=== PATIENT | male | born 1945 | race Caucasian/White ===

== ENCOUNTER 2016-10-28 16:36 | Inpatient (IN) ==
[2016-10-28] MEDS ORDERED: cefTRIAXone 1,000 MG in SODIUM CHLORIDE 0.9% 100 ML IV STA (17:48)
--- NOTE | 2016-10-28 17:48 | Emergency Department Note ---
Arrival - Arrival Chief Complaint: Urogenital - Male Stated Complaint: Bad infection-wrong Antibiotic given ED Nursing Triage Note: pt was seen here thursday morning and had a uti. pt was told today that he needs to be admitted to change antibiotics Mode of Arrival: Wheelchair Source: Patient Time Seen by Provider: 10/28/16 17:31 - History of Present Illness HPI Narrative: 71 y/o white male presents to the ER stating he needs to be admitted for his UTI. Patient was seen in the ER Thursday, diagnosed with a UTI, and sent home on Cipro. He was notified by the ER and Dr. Degroot's office that his blood cultures came back positive for E. Coli and he needs to be admitted. Patient states "I self catheterize three times a day due to a week bladder". Denies fever, chills, or nausea/vomiting. States he does have a decreased appetite, hematuria, and weakness. Past medical history significant for dyslipidemia, hypothyroidism, skin cancer, toe amputations. Primary Care Physician: Dr. Degroot. Onset (ago): day(s) (3) Severity: mild Allergies/Adverse Reactions: Allergies Allergy/AdvReac Type Severity Reaction Status Date / Time Sulfa (Sulfonamide Allergy RASH Verified 09/12/16 22:45 Antibiotics) Home Medications: Home Medications Medication Instructions Recorded Confirmed Type Insulin NPH/Regular 70/30 [HumuLIN 85 unit SUBCUT DIRECTED 12/25/15 09/12/16 History 70/30] Multivit-Min/FA/Lycopen/Lutein 1 each PO DAILY 12/25/15 09/12/16 History [Centrum Silver Tablet] Pravastatin [Pravachol] 40 mg PO DAILY 12/25/15 09/12/16 History Insulin NPH/Regular 70/30 [HumuLIN 61 units SUBCUT BEDTIME 02/05/16 09/12/16 History 70/30] Levothyroxine Sodium 1 tablet PO DAILY 02/05/16 09/12/16 History Magnesium Oxide 1 tablet PO DAILY 02/05/16 09/12/16 History Citalopram Hydrobromide [Celexa] 20 mg PO DAILY 09/12/16 09/12/16 History Ciprofloxacin Tab [Cipro Tab] 500 mg PO Q12HR #20 tablet 09/13/16 Rx Ciprofloxacin Tab [Cipro Tab] 500 mg PO BID #20 tablet 10/26/16 Rx Phenazopyridine HCl [Pyridium] 200 mg PO TID #9 tablet 10/26/16 Rx Review of System - Review of System 12 point system: reviewed and no additional remarkable complaints except as stated - Review of System Constitutional: Present: weakness, other (decreased appetite ) Genitourinary male: Present: hematuria Medical,Surgical,& Family Hx - Medical History Neurology: No history of: Seizures HEENT: History of: Ear Problem ([place]), Eye Problem (left eye blindness), Dental Problems (implants) Endocrine: History of: Diabetes Mellitus (IDDM), Dyslipidemia, Thyroid Disorder Genitourinary: History of: Bladder Problem ([place]) No history of: Prostate Problems (pt states no prostate problems) Gastrointestinal: History of: Polyps (removed) Musculoskeletal: History of: 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, 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 digit), Back/Neck Problems Other: History of: Cancer (skin cancer) - Surgical History HEENT Surgeries: Surgical HX of: Eye Surgery (left eye, right cataract surgery) Abdominal Surgeries: Surgical HX of: Colonoscopy Reproductive Surgeries: Surgical HX of;: Cystoscopy Orthopedic Surgeries: Surgical HX of;: Orthopedic Surgery (left shoulder surgery ) - Social History Smoking Status: Never smoker Frequency of Alcohol Use: None Type of Drug Use: None Exam Vital Signs: Vital Signs Temperature 98.4 F 10/28/16 16:41 Pulse Rate 92 H 10/28/16 16:41 Respiratory Rate 18 10/28/16 16:41 Blood Pressure 124/90 10/28/16 16:41 O2 Sat by Pulse Oximetry 97 10/28/16 16:41 - General General appearance: alert, in no apparent distress - ENT ENT exam: Present: normal exam, normal oropharynx, mucous membranes moist - Chest Chest inspection: Present: normal inspection - Respiratory Respiratory exam: Present: normal lung sounds bilaterally - Cardiovascular Cardiovascular exam: Present: regular rate, normal rhythm, normal heart sounds - Abdominal Exam Abdominal exam: Present: soft, normal bowel sounds. Absent: tenderness - Extremities Exam Extremities exam: Present: normal inspection, full ROM - Back Exam Back exam: Absent: CVA tenderness (R), CVA tenderness (L) - Neurological Exam Neurological exam: Present: alert, oriented X3 - Psychiatric Psychiatric exam: Present: normal affect, normal mood - Skin Skin exam: Present: warm, dry Course - Consultations Consultation #1: Dr. Alonso Time: 18:00 (Will admit to Dr. Degroot ) Results - Labs CBC & BMP: 10/28/16 17:45 Disposition Clinical Impression: UTI (urinary tract infection) Case discussed with: patient, patient's family Disposition: Still a Patient Condition: Stable
[2016-10-28] MEDS ORDERED: cefTRIAXone 1,000 MG VIAL ONE (17:59)
[2016-10-28 18:05] LABS: Basophils # 0.1 10*3/uL (0.0-0.2); Basophils % 0.7 % (0.0-0.8); Eosinophils # 0.2 10*3/uL (0.0-0.87); Eosinophils % 2.9 % (0.00-10.9); Hematocrit 43.5 VOL% (42.0-52.0); Hemoglobin 14.7 GM/DL (14.0-18.0); Immature Granulocytes % 0.4 %; Immature Granulocytes Absolute 0.03 #; Lymphocytes # 1.3 10*3/uL (1.4-4.0); Lymphocytes % 16.4 % (21.2-54.2); Mean Corpuscular HGB Conc 33.8 GM/DL (32-36); Mean Corpuscular Hemoglobin 32 PG (27-34); Mean Corpuscular Volume 93.5 FL (87-102); Mean Platelet Volume 10.4 FL (9.6-12.0); Monocytes # 1.3 10*3/uL (0.11-0.8); Monocytes % 17.6 % (1.7-12.7); Neutrophils # 4.7 10*3/uL (1.4-7.4); Platelet Count 106 T/CUMM (130-400); Red Blood Count 4.65 MC/CUMM (3.8-5.5); Red Cell Distribution Width 12.4 % (9.3-17.3); White Blood Count 7.6 T/CUMM (4-12)
[2016-10-28 18:14] LABS: Apearance,Urine CLEAR (Clear); Bilirubin,Urine Negative (Negative); Blood, Urine Small mg/dL (Negative); Glucose,Urine (UA) Negative (Negative); Ketones,Urine Negative (Negative); Mucus,Urine Occasional /LPF (Occasional); Nitrite,Urine Positive (Negative); Protein,Urine Negative; RBC,Urine 9 /HPF (0-4); Squamous Epithelial Cell,Urine Occasional /HPF (0-10); Urine Specific Gravity 1.015 (1.001-1.035); WBC,Urine 14 /HPF (0-6)
[2016-10-28 18:15] LABS: Urine Color ORANGE (Yellow)
[2016-10-28 18:38] LABS: Calcium 8.2 MG/DL (8.5-10.1); Osmolality,Calculated 282.8 MOS/KG (273-304); Potassium 3.9 MMOL/L (3.5-5.1)
[2016-10-28 19:17] LABS: Eosinophils 5 % (0-10); Lymphocytes 17 % (20-55); Myelocytes 1 %; Segmented Neutrophils 70 % (50-85); Total Cells Counted 100
[2016-10-28 19:18] LABS: Platelet Estimate Decreased
[2016-10-28] MEDS ORDERED: GLUCAGON 1 MG VIAL IM PRN (19:41)
[2016-10-28] MEDS ORDERED: DEXTROSE 50% 25 GM/50 ML VIAL IV PRN (19:41)
[2016-10-28] MEDS ORDERED: ONDANSETRON 4 MG/2 ML VIAL IV PRN (19:41)
[2016-10-28] MEDS ORDERED: ACETAMINOPHEN 325 MG TABLET PO PRN (19:41)
[2016-10-28] MEDS: INSULIN REGULAR 100 UNIT/ML SUBCUT SCH (20:48)
[2016-10-29 06:18] LABS: Basophils # 0.1 10*3/uL (0.0-0.2); Basophils % 0.7 % (0.0-0.8); Eosinophils # 0.3 10*3/uL (0.0-0.87); Eosinophils % 3.8 % (0.00-10.9); Hematocrit 40.2 VOL% (42.0-52.0); Hemoglobin 13.5 GM/DL (14.0-18.0); Immature Granulocytes % 0.5 %; Immature Granulocytes Absolute 0.04 #; Lymphocytes # 1.8 10*3/uL (1.4-4.0); Lymphocytes % 20.1 % (21.2-54.2); Mean Corpuscular HGB Conc 33.6 GM/DL (32-36); Mean Corpuscular Hemoglobin 31 PG (27-34); Mean Corpuscular Volume 93.3 FL (87-102); Mean Platelet Volume 10.4 FL (9.6-12.0); Monocytes # 1.6 10*3/uL (0.11-0.8); Monocytes % 18.1 % (1.7-12.7); Neutrophils # 4.9 10*3/uL (1.4-7.4); Neutrophils % 56.8 % (38.7-73.9); Platelet Count 122 T/CUMM (130-400); Red Blood Count 4.31 MC/CUMM (3.8-5.5); Red Cell Distribution Width 12.1 % (9.3-17.3); White Blood Count 8.7 T/CUMM (4-12)
[2016-10-29 06:46] LABS: Eosinophils 5 % (0-10); Hypochromasia Slight; Lymphocytes 20 % (20-55); Platelet Estimate Normal; Segmented Neutrophils 61 % (50-85); Total Cells Counted 100
[2016-10-29] MEDS: DOCUSATE SODIUM 100 MG CAPSULE PO SCH ×3 (07:00→21:47)
[2016-10-29] MEDS: LEVOTHYROXINE 50 MCG TABLET PO SCH (08:28)
[2016-10-29] MEDS: MULTIVITAMIN (CENTRUM) TABLET PO SCH (08:29)
[2016-10-29] MEDS: PANTOPRAZOLE 40 MG TABLET PO SCH (08:29)
[2016-10-29] MEDS: MAGNESIUM OXIDE 400 MG TABLET PO SCH (08:30)
[2016-10-29] MEDS: ASPIRIN EC 325 MG TABLET PO SCH (08:31)
[2016-10-29] MEDS: INSULIN REGULAR 100 UNIT/ML SUBCUT SCH (08:32)
[2016-10-29] MEDS: SODIUM CHLORIDE 0.45% 1,000 ML IV SCH ×2 (08:36→18:36)
[2016-10-29 10:39] LABS: Apearance,Urine CLEAR (Clear); Bilirubin,Urine Negative (Negative); Blood, Urine Small mg/dL (Negative); Glucose,Urine (UA) Negative (Negative); Ketones,Urine Negative (Negative); Nitrite,Urine Positive (Negative); Protein,Urine Negative; RBC,Urine 6 /HPF (0-4); Squamous Epithelial Cell,Urine Occasional /HPF (0-10); Urine Color Amber (Yellow); WBC,Urine 4 /HPF (0-6)
[2016-10-29] MEDS: cefTRIAXone 1,000 MG in SODIUM CHLORIDE 0.9% 100 ML IV SCH ×2 (11:02→21:44)
[2016-10-29] MEDS: INSULIN LISPRO 100 UNIT/ML SUBCUT SCH ×3 (11:49→21:48)
--- NOTE | 2016-10-29 12:20 | Family Practice History&Phys ---
Assessment and Plan (1) urosepsis Status: Acute Assessment and plan: We will admit and obtain appropriate culture started on appropriate antibiotic treatment Current Visit: Yes (2) type 2 diabetes mellitus Status: Chronic Assessment and plan: We'll resume home diabetic treatment and started on sliding scale Current Visit: Yes (3) hyperlipidemia Status: Chronic Assessment and plan: We'll resume home medications Current Visit: Yes (4) blindness left eye Status: Chronic Assessment and plan: Stable at present Current Visit: Yes (5) benign prostatic hypertrophy Status: Chronic Assessment and plan: Stable on present medications Current Visit: Yes (6) previous amputation multiple digits Status: Acute Assessment and plan: Stable at present Current Visit: Yes History of Present Illness Chief complaint: urosepsis History of present illness: Mr. Bardales is a 71 year old male Patient is 8-year-old white male who presented to the emergency room on Thursday with chills fever and malaise. He was found to have a urinary tract infection. He apparently was extremely weak and the emergency room physician had wanted to admit him at that time. Patient refused admission. Cultures were obtained and he was started on oral Cipro twice a day. Emergency room contacted my office stating that his blood and urine cultures were positive. They were resistant to the Cipro. We contacted Mister Bardales and he was still extremely weak with some chills but no fever. In view of the history we've recommended the be seen in the emergency room for probable admission. The patient was seen in emergency room and noted to be acutely ill and is being admitted for aggressive evaluation and treatment Home Medications Medication Instructions Recorded Confirmed Type Insulin NPH/Regular 70/30 [HumuLIN 85 unit SUBCUT AC BREAKFAST 12/25/15 History 70/30] Multivit-Min/FA/Lycopen/Lutein 1 each PO DAILY 12/25/15 10/28/16 History [Centrum Silver Tablet] Pravastatin [Pravachol] 40 mg PO BEDTIME 12/25/15 10/28/16 History Insulin NPH/Regular 70/30 [HumuLIN 61 units SUBCUT BEDTIME 02/05/16 10/28/16 History 70/30] Levothyroxine Sodium 1 tablet PO DAILY 02/05/16 10/28/16 History Magnesium Oxide 1 tablet PO DAILY 02/05/16 10/28/16 History Citalopram Hydrobromide [Celexa] 20 mg PO BEDTIME 09/12/16 10/28/16 History Phenazopyridine HCl [Pyridium] 200 mg PO TID #9 tablet 10/26/16 10/28/16 Rx Aspirin [Ecotrin] 325 mg PO DAILY 10/28/16 10/28/16 History Allergies Allergy/AdvReac Type Severity Reaction Status Date / Time Sulfa (Sulfonamide Allergy RASH Verified 09/12/16 22:45 Antibiotics) Medical,Surgical,& Family Hx - Medical History Neurology: No history of: Seizures HEENT: History of: Ear Problem ([place]), Eye Problem (left eye blindness), Dental Problems (implants) Endocrine: History of: Diabetes Mellitus (IDDM), Dyslipidemia, Thyroid Disorder Renal: Comment Only: Renal Problems (IN and Out cath at time TID) Genitourinary: History of: Bladder Problem ([place]) No history of: Prostate Problems (pt states no prostate problems) Gastrointestinal: History of: Polyps (removed) Musculoskeletal: History of: 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, 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 digit), Back/Neck Problems Other: History of: Cancer (skin cancer) - Surgical History HEENT Surgeries: Surgical HX of: Eye Surgery (left eye, right cataract surgery) Abdominal Surgeries: Surgical HX of: Colonoscopy Reproductive Surgeries: Surgical HX of;: Cystoscopy Orthopedic Surgeries: Surgical HX of;: Orthopedic Surgery (left shoulder surgery ) - Family History Family History: Reports;: Family Diabetes (mother) Denies;: Family Anesthesia Reaction, Family Cancer, Family Heart Disease, Family Hematology, Family Hypertension, Family Psychiatric Problems, Family Stroke, Additional Family History - Social History Smoking Status: Never smoker Frequency of Alcohol Use: None Type of Drug Use: None Marital Status: Lives With:: Spouse Functional capacity: uses cane/walker Exam - Constitutional Vitals: Period Temp Pulse Resp BP Sys/[place] Pulse Ox Last 24 Hr 98 F-98.9 F 78-85 18-20 106-152/61-98 95-97 General appearance: mild distress - Head Head exam: Present: normal inspection - Eye Pupils: Present: HUSSAIN - ENT ENT exam: Present: normal exam - Neck Neck exam: Present: normal inspection - Respiratory Respiratory exam: Present: clear to auscultation bilaterally - Cardiovascular Cardiovascular exam: Present: regular rate and rhythm - GI/Abdominal GI/Abdominal exam: Present: normal bowel sounds, soft - Extremities Exam Extremities exam: Present: other (patient has had amputation of multiple digits on both feet. He has scars with previous chronic infection to his lower extremities. No active infection or ulcerations noted of present and lower extremities) - Back Exam Back exam: Present: muscle spasm - Neurological Exam Neurological exam: Present: alert, oriented X3 - Psychiatric Psychiatric exam: Present: normal affect - Skin Skin exam: Present: normal color Results - Labs CBC & BMP: 10/29/16 05:35 10/28/16 17:45
[2016-10-29] MEDS: INSULIN NPH/REGULAR 70/30 100 UNIT/ML SUBCUT SCH (16:57)
[2016-10-29] MEDS: CITALOPRAM 20 MG TABLET PO SCH (21:47)
[2016-10-29] MEDS: PRAVASTATIN 40 MG TABLET PO SCH (21:48)
[2016-10-30] MEDS: SODIUM CHLORIDE 0.45% 1,000 ML IV SCH ×3 (05:15→22:35)
[2016-10-30 06:17] LABS: Basophils # 0.1 10*3/uL (0.0-0.2); Basophils % 0.6 % (0.0-0.8); Eosinophils # 0.4 10*3/uL (0.0-0.87); Eosinophils % 4.4 % (0.00-10.9); Hematocrit 40.8 VOL% (42.0-52.0); Hemoglobin 13.5 GM/DL (14.0-18.0); Immature Granulocytes % 0.7 %; Immature Granulocytes Absolute 0.06 #; Lymphocytes % 23.3 % (21.2-54.2); Mean Corpuscular HGB Conc 33.1 GM/DL (32-36); Mean Corpuscular Hemoglobin 31 PG (27-34); Mean Corpuscular Volume 94.9 FL (87-102); Mean Platelet Volume 9.9 FL (9.6-12.0); Monocytes # 1.2 10*3/uL (0.11-0.8); Monocytes % 14.5 % (1.7-12.7); Neutrophils # 4.7 10*3/uL (1.4-7.4); Neutrophils % 56.5 % (38.7-73.9); Platelet Count 116 T/CUMM (130-400); Red Cell Distribution Width 12.1 % (9.3-17.3); White Blood Count 8.4 T/CUMM (4-12)
[2016-10-30 06:57] LABS: Albumin 2.7 G/DL (3.4-5.0); Bilirubin,Total 0.7 MG/DL (0.2-1.0); Calcium 7.9 MG/DL (8.5-10.1); Magnesium 1.8 MG/DL (1.8-2.4); Osmolality,Calculated 282.5 MOS/KG (273-304); Potassium 3.8 MMOL/L (3.5-5.1); Risk Ratio 5.36; Total Protein 5.7 G/DL (6.4-8.3); VLDL CHOLESTEROL 39.2 MG/DL
[2016-10-30 07:14] LABS: Free T4 (Free Thyroxine) 1.2 NG/DL (0.76-1.46); Thyroid Stimulating Hormone 5.79 uIU/ml (0.358-3.74)
[2016-10-30] MEDS: LEVOTHYROXINE 50 MCG TABLET PO SCH (07:36)
[2016-10-30] MEDS: INSULIN LISPRO 100 UNIT/ML SUBCUT SCH ×4 (07:58→22:24)
--- NOTE | 2016-10-30 08:03 | Family Practice Progress Note ---
Family Practice - PN: Subj Interval history: Patient states that he feels better. Complaining of excessive urination so reduce fluid intake. His vitals have remained stable. His a.m. labs are stable. Cultures are pending but we had cultures for blood and urine done in emergency room which were positive at time of admission. Reviewed chart in detail. Denies any new complaints Appearance-general alert and oriented HEENT-no acute changes Heart-regular rate and rhythm no murmurs Lungs-clear to auscultation Abdomen-soft and nontender Extremities-slight edema Neurological exam-stable to present P L A N -we will continue present IV antibiotics and treatment plan. Will await the results of repeat cultures. Hopefully will continue to improve Exam (Progress Note) - Constitutional Vitals: Period Temp Pulse Resp BP Sys/[place] Pulse Ox Last 24 Hr 97.8 F-99.1 F 75-84 18-22 106-148/61-82 94-98 Results - Labs CBC & BMP: 10/30/16 05:46 10/30/16 05:46 Assessment and Plan (1) urosepsis Status: Acute Assessment and plan: We will admit and obtain appropriate culture started on appropriate antibiotic treatment Current Visit: Yes (2) type 2 diabetes mellitus Status: Chronic Assessment and plan: We'll resume home diabetic treatment and started on sliding scale Current Visit: Yes (3) hyperlipidemia Status: Chronic Assessment and plan: We'll resume home medications Current Visit: Yes (4) blindness left eye Status: Chronic Assessment and plan: Stable at present Current Visit: Yes (5) benign prostatic hypertrophy Status: Chronic Assessment and plan: Stable on present medications Current Visit: Yes (6) previous amputation multiple digits Status: Acute Assessment and plan: Stable at present Current Visit: Yes
[2016-10-30] MEDS: cefTRIAXone 1,000 MG in SODIUM CHLORIDE 0.9% 100 ML IV SCH ×2 (08:14→22:20)
[2016-10-30] MEDS: DOCUSATE SODIUM 100 MG CAPSULE PO SCH ×2 (08:24→22:19)
[2016-10-30] MEDS: ASPIRIN EC 325 MG TABLET PO SCH (08:24)
[2016-10-30] MEDS: MAGNESIUM OXIDE 400 MG TABLET PO SCH (08:24)
[2016-10-30] MEDS: PANTOPRAZOLE 40 MG TABLET PO SCH (08:24)
[2016-10-30] MEDS: MULTIVITAMIN (CENTRUM) TABLET PO SCH (08:24)
--- NOTE | 2016-10-30 12:52 | Physician Query Form ---
CLICK EDIT DOCUMENT TO SELECT QUERY ANSWER --> OK --> SIGN Franci Issa RN Clinical Global Compensation Manager W) [phone] (f) [phone] [email or web address] PROVIDERS: Make your selection(s) from the choices in EACH section by typing an "x" and enter comments in the comment section. Please use your independent medical judgment in providing your response. This request does not imply that any particular answer is desired or expected. CLINICAL INDICATORS: (Providers should not edit this section) Based on documentation of "Acute urosepsis" "Admitted for UTI" Patient stated " I self catheterize three times a day due to a week bladder". Treated with IV Rocephin. Collected another urine culture. Based on the above, could you clarify the appropriate diagnosis, if significant , that supports the above abnormalities and additional evaluation, monitoring, and/or treatment rendered: ( ) UTI due to self catheterization ( ) UTI not due to self catheterization ( ) Other, please specify: (x ) Clinically unable to determine COMMENTS: Use of terms such as suspected, likely, or probable (associated with a specific diagnosis that is being evaluated, monitored, or treated as if it exists) are acceptable and can be restated in the discharge summary if not ruled out. [facility]
[2016-10-30] MEDS: INSULIN NPH/REGULAR 70/30 100 UNIT/ML SUBCUT SCH (17:13)
[2016-10-30] MEDS: PRAVASTATIN 40 MG TABLET PO SCH (22:19)
[2016-10-30] MEDS: CITALOPRAM 20 MG TABLET PO SCH (22:19)
[2016-10-31 05:47] LABS: Basophils # 0.1 10*3/uL (0.0-0.2); Basophils % 0.6 % (0.0-0.8); Eosinophils # 0.4 10*3/uL (0.0-0.87); Eosinophils % 4.9 % (0.00-10.9); Hematocrit 38.9 VOL% (42.0-52.0); Hemoglobin 13.3 GM/DL (14.0-18.0); Immature Granulocytes % 1.3 %; Immature Granulocytes Absolute 0.11 #; Lymphocytes % 22.8 % (21.2-54.2); Mean Corpuscular HGB Conc 34.2 GM/DL (32-36); Mean Corpuscular Hemoglobin 31 PG (27-34); Mean Corpuscular Volume 91.1 FL (87-102); Monocytes % 11.8 % (1.7-12.7); Neutrophils # 5.1 10*3/uL (1.4-7.4); Neutrophils % 58.6 % (38.7-73.9); Platelet Count 131 T/CUMM (130-400); Red Blood Count 4.27 MC/CUMM (3.8-5.5); Red Cell Distribution Width 12.2 % (9.3-17.3); White Blood Count 8.7 T/CUMM (4-12)
[2016-10-31] MEDS: LEVOTHYROXINE 50 MCG TABLET PO SCH (07:11)
[2016-10-31] MEDS: INSULIN LISPRO 100 UNIT/ML SUBCUT SCH ×4 (08:00→21:53)
[2016-10-31] MEDS: cefTRIAXone 1,000 MG in SODIUM CHLORIDE 0.9% 100 ML IV SCH ×2 (12:09→21:45)
[2016-10-31] MEDS: DOCUSATE SODIUM 100 MG CAPSULE PO SCH ×2 (12:10→21:46)
[2016-10-31] MEDS: MULTIVITAMIN (CENTRUM) TABLET PO SCH (12:10)
[2016-10-31] MEDS: MAGNESIUM OXIDE 400 MG TABLET PO SCH (12:10)
[2016-10-31] MEDS: PANTOPRAZOLE 40 MG TABLET PO SCH (12:10)
[2016-10-31] MEDS: ASPIRIN EC 325 MG TABLET PO SCH (12:11)
--- NOTE | 2016-10-31 14:35 | Family Practice Progress Note ---
Family Practice - PN: Subj Interval history: Patient continues to slowly improve. Tolerating treatment plan. A.m. lab studies are stable. Will obtain copies of culture done in the emergency room and placed on chart. Had positive blood and urine cultures in the emergency room. His physical exam is stable. We will continue present treatment plan hopefully can discharge on Thursday Exam (Progress Note) - Constitutional Vitals: Period Temp Pulse Resp BP Sys/[place] Pulse Ox Last 24 Hr 97 F-98.3 F 67-74 18-20 117-154/73-87 95-98 Results - Labs CBC & BMP: 10/31/16 04:58 10/30/16 05:46 Assessment and Plan (1) urosepsis Status: Acute Assessment and plan: We will admit and obtain appropriate culture started on appropriate antibiotic treatment Current Visit: Yes (2) type 2 diabetes mellitus Status: Chronic Assessment and plan: We'll resume home diabetic treatment and started on sliding scale Current Visit: Yes (3) hyperlipidemia Status: Chronic Assessment and plan: We'll resume home medications Current Visit: Yes (4) blindness left eye Status: Chronic Assessment and plan: Stable at present Current Visit: Yes (5) benign prostatic hypertrophy Status: Chronic Assessment and plan: Stable on present medications Current Visit: Yes (6) previous amputation multiple digits Status: Acute Assessment and plan: Stable at present Current Visit: Yes
[2016-10-31] MEDS: INSULIN NPH/REGULAR 70/30 100 UNIT/ML SUBCUT SCH (18:18)
[2016-10-31] MEDS: PRAVASTATIN 40 MG TABLET PO SCH (21:46)
[2016-10-31] MEDS: CITALOPRAM 20 MG TABLET PO SCH (21:46)
[2016-11-01 05:47] LABS: Basophils # 0.1 10*3/uL (0.0-0.2); Basophils % 0.6 % (0.0-0.8); Eosinophils # 0.4 10*3/uL (0.0-0.87); Eosinophils % 4.3 % (0.00-10.9); Hematocrit 41.1 VOL% (42.0-52.0); Hemoglobin 13.8 GM/DL (14.0-18.0); Immature Granulocytes % 1.3 %; Immature Granulocytes Absolute 0.12 #; Lymphocytes # 2.4 10*3/uL (1.4-4.0); Lymphocytes % 25.6 % (21.2-54.2); Mean Corpuscular HGB Conc 33.6 GM/DL (32-36); Mean Corpuscular Hemoglobin 32 PG (27-34); Mean Corpuscular Volume 93.8 FL (87-102); Mean Platelet Volume 9.9 FL (9.6-12.0); Monocytes % 10.3 % (1.7-12.7); Neutrophils # 5.4 10*3/uL (1.4-7.4); Neutrophils % 57.9 % (38.7-73.9); Platelet Count 145 T/CUMM (130-400); Red Blood Count 4.38 MC/CUMM (3.8-5.5); Red Cell Distribution Width 11.9 % (9.3-17.3); White Blood Count 9.3 T/CUMM (4-12)
[2016-11-01] MEDS: LEVOTHYROXINE 50 MCG TABLET PO SCH (06:13)
--- NOTE | 2016-11-01 09:50 | Family Practice Progress Note ---
Family Practice - PN: Subj Interval history: Patient continues to slowly improve. He sitting in a chair today. States overall he feels much better. Remains afebrile. His a.m. labs are stable. He was admitted with urosepsis and was very ill so I plan to continue antibiotics over the weekend hopefully can discharge on Thursday if improved. His physical examination is otherwise stable. Exam (Progress Note) - Constitutional Vitals: Period Temp Pulse Resp BP Sys/[place] Pulse Ox Last 24 Hr 97.5 F-98 F 68-85 17-20 111-156/68-84 94-97 Results - Labs CBC & BMP: 11/01/16 05:19 10/30/16 05:46 Assessment and Plan (1) urosepsis Status: Acute Assessment and plan: We will admit and obtain appropriate culture started on appropriate antibiotic treatment Current Visit: Yes (2) type 2 diabetes mellitus Status: Chronic Assessment and plan: We'll resume home diabetic treatment and started on sliding scale Current Visit: Yes (3) hyperlipidemia Status: Chronic Assessment and plan: We'll resume home medications Current Visit: Yes (4) blindness left eye Status: Chronic Assessment and plan: Stable at present Current Visit: Yes (5) benign prostatic hypertrophy Status: Chronic Assessment and plan: Stable on present medications Current Visit: Yes (6) previous amputation multiple digits Status: Acute Assessment and plan: Stable at present Current Visit: Yes
[2016-11-01] MEDS: cefTRIAXone 1,000 MG in SODIUM CHLORIDE 0.9% 100 ML IV SCH ×2 (10:21→21:36)
[2016-11-01] MEDS: PANTOPRAZOLE 40 MG TABLET PO SCH (10:22)
[2016-11-01] MEDS: MAGNESIUM OXIDE 400 MG TABLET PO SCH (10:23)
[2016-11-01] MEDS: MULTIVITAMIN (CENTRUM) TABLET PO SCH (10:23)
[2016-11-01] MEDS: INSULIN LISPRO 100 UNIT/ML SUBCUT SCH ×4 (10:23→21:35)
[2016-11-01] MEDS: DOCUSATE SODIUM 100 MG CAPSULE PO SCH ×2 (10:23→21:34)
[2016-11-01] MEDS: ASPIRIN EC 325 MG TABLET PO SCH (10:23)
[2016-11-01] MEDS: INSULIN NPH/REGULAR 70/30 100 UNIT/ML SUBCUT SCH (17:55)
[2016-11-01] MEDS: SODIUM CHLORIDE 0.45% 1,000 ML IV SCH (17:58)
[2016-11-01] MEDS: CITALOPRAM 20 MG TABLET PO SCH (21:34)
[2016-11-01] MEDS: PRAVASTATIN 40 MG TABLET PO SCH (21:34)
[2016-11-02] MEDS: SODIUM CHLORIDE 0.45% 1,000 ML IV SCH ×2 (06:04→17:00)
[2016-11-02] MEDS: LEVOTHYROXINE 50 MCG TABLET PO SCH (06:07)
[2016-11-02] MEDS: INSULIN LISPRO 100 UNIT/ML SUBCUT SCH ×4 (09:31→21:26)
[2016-11-02] MEDS: PANTOPRAZOLE 40 MG TABLET PO SCH (09:33)
[2016-11-02] MEDS: ASPIRIN EC 325 MG TABLET PO SCH (09:33)
[2016-11-02] MEDS: MULTIVITAMIN (CENTRUM) TABLET PO SCH (09:34)
[2016-11-02] MEDS: DOCUSATE SODIUM 100 MG CAPSULE PO SCH ×2 (09:34→21:25)
[2016-11-02] MEDS: MAGNESIUM OXIDE 400 MG TABLET PO SCH (09:34)
[2016-11-02] MEDS: cefTRIAXone 1,000 MG in SODIUM CHLORIDE 0.9% 100 ML IV SCH ×2 (09:34→21:30)
--- NOTE | 2016-11-02 12:31 | Family Practice Progress Note ---
Family Practice - PN: Subj Interval history: Patient states he continues to slowly improve. Requires almost total care. Still has no areas of skin breakdown. Vitals remained stable. Urine and blood cultures are positive for E. coli sensitive to present medication. Physical examination remains stable. The cultures obtained on admission are no growth but the cultures obtained on 10/26/2016 both blood and urine were positive for E. coli. We will continue present therapy possibly discharge a.m. Exam (Progress Note) - Constitutional Vitals: Period Temp Pulse Resp BP Sys/[place] Pulse Ox Last 24 Hr 97.5 F-97.8 F 69-78 18-20 138-171/73-88 97-98 Results - Labs CBC & BMP: 11/01/16 05:19 10/30/16 05:46 Assessment and Plan (1) urosepsis Status: Acute Assessment and plan: We will admit and obtain appropriate culture started on appropriate antibiotic treatment Current Visit: Yes (2) type 2 diabetes mellitus Status: Chronic Assessment and plan: We'll resume home diabetic treatment and started on sliding scale Current Visit: Yes (3) hyperlipidemia Status: Chronic Assessment and plan: We'll resume home medications Current Visit: Yes (4) blindness left eye Status: Chronic Assessment and plan: Stable at present Current Visit: Yes (5) benign prostatic hypertrophy Status: Chronic Assessment and plan: Stable on present medications Current Visit: Yes (6) previous amputation multiple digits Status: Acute Assessment and plan: Stable at present Current Visit: Yes
[2016-11-02] MEDS: INSULIN NPH/REGULAR 70/30 100 UNIT/ML SUBCUT SCH (18:00)
[2016-11-02] MEDS: PRAVASTATIN 40 MG TABLET PO SCH (21:25)
[2016-11-02] MEDS: CITALOPRAM 20 MG TABLET PO SCH (21:25)
[2016-11-03] MEDS: LEVOTHYROXINE 50 MCG TABLET PO SCH (06:01)
[2016-11-03 06:38] LABS: Basophils # 0.1 10*3/uL (0.0-0.2); Basophils % 0.6 % (0.0-0.8); Eosinophils # 0.3 10*3/uL (0.0-0.87); Eosinophils % 3.5 % (0.00-10.9); Hematocrit 38.5 VOL% (42.0-52.0); Hemoglobin 13.1 GM/DL (14.0-18.0); Immature Granulocytes % 1.7 %; Immature Granulocytes Absolute 0.15 #; Lymphocytes # 2.3 10*3/uL (1.4-4.0); Lymphocytes % 26.3 % (21.2-54.2); Mean Corpuscular Hemoglobin 32 PG (27-34); Mean Corpuscular Volume 92.8 FL (87-102); Mean Platelet Volume 10.1 FL (9.6-12.0); Monocytes # 0.8 10*3/uL (0.11-0.8); Neutrophils # 5.1 10*3/uL (1.4-7.4); Neutrophils % 58.9 % (38.7-73.9); Platelet Count 165 T/CUMM (130-400); Red Blood Count 4.15 MC/CUMM (3.8-5.5); White Blood Count 8.6 T/CUMM (4-12)
[2016-11-03 07:00] LABS: Osmolality,Calculated 284.3 MOS/KG (273-304); Potassium 4.4 MMOL/L (3.5-5.1)
--- NOTE | 2016-11-03 08:16 | Family Practice Progress Note ---
Family Practice - PN: Subj Interval history: Family states that patient is having difficulty swallowing. Apparently he is choking on some of her food. This is the first time this has been mentioned. She is otherwise improving. A.m. labs revealed sodium of 130. Physical is otherwise stable. Will change IV fluids to correct hyponatremia and consult speech therapy for dysphagia. Exam (Progress Note) - Constitutional Vitals: Period Temp Pulse Resp BP Sys/[place] Pulse Ox Last 24 Hr 97 F-98.1 F 70-75 18-20 137-161/65-85 95-98 Results - Labs CBC & BMP: 11/03/16 05:30 11/03/16 05:30 Assessment and Plan (1) urosepsis Status: Acute Assessment and plan: We will admit and obtain appropriate culture started on appropriate antibiotic treatment Current Visit: Yes (2) type 2 diabetes mellitus Status: Chronic Assessment and plan: We'll resume home diabetic treatment and started on sliding scale Current Visit: Yes (3) hyperlipidemia Status: Chronic Assessment and plan: We'll resume home medications Current Visit: Yes (4) blindness left eye Status: Chronic Assessment and plan: Stable at present Current Visit: Yes (5) benign prostatic hypertrophy Status: Chronic Assessment and plan: Stable on present medications Current Visit: Yes (6) previous amputation multiple digits Status: Acute Assessment and plan: Stable at present Current Visit: Yes
--- NOTE | 2016-11-03 08:19 | Family Practice Progress Note ---
Family Practice - PN: Subj Interval history: Patient is still very weak but improved. A.m. lab studies are stable. Patient and are requesting hospital bed and a lift in order for her to be able to care for him at home. Will consult social service assistant to see if we can arrange this equipment. Hopefully can discharge in a.m. Exam (Progress Note) - Constitutional Vitals: Period Temp Pulse Resp BP Sys/[place] Pulse Ox Last 24 Hr 97 F-98.1 F 70-75 18-20 137-161/65-85 95-98 Results - Labs CBC & BMP: 11/03/16 05:30 11/03/16 05:30 Assessment and Plan (1) urosepsis Status: Acute Assessment and plan: We will admit and obtain appropriate culture started on appropriate antibiotic treatment Current Visit: Yes (2) type 2 diabetes mellitus Status: Chronic Assessment and plan: We'll resume home diabetic treatment and started on sliding scale Current Visit: Yes (3) hyperlipidemia Status: Chronic Assessment and plan: We'll resume home medications Current Visit: Yes (4) blindness left eye Status: Chronic Assessment and plan: Stable at present Current Visit: Yes (5) benign prostatic hypertrophy Status: Chronic Assessment and plan: Stable on present medications Current Visit: Yes (6) previous amputation multiple digits Status: Acute Assessment and plan: Stable at present Current Visit: Yes
[2016-11-03] MEDS: ASPIRIN EC 325 MG TABLET PO SCH (08:45)
[2016-11-03] MEDS: INSULIN LISPRO 100 UNIT/ML SUBCUT SCH ×2 (08:45→11:30)
[2016-11-03] MEDS: MAGNESIUM OXIDE 400 MG TABLET PO SCH (08:45)
[2016-11-03] MEDS: DOCUSATE SODIUM 100 MG CAPSULE PO SCH (08:45)
[2016-11-03] MEDS: PANTOPRAZOLE 40 MG TABLET PO SCH (08:45)
[2016-11-03] MEDS: MULTIVITAMIN (CENTRUM) TABLET PO SCH (08:45)
[2016-11-03] MEDS: cefTRIAXone 1,000 MG in SODIUM CHLORIDE 0.9% 100 ML IV SCH (08:46)
[2016-11-03 09:33] VITALS: BP 122/70
--- NOTE | 2016-11-03 10:31 | Discharge Summary ---
Hospital Course - Hospital Course Hospital Course: Mr. Bardales is a 71 year old male Patient is 8-year-old white male who presented to the emergency room on Thursday with chills fever and malaise. He was found to have a urinary tract infection. He apparently was extremely weak and the emergency room physician had wanted to admit him at that time. Patient refused admission. Cultures were obtained and he was started on oral Cipro twice a day. Emergency room contacted my office stating that his blood and urine cultures were positive. They were resistant to the Cipro. We contacted Mister Bardales and he was still extremely weak with some chills but no fever. In view of the history we've recommended the be seen in the emergency room for probable admission. The patient was seen in emergency room and noted to be acutely ill and is being admitted for aggressive evaluation and treatment HOSPITAL COURSE - the patient was admitted to the emergency room. He had both blood and urine cultures positive for Escherichia coli. The cultures revealed that the antibiotic that he had previously been started on was not sensitive to that organism. The patient was still having some chills and severe weakness. The patient was admitted and started on appropriate antibiotic therapy. He had a. Slow but steady improvement throughout admission. The repeat cultures during hospitalization were no growth but patient had been on an antibiotic prior to those cultures. He was feeling much improved at time of discharge. We'll discharge patient to home care and continue present medications. We'll arrange follow-up to the clinic. We'll have him call or return to emergency room if condition worsens or new problems develop Diagnosis - Discharge Diagnosis (1) urosepsis Status: Acute (2) type 2 diabetes mellitus Status: Chronic (3) hyperlipidemia Status: Chronic (4) blindness left eye Status: Chronic (5) benign prostatic hypertrophy Status: Chronic (6) previous amputation multiple digits Status: Acute Specialty Discharge - Follow Up or Referrals Follow up with: Clement Degroot DO [Primary Care Provider] - 11/17/16 11:00 am Discharge Plan - Discharge Data Disposition: Disch To Home/Self Care Condition at Discharge: Stable Discharge Diet: diabetic diet Activity: resume usual activities as tolerated Hygiene: no restrictions Weight Bearing at Discharge: weight bear as tolerated Contact your physician if you experience:: fever over 101, Shortness of breath - Discharge Medications New Cefuroxime Tab [Ceftin] 500 mg PO BID #20 tablet Continue Multivit-Min/FA/Lycopen/Lutein [Centrum Silver Tablet] 1 each PO DAILY Insulin NPH/Regular 70/30 [HumuLIN 70/30] 85 unit SUBCUT AC BREAKFAST Pravastatin [Pravachol] 40 mg PO BEDTIME Insulin NPH/Regular 70/30 [HumuLIN 70/30] 61 units SUBCUT BEDTIME Levothyroxine Sodium 1 tablet PO DAILY Magnesium Oxide 1 tablet PO DAILY Aspirin [Ecotrin] 325 mg PO DAILY Citalopram Hydrobromide [Celexa] 20 mg PO BEDTIME Phenazopyridine HCl [Pyridium] 200 mg PO TID #9 tablet - Follow Up or Referral Follow Up: Clement Degroot DO [Primary Care Provider] - 11/17/16 11:00 am - Forms/Instructions Exam - Constitutional Vitals: Period Temp Pulse Resp BP Sys/[place] Pulse Ox Last 24 Hr 97 F-98.1 F 70-80 18-20 122-161/65-85 95-98 General appearance: no acute distress - Head Head exam: Present: normal inspection - Eye Pupils: Present: HUSSAIN - ENT ENT exam: Present: normal exam - Neck Neck exam: Present: normal inspection - Respiratory Respiratory exam: Present: clear to auscultation bilaterally - Cardiovascular Cardiovascular exam: Present: regular rate and rhythm - GI/Abdominal GI/Abdominal exam: Present: normal bowel sounds, soft - Extremities Exam Extremities exam: Present: full ROM, edema - Back Exam Back exam: Present: normal inspection - Neurological Exam Neurological exam: Present: alert, other (patient unable to stand due to severe weakness) - Psychiatric Psychiatric exam: Present: flat affect - Skin Skin exam: Present: normal color Discharge Results Procedures and tests throughout hospitalization: Pending Orders 11/04/16 04:00 Comp Blood Count Auto Diff IN AM Comprehensive Metabolic Panel IN AM Labs on day of discharge: Labs from last 24 hours 11/03/16 11/03/16 11/03/16 07:27 05:30 05:30 WBC 8.6 RBC 4.15 Hgb 13.1 L Hct 38.5 L MCV 92.8 MCH 32 MCHC 34.0 RDW 12.0 Plt Count 165 MPV 10.1 Neut % (Auto) 58.9 Lymph % (Auto) 26.3 [place] % (Auto) 9.0 Eos % (Auto) 3.5 Baso % (Auto) 0.6 Neut # (Auto) 5.1 Lymph # (Auto) 2.3 [place] # (Auto) 0.8 Eos # (Auto) 0.3 Baso # (Auto) 0.1 Immature Gran % 1.7 Nucleated RBC % 0.0 Immature Gran # 0.15 Nucleated RBCs # 0.00 Sodium 141 Potassium 4.4 Chloride 103 Carbon Dioxide 32 Anion Gap 10.4 BUN 17 Creatinine 1.30 GFR Calculation 76 BUN/Creatinine Ratio 13.00 Glucose 139 H POC Glucose 156 H Calculated Osmolality 284.3 Calcium 8.0 L 11/02/16 11/02/16 11/02/16 20:26 17:06 12:13 WBC RBC Hgb Hct MCV MCH MCHC RDW Plt Count MPV Neut % (Auto) Lymph % (Auto) [place] % (Auto) Eos % (Auto) Baso % (Auto) Neut # (Auto) Lymph # (Auto) [place] # (Auto) Eos # (Auto) Baso # (Auto) Immature Gran % Nucleated RBC % Immature Gran # Nucleated RBCs # Sodium Potassium Chloride Carbon Dioxide Anion Gap BUN Creatinine GFR Calculation BUN/Creatinine Ratio Glucose POC Glucose 222 H 215 H 174 H Calculated Osmolality Calcium DS: Provider Date of admission: 10/29/16 07:43 Primary care physician: Clement Degroot DO Attending physician on admission: Clement Degroot DO Consults: 10/29/16 08:19 Consult to Physical Therapy [CONS] Routine Reason for Physical Therapy: Weakness Start Therapy: Today 11/03/16 08:17 Consult to Case Mgmt/Social Srvs [CONS] Routine Reason for Case Mgmt/Social Srvs: Equipment Consult Comment: Patient needs a hospital bed and left on discharge 11/03/16 08:43 Consult to Case Mgmt/Social Srvs [CONS] Routine Reason for Case Mgmt/Social Srvs: Equipment Consult Comment: Patient needs a hospital bed and chelsea lift on discharge Discharging clinician: Clement Degroot DO
[2016-11-03] MEDS ORDERED: CEFUROXIME 500 MG TABLET PO SCH (21:00)
== END 2016-11-03 12:05 | disposition home or self-care (01) | DRG 690 ==
LOC: N.EDINP 16:36 → N.ED 16:36 → N.2E 18:19
PROVIDERS: ADMIT Family Medicine; ATTEND Family Medicine

== ENCOUNTER 2017-04-02 23:54 | Inpatient (IN) ==
[2017-04-03] MEDS ORDERED: cefTRIAXone 1,000 MG in SODIUM CHLORIDE 0.9% 100 ML IV STA (02:40)
[2017-04-03] MEDS ORDERED: SODIUM CHLORIDE 0.9% 2,000 ML IV STA (02:40)
[2017-04-03 02:49] LABS: Basophils # 0.1 10*3/uL (0.0-0.2); Basophils % 0.4 % (0.0-0.8); Eosinophils # 0.1 10*3/uL (0.0-0.87); Eosinophils % 0.8 % (0.00-10.9); Hematocrit 41.2 VOL% (42.0-52.0); Hemoglobin 14.9 GM/DL (14.0-18.0); Immature Granulocytes % 0.6 %; Immature Granulocytes Absolute 0.07 #; Lymphocytes # 0.8 10*3/uL (1.4-4.0); Lymphocytes % 6.7 % (21.2-54.2); Mean Corpuscular HGB Conc 36.2 GM/DL (32-36); Mean Corpuscular Hemoglobin 34 PG (27-34); Mean Corpuscular Volume 93.6 FL (87-102); Mean Platelet Volume 10.6 FL (9.6-12.0); Monocytes # 1.4 10*3/uL (0.11-0.8); Monocytes % 12.3 % (1.7-12.7); Neutrophils # 8.9 10*3/uL (1.4-7.4); Neutrophils % 79.2 % (38.7-73.9); Platelet Count 107 T/CUMM (130-400); White Blood Count 11.2 T/CUMM (4-12)
[2017-04-03 02:55] LABS: Apearance,Urine Slightly Hazy (Clear); Bacteria,Urine Many /HPF (Few); Bilirubin,Urine Negative (Negative); Blood, Urine Moderate mg/dL (Negative); Glucose,Urine (UA) 50 mg/dL (Negative); Ketones,Urine Negative (Negative); Mucus,Urine Occasional /LPF (Occasional); Nitrite,Urine Negative (Negative); Protein,Urine 30 MG/DL; RBC,Urine 3 /HPF (0-4); Squamous Epithelial Cell,Urine Occasional /HPF (0-10); Urine Color Yellow (Yellow); Urine Specific Gravity 1.014 (1.001-1.035); Urine Urobilinogen < 2.0 EU/DL (0.2-1.0); WBC,Urine 31 /HPF (0-6)
[2017-04-03 03:00] LABS: Albumin 3.7 G/DL (3.4-5.0); Bilirubin,Total 0.9 MG/DL (0.2-1.0); Calcium 8.9 MG/DL (8.5-10.1); Osmolality,Calculated 289.4 MOS/KG (273-304); Potassium 3.8 MMOL/L (3.5-5.1); Total Protein 6.8 G/DL (6.4-8.3)
[2017-04-03] MEDS ORDERED: SODIUM CHLORIDE 0.9% 100 ML IV ONE (03:14)
[2017-04-03] MEDS ORDERED: cefTRIAXone 1,000 MG VIAL ONE (03:14)
[2017-04-03] MEDS ORDERED: ACETAMINOPHEN 325 MG TABLET PO PRN (04:18)
[2017-04-03] MEDS ORDERED: ONDANSETRON 4 MG/2 ML VIAL IV PRN (04:18)
--- NOTE | 2017-04-03 04:50 | Emergency Department Note ---
Arrival - Arrival Chief Complaint: Nausea/Vomiting/Diarrhea ED Nursing Triage Note: pt to ER 09 with c/o n/v. pt states pt has to be cathed 3 times a day. Mode of Arrival: Stretcher Time Seen by Provider: 04/03/17 02:35 - History of Present Illness HPI Narrative: This is a 71-year-old white male who self catheterizes 3 times a day who presents with fever and teeth chattering chills associated with nausea and vomiting. The family member says that the last time he had a similar presentation the cause was a urinary tract infection with spread to the bloodstream. Allergies/Adverse Reactions: Allergies Allergy/AdvReac Type Severity Reaction Status Date / Time Sulfa (Sulfonamide Allergy RASH Verified 04/03/17 00:05 Antibiotics) Home Medications: Home Medications Medication Instructions Recorded Confirmed Type Insulin NPH/Regular 70/30 [HumuLIN 85 unit SUBCUT AC BREAKFAST 12/25/15 History 70/30] Multivit-Min/FA/Lycopen/Lutein 1 each PO DAILY 12/25/15 04/03/17 History [Centrum Silver Tablet] Pravastatin [Pravachol] 40 mg PO BEDTIME 12/25/15 04/03/17 History Insulin NPH/Regular 70/30 [HumuLIN 61 units SUBCUT BEDTIME 02/05/16 04/03/17 History 70/30] Levothyroxine Sodium 1 tablet PO DAILY 02/05/16 04/03/17 History Magnesium Oxide 1 tablet PO DAILY 02/05/16 04/03/17 History Citalopram Hydrobromide [Celexa] 20 mg PO BEDTIME 09/12/16 04/03/17 History Aspirin [Ecotrin] 325 mg PO DAILY 10/28/16 04/03/17 History Review of System - Review of System Constitutional: Present: diaphoresis, fever Eyes: Absent: redness, vision change Head/Ears/Nose/Throat: Absent: epistaxis, nasal drainage Respiratory: Absent: respiratory distress, wheezing Cardiovascular: Absent: dyspnea on exertion, orthopnea, edema Gastrointestinal: Present: nausea, vomiting, diarrhea. Absent: constipation Genitourinary male: Absent: dysuria, hematuria Musculoskeletal: Absent: joint swelling, lower back pain Neurological: Absent: numbness, paresthesias, confusion Psychiatric: Absent: anxiety, depression Endocrine: Absent: heat intolerance, polydipsia, polyuria Hematological/Lymphatic: Absent: easy bruising, lymphadenopathy Allergic/Immunologic: Absent: urticaria, itchy eyes Medical,Surgical,& Family Hx - Medical History Cardio: History of: Cardiac Dysrhythmia (afib), Hypertension Neurology: No history of: Seizures HEENT: History of: Ear Problem ([place]), Eye Problem (left eye blindness), Dental Problems (implants) Endocrine: History of: Diabetes Mellitus (IDDM), Dyslipidemia, Thyroid Disorder Renal: Comment Only: Renal Problems (IN and Out cath at time TID) Genitourinary: History of: Bladder Problem (bl[place]) No history of: Prostate Problems (pt states no prostate problems) Gastrointestinal: History of: Polyps (removed) Musculoskeletal: History of: 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, 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 digit), Back/Neck Problems Other: History of: Cancer (skin cancer) - Surgical History HEENT Surgeries: Surgical HX of: Eye Surgery (left eye, right cataract surgery) Abdominal Surgeries: Surgical HX of: Colonoscopy Reproductive Surgeries: Surgical HX of;: Cystoscopy Orthopedic Surgeries: Surgical HX of;: Orthopedic Surgery (left shoulder surgery ) - Family History Family History: Reports;: Family Diabetes (mother) Denies;: Family Anesthesia Reaction, Family Cancer, Family Heart Disease, Family Hypertension, Family Psychiatric Problems, Family Stroke - Social History Smoking Status: Never smoker Frequency of Alcohol Use: None Type of Drug Use: None Exam Vital Signs: Vital Signs Temperature 101.6 F H 04/02/17 23:55 Pulse Rate 54 L 04/02/17 23:55 Respiratory Rate 14 04/02/17 23:55 Blood Pressure 112/66 04/02/17 23:55 O2 Sat by Pulse Oximetry 95 04/02/17 23:55 - General General appearance: alert, in no apparent distress - Eye Eye exam: Present: PERRL, EOMI - ENT ENT exam: Present: normal exam, normal oropharynx - Neck Neck exam: Present: normal inspection, full ROM - Chest Chest inspection: Present: normal inspection, symmetric chest wall rise - Respiratory Respiratory exam: Present: normal lung sounds bilaterally - Cardiovascular Cardiovascular exam: Present: regular rate, normal rhythm - Abdominal Exam Abdominal exam: Present: soft, distention - Extremities Exam Extremities exam: Present: normal inspection, full ROM - Back Exam Back exam: Present: normal inspection, full ROM - Neurological Exam Neurological exam: Present: alert, oriented X3, CN II-XII intact - Psychiatric Psychiatric exam: Present: normal affect, normal mood - Skin Skin exam: Present: warm, dry Course Course Narrative: The case was discussed with the attending who agreed to admit the patient to the hospital for IV fluids and intravenous antibiotics. Results - Labs CBC & BMP: 04/03/17 00:18 04/03/17 00:18 Disposition Clinical Impression: Urinary tract infection, Sepsis
[2017-04-03] MEDS: DEXTROSE 5% NACL 0.9% 1,000 ML IV SCH ×3 (06:16→23:25)
--- NOTE | 2017-04-03 06:28 | XRay Report ---
Portable chest Date: 04/03/2017 Clinical history: Fever Comparison: 09/12/2016 Technique: Portable AP sitting chest Findings: The heart is minimally enlarged with uncoiling of the aorta. Calcified granulomata/nodes with no definite infiltration. Unremarkable mediastinum with degenerative changes. Impression: No acute cardiopulmonary pathology identified. PROCEDURE INTERPRETED AT [facility] DEPARTMENT OF RADIOLOGY Final Report Signed by: Dr. Neema Dotson
--- NOTE | 2017-04-03 07:46 | Family Practice History&Phys ---
Assessment and Plan (1) urosepsis Status: Acute Assessment and plan: Patient admitted with probable urosepsis. Have started on appropriate empiric antibiotics and will await cultures Current Visit: No (2) Paroxysmal atrial fibrillation Status: Chronic Assessment and plan: Stable at present Current Visit: Yes (3) type 2 diabetes mellitus Status: Chronic Assessment and plan: We will resume home diabetic medications and start on sliding scale Current Visit: No (4) previous amputation multiple digits Status: Chronic Assessment and plan: Extremities are stable to present no areas of skin breakdown Current Visit: No (5) blindness left eye Status: Chronic Assessment and plan: Stable at present Current Visit: No (6) hyperlipidemia Status: Chronic Assessment and plan: Stable on present medication Current Visit: No History of Present Illness Chief complaint: Chills fever weakness History of present illness: Mr. Bardales is a 71 year old male This is a 71-year-old white male who self catheterizes 3 times a day who presents with fever and teeth chattering chills associated with nausea and vomiting. The family member says that the last time he had a similar presentation the cause was a urinary tract infection with spread to the bloodstream. Patient is generally been doing well prior to admission. He denies any areas of skin breakdown at present. Reviewing her lab studies his urine would be consistent with a urinary tract infection. After cultures were obtained and patient was started on empiric antibiotics. Will admit for further evaluation therapy Home Medications Medication Instructions Recorded Confirmed Type Insulin NPH/Regular 70/30 [HumuLIN 85 unit SUBCUT AC BREAKFAST 12/25/15 History 70/30] Multivit-Min/FA/Lycopen/Lutein 1 each PO DAILY 12/25/15 04/03/17 History [Centrum Silver Tablet] Pravastatin [Pravachol] 40 mg PO BEDTIME 12/25/15 04/03/17 History Insulin NPH/Regular 70/30 [HumuLIN 61 units SUBCUT BEDTIME 02/05/16 04/03/17 History 70/30] Levothyroxine Sodium 1 tablet PO DAILY 02/05/16 04/03/17 History Magnesium Oxide 1 tablet PO DAILY 02/05/16 04/03/17 History Citalopram Hydrobromide [Celexa] 20 mg PO BEDTIME 09/12/16 04/03/17 History Aspirin [Ecotrin] 325 mg PO DAILY 10/28/16 04/03/17 History Allergies Allergy/AdvReac Type Severity Reaction Status Date / Time Sulfa (Sulfonamide Allergy RASH Verified 04/03/17 00:05 Antibiotics) Medical,Surgical,& Family Hx - Medical History Cardio: History of: Cardiac Dysrhythmia (afib), Hypertension Neurology: No history of: Seizures HEENT: History of: Ear Problem ([place]), Eye Problem (left eye blindness), Dental Problems (implants) Endocrine: History of: Diabetes Mellitus (IDDM), Dyslipidemia, Thyroid Disorder Renal: Comment Only: Renal Problems (IN and Out cath at time TID) Genitourinary: History of: Bladder Problem (bl[place]) No history of: Prostate Problems (pt states no prostate problems) Gastrointestinal: History of: Polyps (removed) Musculoskeletal: History of: 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, 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 digit), Back/Neck Problems Other: History of: Cancer (skin cancer) - Surgical History HEENT Surgeries: Surgical HX of: Eye Surgery (left eye, right cataract surgery) Abdominal Surgeries: Surgical HX of: Colonoscopy Reproductive Surgeries: Surgical HX of;: Cystoscopy Orthopedic Surgeries: Surgical HX of;: Orthopedic Surgery (left shoulder surgery ) - Family History Family History: Reports;: Family Diabetes (mother) Denies;: Family Anesthesia Reaction, Family Cancer, Family Heart Disease, Family Hypertension, Family Psychiatric Problems, Family Stroke - Social History Smoking Status: Never smoker Frequency of Alcohol Use: None Type of Drug Use: None Marital Status: Lives With:: Spouse Functional capacity: wheelchair bound Exam - Constitutional Vitals: Period Temp Pulse Resp BP Sys/[place] Pulse Ox Last 24 Hr 98.1 F-101.6 F 54-76 14-20 112-116/66-67 95-96 General appearance: mild distress - Head Head exam: Present: normal inspection - Eye Pupils: Present: HUSSAIN - ENT ENT exam: Present: normal exam - Neck Neck exam: Present: normal inspection - Respiratory Respiratory exam: Present: clear to auscultation bilaterally - Cardiovascular Cardiovascular exam: Present: irregular rhythm - GI/Abdominal GI/Abdominal exam: Present: normal bowel sounds, soft - Extremities Exam Extremities exam: Present: full ROM - Back Exam Back exam: Present: normal inspection - Neurological Exam Neurological exam: Present: alert - Psychiatric Psychiatric exam: Present: flat affect - Skin Skin exam: Present: normal color Results - Labs CBC & BMP: 04/03/17 00:18 04/03/17 00:18 Quality Measures - VTE Contraindication to Pharmacological VTE Prophylaxis: High Risk of Bleeding
[2017-04-03] MEDS: INSULIN LISPRO 100 UNIT/ML SUBCUT SCH ×4 (09:05→21:22)
[2017-04-03] MEDS: MAGNESIUM OXIDE 400 MG TABLET PO SCH (09:06)
[2017-04-03] MEDS: MULTIVITAMIN (CENTRUM) TABLET PO SCH (09:06)
[2017-04-03] MEDS: DOCUSATE SODIUM 100 MG CAPSULE PO SCH ×2 (09:06→21:23)
[2017-04-03] MEDS: LEVOTHYROXINE 50 MCG TABLET PO SCH (09:06)
[2017-04-03] MEDS: INSULIN NPH/REGULAR 70/30 100 UNIT/ML SUBCUT SCH ×2 (09:06→16:48)
[2017-04-03] MEDS: PANTOPRAZOLE 40 MG TABLET PO SCH (09:07)
[2017-04-03] MEDS: PRAVASTATIN 40 MG TABLET PO SCH (21:23)
[2017-04-03] MEDS: CITALOPRAM 20 MG TABLET PO SCH (21:23)
[2017-04-04 05:52] LABS: Basophils % 0.5 % (0.0-0.8); Eosinophils # 0.2 10*3/uL (0.0-0.87); Eosinophils % 2.9 % (0.00-10.9); Hemoglobin 13.6 GM/DL (14.0-18.0); Immature Granulocytes % 0.4 %; Immature Granulocytes Absolute 0.03 #; Lymphocytes # 1.4 10*3/uL (1.4-4.0); Lymphocytes % 17.7 % (21.2-54.2); Mean Corpuscular HGB Conc 35.8 GM/DL (32-36); Mean Corpuscular Hemoglobin 34 PG (27-34); Mean Corpuscular Volume 94.3 FL (87-102); Monocytes # 1.3 10*3/uL (0.11-0.8); Monocytes % 15.7 % (1.7-12.7); Neutrophils % 62.8 % (38.7-73.9); Red Blood Count 4.03 MC/CUMM (3.8-5.5); Red Cell Distribution Width 12.1 % (9.3-17.3)
[2017-04-04 05:56] LABS: Platelet Count 86 T/CUMM (130-400)
[2017-04-04] MEDS: LEVOTHYROXINE 50 MCG TABLET PO SCH (06:09)
[2017-04-04 06:27] LABS: Free T4 (Free Thyroxine) 1.03 NG/DL (0.76-1.46); Osmolality,Calculated 285.3 MOS/KG (273-304); Potassium 3.9 MMOL/L (3.5-5.1); Thyroid Stimulating Hormone 6.32 uIU/ml (0.358-3.74)
--- NOTE | 2017-04-04 06:48 | Family Practice Progress Note ---
Family Practice - PN: Subj Interval history: Patient 71-year-old white male admitted with probable urosepsis. Patient states she is feeling much better and he is voiding frequently. His IV fluids running at 125 cc an hour. His urine culture is yet pending but his initial blood cultures are negative. He states his hunger this morning ready for breakfast per Exam (Progress Note) - Constitutional Vitals: Period Temp Pulse Resp BP Sys/[place] Pulse Ox Last 24 Hr 97.5 F-97.9 F 62-83 18-20 119-161/69-82 92-96 Exam: Objective a well-developed gentleman in no acute distress. He is able answer questions appropriately. Cardiovascular: Heart rate is regular there is no murmurs or gallops. Respiratory: Lungs clear to auscultation bilaterally. Abdomen: Abdomen soft and nontender to palpation. Neuro: Patient has no evidence of encephalopathy. Results - Labs CBC & BMP: 04/04/17 05:18 04/04/17 05:18 Lab Results: I have reviewed the past 24 hour labs Assessment and Plan (1) UTI (urinary tract infection) Status: Acute Assessment and plan: 04/04/2017: We will continue present IV antibiotic therapy. Urine cultures are pending. Current Visit: No Quality Measures - VTE Contraindication to Pharmacological VTE Prophylaxis: High Risk of Bleeding
[2017-04-04] MEDS: DEXTROSE 5% NACL 0.9% 1,000 ML IV SCH ×2 (07:14→16:44)
[2017-04-04 07:47] LABS: Band Neutrophils 1 % (0-10); Eosinophils 2 % (0-10); Hypochromasia 2+; Lymphocytes 11 % (20-55); Platelet Estimate Decreased; Segmented Neutrophils 75 % (50-85); Total Cells Counted 100
[2017-04-04] MEDS: INSULIN NPH/REGULAR 70/30 100 UNIT/ML SUBCUT SCH ×2 (08:43→16:46)
[2017-04-04] MEDS: INSULIN LISPRO 100 UNIT/ML SUBCUT SCH ×4 (08:43→20:45)
[2017-04-04] MEDS: ASPIRIN EC 325 MG TABLET PO SCH (08:45)
[2017-04-04] MEDS: MULTIVITAMIN (CENTRUM) TABLET PO SCH (08:45)
[2017-04-04] MEDS: PANTOPRAZOLE 40 MG TABLET PO SCH (08:45)
[2017-04-04] MEDS: MAGNESIUM OXIDE 400 MG TABLET PO SCH (08:45)
[2017-04-04] MEDS: DOCUSATE SODIUM 100 MG CAPSULE PO SCH ×2 (08:45→20:43)
[2017-04-04] MEDS ORDERED: LIDOCAINE 2% TOP JELLY 20 ML VIAL INTRAURETH ONE (16:27)
--- NOTE | 2017-04-04 17:12 | Urology Consultation ---
Assessment and Plan - Time spent with patient Time spent with patient: Less than 30 minutes (1) Urinary retention Status: Acute Assessment and plan: Likely a component of neurogenic bladder. He has had prior prostate laser ablation for BPH, and he still is unable to empty his bladder satisfactorily. He likely is developing a small amount of bladder neck contracture. Hernandez catheter was placed to maximize drainage while treating infection and allow dilation of his bladder neck. Dr. Alonso will see him early next week, and he may then elect to restart intermittent catheterization. Current Visit: Yes (2) Urinary tract infection Status: Acute Assessment and plan: Urine culture demonstrating gram-negative rods, and agree with treatment per sensitivities. Maintain Hernandez catheter maximize drainage to successfully clear infection. Current Visit: Yes Qualifiers: Urinary tract infection type: acute cystitis Hematuria presence: without hematuria Qualified Code(s): N30.00 - Acute cystitis without hematuria (3) benign prostatic hypertrophy Status: Chronic Assessment and plan: Prior history of laser ablation of the prostate, with probable neurogenic bladder component. Would leave Hernandez catheter to gravity nail, and will likely start intermittent catheterization again in the future. Thanks for opportunity to participate in the care of this patient. Dr. Rafael Alonso will assume urologic care on Thursday. I will leave the Hernandez to gravity until Dr. Alonso sees him and make further recommendations. Current Visit: No History of Present Illness - Data of Consult Patient: known to practice within the last 3 years Consult date: 04/04/17 Requesting Physician: Geoffrey Alonso - Consult Narrative History of present illness: Mr. Bardales is a 71 year old male with a history of BPH and urinary retention. He reportedly has a neurogenic bladder component. He has performed clean intermittent catheterization 3 times daily. He has been having progressive difficulty passing the Hernandez. His typically passes this, and she reports her last successful attempt was Thursday of this last week. It has now been 4 days since she was able to catheterize him. He was admitted yesterday evening with symptoms of UTI and concern for urosepsis. He was voiding some, but he has not been able to empty his bladder. Due to infection and a bladder scan of over 600 cc urology was consulted for complicated Hernandez placement. He has had prior laser ablation of the prostate. His reports he has had prior procedures for "tightness in his urinary tract". Unclear if this is for BPH or a possible bladder neck contracture in the past. She reports is been "a long time" since having any type of procedures on his prostate. Last op note was in February 2016 with reported laser ablation of his prostate. He denies current fevers or chills. He denies symptoms of urgency. Reports intermittent spasm with some fluid leakage. CC: Clement Degroot, DO Urinary retention, unable to Place Hernandez - Home Medications and Allergies Home Medications: Home Medications Medication Instructions Recorded Confirmed Type Insulin NPH/Regular 70/30 [HumuLIN 85 unit SUBCUT AC BREAKFAST 12/25/15 History 70/30] Multivit-Min/FA/Lycopen/Lutein 1 each PO DAILY 12/25/15 04/03/17 History [Centrum Silver Tablet] Pravastatin [Pravachol] 40 mg PO BEDTIME 12/25/15 04/03/17 History Insulin NPH/Regular 70/30 [HumuLIN 61 units SUBCUT BEDTIME 02/05/16 04/03/17 History 70/30] Levothyroxine Sodium 1 tablet PO DAILY 02/05/16 04/03/17 History Magnesium Oxide 1 tablet PO DAILY 02/05/16 04/03/17 History Citalopram Hydrobromide [Celexa] 20 mg PO BEDTIME 09/12/16 04/03/17 History Aspirin [Ecotrin] 325 mg PO DAILY 10/28/16 04/03/17 History Allergies/Adverse Reactions: Allergies Allergy/AdvReac Type Severity Reaction Status Date / Time Sulfa (Sulfonamide Allergy RASH Verified 04/03/17 00:05 Antibiotics) Medical,Surgical,& Family Hx - Medical History Cardio: History of: Cardiac Dysrhythmia (afib), Hypertension Neurology: No history of: Seizures HEENT: History of: Ear Problem (elim ira), Eye Problem (left eye blindness), Dental Problems (implants) Endocrine: History of: Diabetes Mellitus (IDDM), Dyslipidemia, Thyroid Disorder Renal: Comment Only: Renal Problems (IN and Out cath at time TID) Genitourinary: History of: Bladder Problem (bladeer) No history of: Prostate Problems (pt states no prostate problems) Gastrointestinal: History of: Polyps (removed) Musculoskeletal: History of: 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, 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 digit), Back/Neck Problems Other: History of: Cancer (skin cancer) - Surgical History HEENT Surgeries: Surgical HX of: Eye Surgery (left eye, right cataract surgery) Abdominal Surgeries: Surgical HX of: Colonoscopy Reproductive Surgeries: Surgical HX of;: Cystoscopy Orthopedic Surgeries: Surgical HX of;: Orthopedic Surgery (left shoulder surgery ) - Family History Family History: Reports;: Family Diabetes (mother) Denies;: Family Anesthesia Reaction, Family Cancer, Family Heart Disease, Family Hypertension, Family Psychiatric Problems, Family Stroke - Social History Smoking Status: Never smoker Frequency of Alcohol Use: None Type of Drug Use: None 12 point system: reviewed and no additional remarkable complaints except as stated - Cardiovascular Cardiovascular: Absent: chest pain at rest - Respiratory Respiratory: Absent: dyspnea, wheezing - Genitourinary Genitourinary: Present: difficulty urinating, other (Unable to pass Hernandez catheter, major resistance at bladder neck). Absent: hematuria Exam - Constitutional Vitals: Period Temp Pulse Resp BP Sys/[place] Pulse Ox Last 24 Hr 97.6 F-98.6 F 62-83 18-20 119-161/74-88 94-98 General appearance: no acute distress - Head Head exam: Present: normal inspection, normocephalic - ENT ENT exam: Present: normal oropharynx - Neck Neck exam: Present: normal inspection. Absent: lymphadenopathy - Respiratory Respiratory exam: Absent: accessory muscle use, stridor, wheezes - Cardiovascular Cardiovascular exam: Present: regular rate and rhythm. Absent: JVD - GI/Abdominal GI/Abdominal exam: Present: distended, other (Palpable bladder). Absent: tenderness, rebound - Genitourinary Genitourinary: scrotum without lesions, cysts, edema or rash, penis with no lesions or discharge - Extremities Exam Extremities exam: Present: normal capillary refill - Back Exam Back exam: Absent: CVA tenderness (L), CVA tenderness (R) - Neurological Exam Neurological exam: Present: alert, oriented X3 - Psychiatric Psychiatric exam: Present: normal affect, normal mood - Skin Skin exam: Present: warm, dry Results - Labs CBC & BMP: 04/04/17 05:18 04/04/17 05:18 Lab Results: I have reviewed the past 24 hour labs Procedures - Catheter Insertion (Urinary) Prophylactic antibiotics given: Yes (Patient on antibiotics for UTI) Bladder Scan/Ultrasound used before catheterization: Yes (620 mL) Estimated amount of urin (mLs): 620 Preparation: Povidone-Iodine Type of catheter inserted: 2 way, coude tip Catheter Malawian Size: 16 Catheter Balloon Size (mLs): 10 Topical anesthesia used: Yes (2% Xylocaine Jelly) Results: successfully catheterized-immediate flow, consulted Patient tolerated procedure: well, no complications Complications: none Additional comments: Multiple attempts by nursing staff with inability to pass the catheter. His is been catheterizing 3 times a day, and she is unable to successfully pass the catheter. After discussing with the patient and for verbal consent, we attempted with 2% Xylocaine jelly (Urojet). Using aseptic technique the penis and urethral meatus were prepped with Betadine. Urojet was used to inject lidocaine jelly. After adequate time period, a 16 Malawian coud tip catheter was passed easily up to the bladder neck. Resistance was noted at the bladder neck. With general, persistent pressure I was able to eventually slide through the bladder neck. The catheter was hubbed out, and over 600 cc of clear urine was drained immediately. Catheter balloon was inflated with 10 mL of sterile water and catheter was secured to the right thigh. Patient tolerated procedure well. Plan: We will leave the Hernandez catheter drainage. Dr. Rafael Alonso will follow up with the patient next week. If discharged, I would recommend leaving the catheter until he follows up in clinic with Dr. Alonso. I discussed with he and his that he may need dilation or bladder neck incision in the future if scar tissue worsens. Specialty Discharge - Follow Up or Referrals Follow up with: Rafael Alonso MD [Physician] -
[2017-04-04] MEDS: PRAVASTATIN 40 MG TABLET PO SCH (20:43)
[2017-04-04] MEDS: CITALOPRAM 20 MG TABLET PO SCH (20:43)
[2017-04-05] MEDS: DEXTROSE 5% NACL 0.9% 1,000 ML IV SCH ×3 (01:49→23:44)
[2017-04-05 03:40] LABS: Basophils % 0.5 % (0.0-0.8); Eosinophils # 0.1 10*3/uL (0.0-0.87); Eosinophils % 1.5 % (0.00-10.9); Hematocrit 36.5 VOL% (42.0-52.0); Immature Granulocytes % 0.5 %; Immature Granulocytes Absolute 0.04 #; Lymphocytes # 1.5 10*3/uL (1.4-4.0); Lymphocytes % 16.9 % (21.2-54.2); Mean Corpuscular HGB Conc 35.6 GM/DL (32-36); Mean Corpuscular Hemoglobin 33 PG (27-34); Mean Corpuscular Volume 92.4 FL (87-102); Monocytes # 1.5 10*3/uL (0.11-0.8); Monocytes % 16.5 % (1.7-12.7); Neutrophils # 5.7 10*3/uL (1.4-7.4); Neutrophils % 64.1 % (38.7-73.9); Platelet Count 92 T/CUMM (130-400); Red Blood Count 3.95 MC/CUMM (3.8-5.5); White Blood Count 8.8 T/CUMM (4-12)
[2017-04-05 04:14] LABS: Osmolality,Calculated 281.7 MOS/KG (273-304); Potassium 3.6 MMOL/L (3.5-5.1)
[2017-04-05 05:02] LABS: Band Neutrophils 7 % (0-10); Eosinophils 1 % (0-10); Lymphocytes 17 % (20-55); Myelocytes 6 %; Segmented Neutrophils 68 % (50-85)
[2017-04-05 05:03] LABS: Platelet Estimate Decreased; Total Cells Counted 100
[2017-04-05] MEDS: LEVOTHYROXINE 50 MCG TABLET PO SCH (06:18)
--- NOTE | 2017-04-05 07:31 | Family Practice Progress Note ---
Family Practice - PN: Subj Interval history: Patient states he had a good night after he had his Hernandez catheter placed. He had 600 cc residual urine volume and Dr. Kaminski was kind enough to place a Hernandez in him. Patient states he is feeling some better today. He denies any nausea vomiting or abdominal pain. Exam (Progress Note) - Constitutional Vitals: Period Temp Pulse Resp BP Sys/[place] Pulse Ox Last 24 Hr 97.6 F-99.8 F 76-87 18-20 154-166/84-89 94-98 Exam: Objective a well-developed gentleman in no acute distress. He is able answer questions appropriately. States feels much better with catheter in place. Cardiovascular: Heart rate is regular there is no murmurs or gallops. Respiratory: Lungs clear to auscultation bilaterally. Abdomen: Abdomen soft and nontender to palpation. Neuro: Patient's sensorium is at his baseline. Results - Labs CBC & BMP: 04/05/17 03:13 04/05/17 03:13 Lab Results: I have reviewed the past 24 hour labs Assessment and Plan (1) UTI (urinary tract infection) Status: Acute Assessment and plan: 04/04/2017: We will continue present IV antibiotic therapy. Urine cultures are pending. 04/05/2017: We will continue present IV antibiotic therapy. He has gram- negative rods on his urine culture but ID and sensitivity is yet pending. He remains afebrile and his vital signs are stable. Current Visit: No Quality Measures - VTE Contraindication to Pharmacological VTE Prophylaxis: High Risk of Bleeding Specialty Discharge - Follow Up or Referrals Follow up with: Rafael Alonso MD [Physician] -
[2017-04-05] MEDS: INSULIN LISPRO 100 UNIT/ML SUBCUT SCH ×4 (09:16→20:52)
[2017-04-05] MEDS: MULTIVITAMIN (CENTRUM) TABLET PO SCH (09:16)
[2017-04-05] MEDS: INSULIN NPH/REGULAR 70/30 100 UNIT/ML SUBCUT SCH ×2 (09:16→16:25)
[2017-04-05] MEDS: ASPIRIN EC 325 MG TABLET PO SCH (09:17)
[2017-04-05] MEDS: PANTOPRAZOLE 40 MG TABLET PO SCH (09:17)
[2017-04-05] MEDS: MAGNESIUM OXIDE 400 MG TABLET PO SCH (09:17)
[2017-04-05] MEDS: DOCUSATE SODIUM 100 MG CAPSULE PO SCH ×2 (09:17→20:52)
[2017-04-05] MEDS: CITALOPRAM 20 MG TABLET PO SCH (20:52)
[2017-04-05] MEDS: PRAVASTATIN 40 MG TABLET PO SCH (20:52)
[2017-04-06] MEDS: DEXTROSE 5% NACL 0.9% 1,000 ML IV SCH (05:03)
[2017-04-06] MEDS: LEVOTHYROXINE 50 MCG TABLET PO SCH (06:12)
--- NOTE | 2017-04-06 08:00 | Family Practice Progress Note ---
Family Practice - PN: Subj Interval history: 04/06/17 -patient is comfortable and denies any new complaints. Urine culture positive for Klebsiella pneumoniae. Blood cultures are negative. Labs have remained stable. Patient had a Hernandez catheter placed yesterday and is still in place this a.m. Will defer removal of catheter to urologist. He is otherwise doing well. If we can get catheter out and patient urinating will begin discharge planning Exam (Progress Note) - Constitutional Vitals: Period Temp Pulse Resp BP Sys/Oron[place] Pulse Ox Last 24 Hr 97.4 F-98.3 F 70-98 14-20 140-177/77-90 94-97 Results - Labs CBC & BMP: 04/05/17 03:13 04/05/17 03:13 Assessment and Plan (1) urosepsis Status: Acute Assessment and plan: Patient admitted with probable urosepsis. 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
[2017-04-06] MEDS: SODIUM CHLOR 0.45% KCL 20 MEQ 20 MEQ/1,000 ML BAG IV SCH ×2 (08:25→20:58)
[2017-04-06] MEDS: MULTIVITAMIN (CENTRUM) TABLET PO SCH (08:26)
[2017-04-06] MEDS: DOCUSATE SODIUM 100 MG CAPSULE PO SCH ×2 (08:26→20:57)
[2017-04-06] MEDS: ASPIRIN EC 325 MG TABLET PO SCH (08:26)
[2017-04-06] MEDS: MAGNESIUM OXIDE 400 MG TABLET PO SCH (08:26)
[2017-04-06] MEDS: PANTOPRAZOLE 40 MG TABLET PO SCH (08:27)
[2017-04-06] MEDS: INSULIN LISPRO 100 UNIT/ML SUBCUT SCH ×4 (08:28→20:59)
[2017-04-06] MEDS: INSULIN NPH/REGULAR 70/30 100 UNIT/ML SUBCUT SCH ×2 (08:28→16:40)
--- NOTE | 2017-04-06 10:28 | Physician Query Form ---
CLICK EDIT DOCUMENT TO SELECT QUERY ANSWER --> OK --> SIGN PROVIDERS: Make your selection(s) from the choices in EACH section by typing an "x" and enter comments in the comment section. Please use your independent medical judgment in providing your response. This request does not imply that any particular answer is desired or expected. CLINICAL INDICATORS: (Providers should not edit this section) The medical record indicates that the patient was admitted with an UTI, "self catheterizes 3 times a day" and the patient was placed on antibiotics. Based on the above, could you clarify the appropriate diagnosis, if significant , that supports the above abnormalities and additional evaluation, monitoring, and/or treatment rendered: ( ) UTI due to self catheterizations (x ) UTI not due to self catheterizations ( ) Other, please specify: ( ) Clinically unable to determine COMMENTS: PLEASE ALSO DOCUMENT RESPONSE IN PROGRESS NOTES AND/OR DISCHARGE SUMMARY Use of terms such as suspected, likely, or probable (associated with a specific diagnosis that is being evaluated, monitored, or treated as if it exists) are acceptable and can be restated in the discharge summary if not ruled out. [facility]
--- NOTE | 2017-04-06 10:29 | Physician Query Form ---
CLICK EDIT DOCUMENT TO SELECT QUERY ANSWER --> OK --> SIGN Kusum Carlin RN, CCDS Certified Clinical Furniture Finisher Apprentice W) [phone] (f) [phone] [email or web address] PROVIDERS: Make your selection(s) from the choices in EACH section by typing an "x" and enter comments in the comment section. Please use your independent medical judgment in providing your response. This request does not imply that any particular answer is desired or expected. CLINICAL INDICATORS: (Providers should not edit this section) The medical record indicates that the patient was admitted with UTI, sepsis ( per ER impression), Urosepsis is mentioned during the stay, normal WBC, lactic acid 2.1, temp 101.6# and the patient is on antibiotics. As the attending MD can you please clarify if the patient was treated for ? The term urosepsis requires documentation of the appropriate condition - please clarify the appropriate diagnosis: ( x) Urinary tract infection ( ) Pyelonephritis ( ) Cystitis ( ) Sepsis due to indwelling arroyo catheter ( ) Sepsis due to urinary source ( ) Urine contaminated by bacteria or other toxic material but without other findings ( ) Other, please specify: ( ) Clinically unable to Determine COMMENTS: PLEASE ALSO DOCUMENT RESPONSE IN PROGRESS NOTES AND/OR DISCHARGE SUMMARY Use of terms such as suspected, likely, or probable (associated with a specific diagnosis that is being evaluated, monitored, or treated as if it exists) are acceptable and can be restated in the discharge summary if not ruled out. [facility]
--- NOTE | 2017-04-06 14:23 | Urology Progress Note ---
Urology - PN: Subj Interval history: Patient is now in the hospital. Has urinary tract infection. They are having trouble catheterizing him. Dr. West had actually come put a catheter in. He did not dilate him but a coud tip was difficult to get in. I recommend we cystoscope him. I will plan on doing that tomorrow under local anesthesia. Exam - Constitutional Vitals: Period Temp Pulse Resp BP Sys/[place]ron[place] Pulse Ox Last 24 Hr 97.8 F-98.5 F 70-98 14-20 142-177/72-90 94-97 Results - Labs CBC & BMP: 04/05/17 03:13 04/05/17 03:13 Specialty Discharge - Follow Up or Referrals Follow up with: Rafael Alonso MD [Physician] -
[2017-04-06] MEDS: CITALOPRAM 20 MG TABLET PO SCH (20:57)
[2017-04-06] MEDS: PRAVASTATIN 40 MG TABLET PO SCH (20:57)
[2017-04-07] MEDS: LEVOTHYROXINE 50 MCG TABLET PO SCH (07:09)
[2017-04-07 07:17] LABS: Basophils % 0.4 % (0.0-0.8); Eosinophils # 0.4 10*3/uL (0.0-0.87); Eosinophils % 5.5 % (0.00-10.9); Hematocrit 37.5 VOL% (42.0-52.0); Hemoglobin 13.1 GM/DL (14.0-18.0); Immature Granulocytes % 0.8 %; Immature Granulocytes Absolute 0.06 #; Lymphocytes # 2.1 10*3/uL (1.4-4.0); Lymphocytes % 26.5 % (21.2-54.2); Mean Corpuscular HGB Conc 34.9 GM/DL (32-36); Mean Corpuscular Hemoglobin 33 PG (27-34); Mean Corpuscular Volume 94.7 FL (87-102); Mean Platelet Volume 10.4 FL (9.6-12.0); Monocytes # 0.9 10*3/uL (0.11-0.8); Monocytes % 11.6 % (1.7-12.7); Neutrophils # 4.3 10*3/uL (1.4-7.4); Neutrophils % 55.2 % (38.7-73.9); Platelet Count 103 T/CUMM (130-400); Red Blood Count 3.96 MC/CUMM (3.8-5.5); Red Cell Distribution Width 12.1 % (9.3-17.3); White Blood Count 7.8 T/CUMM (4-12)
[2017-04-07] MEDS: INSULIN LISPRO 100 UNIT/ML SUBCUT SCH ×4 (07:28→21:33)
[2017-04-07 07:42] LABS: Calcium 7.8 MG/DL (8.5-10.1); Osmolality,Calculated 284.8 MOS/KG (273-304); Potassium 3.8 MMOL/L (3.5-5.1)
[2017-04-07] MEDS: INSULIN NPH/REGULAR 70/30 100 UNIT/ML SUBCUT SCH ×2 (07:46→17:02)
--- NOTE | 2017-04-07 08:06 | Family Practice Progress Note ---
Family Practice - PN: Subj Interval history: 04/06/17 -patient is comfortable and denies any new complaints. Urine culture positive for Klebsiella pneumoniae. Blood cultures are negative. Labs have remained stable. Patient had a Hernandez catheter placed yesterday and is still in place this a.m. Will defer removal of catheter to urologist. He is otherwise doing well. If we can get catheter out and patient urinating will begin discharge planning 04/07/17 -patient states she generally feels good this a.m. He is scheduled for cystoscopic examination to evaluate his urinary retention. Blood cultures remain negative urine culture positive for Klebsiella as previously stated. I have switched him to IV Levaquin which has a greater sensitivity. Will also be able to convert to oral Levaquin on discharge. Depending on results of cystoscope hopefully can begin discharge planning soon Exam (Progress Note) - Constitutional Vitals: Period Temp Pulse Resp BP Sys/Oron[place] Pulse Ox Last 24 Hr 97.2 F-98.5 F 72-83 16-22 139-154/72-91 95-96 Results - Labs CBC & BMP: 04/07/17 04:53 04/07/17 04:53 Assessment and Plan (1) urosepsis Status: Acute Assessment and plan: Patient admitted with probable urosepsis. 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
[2017-04-07] MEDS ORDERED: LIDOCAINE 2% TOP JELLY 20 ML VIAL INTRAURETH ONE (08:30)
[2017-04-07] MEDS: ASPIRIN EC 325 MG TABLET PO SCH (09:59)
[2017-04-07] MEDS: MULTIVITAMIN (CENTRUM) TABLET PO SCH (09:59)
[2017-04-07] MEDS: DOCUSATE SODIUM 100 MG CAPSULE PO SCH ×2 (09:59→21:33)
[2017-04-07] MEDS: LEVOFLOXACIN INJ 500 MG in PREMIX 1 EACH IV SCH (10:00)
[2017-04-07] MEDS: PANTOPRAZOLE 40 MG TABLET PO SCH (10:00)
[2017-04-07] MEDS: MAGNESIUM OXIDE 400 MG TABLET PO SCH (10:00)
--- NOTE | 2017-04-07 10:08 | Operative Note ---
Date of procedure: 04/07/17 Pre-op diagnosis: Neurogenic bladder with UTI Post-op diagnosis: other (Mild bladder neck contracture) Procedure: 8-year-old gentleman who has a neurogenic bladder is on intermittent cath. His has been having trouble catheterizing him and he got sick and is in the hospital. Urologist on-call had to place a Hernandez but he did not dilate him in a catheter went in with some resistance. He is got Klebsiella in his urine is sensitive to Levaquin. Will now cystoscope him. Patient brought to endoscopy prepared and draped in usual sterile manner. 2% Xylocaine jelly is placed in urethra and bladder for anesthesia. Flexible 16 Greek cystourethroscope passed under direct vision. Urethra is normal. Prostate shows previous resection. There is a mild bladder neck contracture but 16 Greek scope went through it easily. I suspect a 20 or 22 Greek catheter could go through this can fracture. The bladder shows no lesions foreign bodies. I do not think the contracture is significant enough to warrant incision. The bladder is drained cystoscope removed based on procedure well was sent to his room in good condition. Anesthesia: local Surgeon / Physician: Rafael Alonso Estimated blood loss: none Specimens: none sent Condition: stable Disposition: floor Results - Labs CBC & BMP: 04/07/17 04:53 04/07/17 04:53 Discharge Plan - Discharge Medications No Action Multivit-Min/FA/Lycopen/Lutein [Centrum Silver Tablet] 1 each PO DAILY Insulin NPH/Regular 70/30 [HumuLIN 70/30] 85 unit SUBCUT AC BREAKFAST Pravastatin [Pravachol] 40 mg PO BEDTIME Insulin NPH/Regular 70/30 [HumuLIN 70/30] 61 units SUBCUT BEDTIME Levothyroxine Sodium 1 tablet PO DAILY Magnesium Oxide 1 tablet PO DAILY Aspirin [Ecotrin] 325 mg PO DAILY Citalopram Hydrobromide [Celexa] 20 mg PO BEDTIME - Follow Up or Referral Follow Up: Rafael Alonso MD [Physician] - - Forms/Instructions
[2017-04-07] MEDS: SODIUM CHLOR 0.45% KCL 20 MEQ 20 MEQ/1,000 ML BAG IV SCH ×2 (17:01→21:32)
[2017-04-07] MEDS: PRAVASTATIN 40 MG TABLET PO SCH (21:33)
[2017-04-07] MEDS: CITALOPRAM 20 MG TABLET PO SCH (21:33)
[2017-04-08] MEDS: LEVOTHYROXINE 50 MCG TABLET PO SCH (06:34)
--- NOTE | 2017-04-08 08:07 | Discharge Summary ---
Hospital Course - Hospital Course Hospital Course: This is a 71-year-old white male who self catheterizes 3 times a day who presents with fever and teeth chattering chills associated with nausea and vomiting. The family member says that the last time he had a similar presentation the cause was a urinary tract infection with spread to the bloodstream. Patient is generally been doing well prior to admission. He denies any areas of skin breakdown at present. Reviewing her lab studies his urine would be consistent with a urinary tract infection. After cultures were obtained and patient was started on empiric antibiotics. Will admit for further evaluation therapy HOSPITAL COURSE -patient was admitted hospital lab and x-ray studies obtained. After appropriate blood and urine cultures were obtained he was started on empiric antibiotics. Initially had difficulty cathing patient. He is on home catheterizations of the urinary bladder due to a neurogenic bladder. He was seen in consultation by urology who was able to place a cath with some difficulty. He was initially felt to have a possible urosepsis but he remained afebrile with normal white blood cell counts. His blood cultures remained normal. His urine culture was positive for Klebsiella pneumoniae. His antibiotics were appropriate. Patient subsequently required cystoscopic examination and dilatation by urology. He is much improved at time of discharge. He is being catheterized with no difficulty and is feeling much better overall. Tolerating diet activity and medications. Will discharge to home care and plan to follow in the office in 10 days or sooner if needed. Will have patient call or come to the emergency room condition worsening problems develop Diagnosis - Discharge Diagnosis (1) UTI (urinary tract infection) Status: Acute (2) Neurogenic bladder with self-cath. Status: Acute (3) Paroxysmal atrial fibrillation Status: Chronic (4) type 2 diabetes mellitus Status: Chronic (5) previous amputation multiple digits Status: Chronic (6) blindness left eye Status: Chronic (7) hyperlipidemia Status: Chronic Specialty Discharge - Follow Up or Referrals Follow up with: Rafael Alonso MD [Physician] - Discharge Plan - Discharge Data Disposition: Disch To Home/Self Care Condition at Discharge: Stable Discharge Diet: diabetic diet Activity: resume usual activities as tolerated Weight Bearing at Discharge: weight bear as tolerated Contact your physician if you experience:: fever over 101, Difficulty voiding, Nausea/Vomiting - Discharge Medications New RX: Levofloxacin Tab [Levaquin Tab] 500 mg PO DAILY #10 tablet Continue RX: Multivit-Min/FA/Lycopen/Lutein [Centrum Silver Tablet] 1 each PO DAILY RX: Insulin NPH/Regular 70/30 [HumuLIN 70/30] 85 unit SUBCUT AC BREAKFAST RX: Pravastatin [Pravachol] 40 mg PO BEDTIME RX: Insulin NPH/Regular 70/30 [HumuLIN 70/30] 61 units SUBCUT BEDTIME RX: Levothyroxine Sodium 1 tablet PO DAILY RX: Magnesium Oxide 1 tablet PO DAILY RX: Aspirin [Ecotrin] 325 mg PO DAILY RX: Citalopram Hydrobromide [Celexa] 20 mg PO BEDTIME - Follow Up or Referral Follow Up: Rafael Alonso MD [Physician] - Clement Degroot DO [Primary Care Provider] - (Follow-up in 10 days) - Forms/Instructions Exam - Constitutional Vitals: Period Temp Pulse Resp BP Sys/[place] Pulse Ox Last 24 Hr 97.4 F-98.6 F 67-84 18-21 132-158/70-95 94-98 General appearance: no acute distress - Head Head exam: Present: normal inspection - Eye Pupils: Present: HUSSAIN - ENT ENT exam: Present: normal exam - Neck Neck exam: Present: normal inspection. Absent: lymphadenopathy - Respiratory Respiratory exam: Present: clear to auscultation bilaterally - Cardiovascular Cardiovascular exam: Present: irregular rhythm - GI/Abdominal GI/Abdominal exam: Present: normal bowel sounds, soft - Extremities Exam Extremities exam: Present: normal inspection - Back Exam Back exam: Present: normal inspection - Neurological Exam Neurological exam: Present: alert, oriented X3, other (Patient has a neurogenic bladder) - Psychiatric Psychiatric exam: Present: normal affect - Skin Skin exam: Present: normal color Discharge Results Labs on day of discharge: Labs from last 24 hours 04/08/17 04/07/17 04/07/17 07:27 20:18 17:08 POC Glucose 99 180 H 208 H 04/07/17 04/07/17 16:11 11:30 POC Glucose 239 H 122 H DS: Provider Date of admission: 04/03/17 04:18 Primary care physician: Clement Degroot DO Attending physician on admission: Clement Degroot DO Consults: 04/03/17 04:19 Consult to Case Mgmt/Social Srvs [CONS] Routine Reason for Case Mgmt/Social Srvs: Discharge Planning 09/30/17 16:15 Consult to Physician [CONS] Routine Comment: Consulting Provider: Rafael Alonso When should Consulting Provider be notified: Now Person Notified: dr. matson Date Notified: 04/04/17 Time Notified: 16:20 Consult Notification Comment: I SPOKE TO MEAD ON THU. Discharging clinician: Clement Degroot,
[2017-04-08 08:14] VITALS: BP 140/93
[2017-04-08] MEDS ORDERED: LEVOFLOXACIN 500 MG TABLET PO SCH (09:00)
[2017-04-08] MEDS: LEVOFLOXACIN INJ 500 MG in PREMIX 1 EACH IV SCH (09:09)
[2017-04-08] MEDS: INSULIN NPH/REGULAR 70/30 100 UNIT/ML SUBCUT SCH (09:11)
[2017-04-08] MEDS: INSULIN LISPRO 100 UNIT/ML SUBCUT SCH (09:12)
[2017-04-08] MEDS: PANTOPRAZOLE 40 MG TABLET PO SCH (09:13)
[2017-04-08] MEDS: ASPIRIN EC 325 MG TABLET PO SCH (09:13)
[2017-04-08] MEDS: MAGNESIUM OXIDE 400 MG TABLET PO SCH (09:13)
[2017-04-08] MEDS: MULTIVITAMIN (CENTRUM) TABLET PO SCH (09:13)
[2017-04-08] MEDS: DOCUSATE SODIUM 100 MG CAPSULE PO SCH (09:13)
--- NOTE | 2017-04-08 20:47 | Order Completion Report ---
See report scanned to EMR
== END 2017-04-08 10:55 | disposition home or self-care (01) | DRG 690 ==
LOC: EDBD → EDUNIT# → N.ED 23:54 → N.EDINP 04-03 04:18 → N.2E 04-03 05:21
PROVIDERS: ADMIT Family Medicine; ATTEND Family Medicine

== ENCOUNTER 2017-07-28 15:39 | Inpatient (IN) ==
[2017-07-28] MEDS ORDERED: SODIUM CHLORIDE 0.9% 1,000 ML IV STA ×2 (16:13→18:23)
[2017-07-28] MEDS ORDERED: LEVOFLOXACIN INJ 750 MG in PREMIX 1 EACH IV STA (16:22)
[2017-07-28 16:43] LABS: Basophils % 0.2 % (0.0-0.8); Eosinophils # 0.1 10*3/uL (0.0-0.87); Eosinophils % 1.4 % (0.00-10.9); Hematocrit 43.2 VOL% (42.0-52.0); Hemoglobin 15.4 GM/DL (14.0-18.0); Immature Granulocytes % 0.7 %; Immature Granulocytes Absolute 0.03 #; Lymphocytes # 0.4 10*3/uL (1.4-4.0); Lymphocytes % 8.5 % (21.2-54.2); Mean Corpuscular HGB Conc 35.6 GM/DL (32-36); Mean Corpuscular Hemoglobin 33 PG (27-34); Mean Corpuscular Volume 91.3 FL (87-102); Neutrophils # 3.7 10*3/uL (1.4-7.4); Neutrophils % 88.2 % (38.7-73.9); Platelet Count 83 T/CUMM (130-400); Red Blood Count 4.73 MC/CUMM (3.8-5.5); Red Cell Distribution Width 12.4 % (9.3-17.3); White Blood Count 4.1 T/CUMM (4-12)
[2017-07-28 17:01] LABS: INR 1.1; PT Patient Result 11.5 SECS
[2017-07-28 17:09] LABS: Lactic Acid 2.9 MMOL/L (0.4-2.0)
[2017-07-28 17:10] LABS: Alanine Aminotransferase 57 U/L (16-61); Albumin 3.8 G/DL (3.4-5.0); Alkaline Phosphatase 72 U/L (45-117); Aspartate Amino Transferase 59 U/L (0-37); Blood Urea Nitrogen 31 MG/DL (7-18); Calcium 8.7 MG/DL (8.5-10.1); Glucose 127 MG/DL (74-106); Osmolality,Calculated 278.1 MOS/KG (273-304); Potassium 3.6 MMOL/L (3.5-5.1); Sodium 135 MMOL/L (136-145)
[2017-07-28 17:14] LABS: T4 (Thyroxine) 8.5 UG/DL (4.7-13.3)
[2017-07-28 17:17] LABS: Apearance,Urine Slightly Hazy (Clear); Bacteria,Urine Occasional /HPF (Few); Bilirubin,Urine Negative (Negative); Blood, Urine Moderate mg/dL (Negative); Glucose,Urine (UA) 50 mg/dL (Negative); Ketones,Urine Negative (Negative); Mucus,Urine Occasional /LPF (Occasional); Nitrite,Urine Negative (Negative); Protein,Urine 30 MG/DL; RBC,Urine 12 /HPF (0-4); Squamous Epithelial Cell,Urine Occasional /HPF (0-10); Urine Color Yellow (Yellow); Urine Specific Gravity 1.014 (1.001-1.035); Urine Urobilinogen < 2.0 EU/DL (0.2-1.0); WBC,Urine 16 /HPF (0-6)
[2017-07-28] MEDS ORDERED: LEVOFLOXACIN INJ 150 ML IV ONE (17:37)
[2017-07-28] MEDS ORDERED: SODIUM CHLORIDE 0.9% 2,750 ML IV STA (18:27)
[2017-07-28 18:28] LABS: Platelet Estimate Decreased
[2017-07-28] MEDS ORDERED: ONDANSETRON 4 MG/2 ML VIAL IV PRN (20:15)
[2017-07-28] MEDS ORDERED: DEXTROSE 50% 25 GM/50 ML VIAL IV PRN (20:15)
[2017-07-28] MEDS ORDERED: GLUCAGON 1 MG VIAL IM PRN (20:15)
[2017-07-28] MEDS ORDERED: DOCUSATE SODIUM 100 MG CAPSULE ONE (21:23)
[2017-07-28] MEDS: DOCUSATE SODIUM 100 MG CAPSULE PO SCH (21:25)
[2017-07-28] MEDS: SODIUM CHLORIDE 0.45% 1,000 ML IV SCH (23:40)
[2017-07-28] MEDS: INSULIN REGULAR 100 UNIT/ML SUBCUT SCH (23:42)
[2017-07-29] MEDS ORDERED: METOPROLOL TARTRATE 5 MG/5 ML VIAL IV ONE (04:11)
[2017-07-29] MEDS: INSULIN REGULAR 100 UNIT/ML SUBCUT SCH ×3 (06:06→17:44)
[2017-07-29 06:07] LABS: Basophils % 0.1 % (0.0-0.8); Hematocrit 41.9 VOL% (42.0-52.0); Hemoglobin 14.1 GM/DL (14.0-18.0); Immature Granulocytes % 0.8 %; Immature Granulocytes Absolute 0.09 #; Lymphocytes % 8.4 % (21.2-54.2); Mean Corpuscular HGB Conc 33.7 GM/DL (32-36); Mean Corpuscular Hemoglobin 33 PG (27-34); Mean Corpuscular Volume 97.4 FL (87-102); Mean Platelet Volume 10.8 FL (9.6-12.0); Monocytes # 0.2 10*3/uL (0.11-0.8); Monocytes % 1.8 % (1.7-12.7); Neutrophils # 10.6 10*3/uL (1.4-7.4); Neutrophils % 88.9 % (38.7-73.9); Red Cell Distribution Width 12.9 % (9.3-17.3); White Blood Count 11.9 T/CUMM (4-12)
[2017-07-29 06:13] LABS: Platelet Count 77 T/CUMM (130-400)
[2017-07-29 06:34] LABS: Osmolality,Calculated 281.8 MOS/KG (273-304); Potassium 4.5 MMOL/L (3.5-5.1)
[2017-07-29 08:11] LABS: Band Neutrophils 18 % (0-10); Lymphocytes 10 % (20-55); Platelet Estimate Decreased; Segmented Neutrophils 69 % (50-85); Total Cells Counted 100
[2017-07-29 08:12] LABS: Hypochromasia 1+; Ovalocytes Slight
[2017-07-29] MEDS ORDERED: MAGNESIUM SULF RIDER 2 GM in PREMIX 1 EACH IV ONE (08:13)
[2017-07-29] MEDS: MULTIVITAMIN (CENTRUM) TABLET PO SCH (08:26)
[2017-07-29] MEDS: MAGNESIUM OXIDE 400 MG TABLET PO SCH ×2 (08:26→21:50)
[2017-07-29] MEDS: SODIUM CHLORIDE 0.45% 1,000 ML IV SCH ×3 (08:27→21:49)
[2017-07-29] MEDS: PANTOPRAZOLE 40 MG TABLET PO SCH (08:27)
[2017-07-29] MEDS: PRAVASTATIN 40 MG TABLET PO SCH (08:27)
[2017-07-29] MEDS: DOCUSATE SODIUM 100 MG CAPSULE PO SCH ×2 (08:27→21:50)
[2017-07-29] MEDS: ASPIRIN EC 325 MG TABLET PO SCH (08:27)
[2017-07-29] MEDS: LEVOTHYROXINE 50 MCG TABLET PO SCH (08:27)
[2017-07-29] MEDS ORDERED: CITALOPRAM 20 MG TABLET PO SCH (09:00)
[2017-07-29] MEDS ORDERED: ZINC OXIDE PASTE 113 GM TUBE TOP PRN (13:09)
[2017-07-29] MEDS ORDERED: LEVOFLOXACIN INJ 750 MG in PREMIX 1 EACH IV SCH (18:00)
[2017-07-29] MEDS: ACETAMINOPHEN 325 MG TABLET PO PRN (21:50)
[2017-07-30] MEDS: INSULIN REGULAR 100 UNIT/ML SUBCUT SCH ×4 (02:45→19:03)
[2017-07-30] MEDS ORDERED: DILTIAZEM 50 MG/10 ML VIAL IV ONE ×3 (04:55→08:47)
[2017-07-30] MEDS: ACETAMINOPHEN 325 MG TABLET PO PRN ×2 (05:37→21:48)
[2017-07-30] MEDS: SODIUM CHLORIDE 0.45% 1,000 ML IV SCH ×2 (05:58→15:58)
[2017-07-30 08:06] LABS: Basophils % 0.1 % (0.0-0.8); Hematocrit 38.5 VOL% (42.0-52.0); Hemoglobin 13.5 GM/DL (14.0-18.0); Immature Granulocytes % 6.1 %; Immature Granulocytes Absolute 0.45 #; Lymphocytes # 0.4 10*3/uL (1.4-4.0); Lymphocytes % 5.6 % (21.2-54.2); Mean Corpuscular HGB Conc 35.1 GM/DL (32-36); Mean Corpuscular Hemoglobin 33 PG (27-34); Mean Corpuscular Volume 94.1 FL (87-102); Mean Platelet Volume 10.9 FL (9.6-12.0); Monocytes # 0.2 10*3/uL (0.11-0.8); Monocytes % 2.3 % (1.7-12.7); Neutrophils # 6.3 10*3/uL (1.4-7.4); Neutrophils % 85.9 % (38.7-73.9); Red Blood Count 4.09 MC/CUMM (3.8-5.5)
[2017-07-30 08:10] LABS: White Blood Count 7.4 T/CUMM (4-12)
[2017-07-30 08:11] LABS: Platelet Count 38 T/CUMM (130-400)
[2017-07-30 08:27] LABS: Band Neutrophils 8 % (0-10); Giant Platelets Few; Hypochromasia 1+; Lymphocytes 3 % (20-55); Ovalocytes Slight; Platelet Estimate Decreased; Segmented Neutrophils 83 % (50-85); Total Cells Counted 100
[2017-07-30] MEDS: LEVOTHYROXINE 50 MCG TABLET PO SCH (09:14)
[2017-07-30] MEDS: DOCUSATE SODIUM 100 MG CAPSULE PO SCH ×2 (09:14→21:55)
[2017-07-30] MEDS: PANTOPRAZOLE 40 MG TABLET PO SCH (09:14)
[2017-07-30] MEDS: MAGNESIUM OXIDE 400 MG TABLET PO SCH ×2 (09:14→21:48)
[2017-07-30] MEDS: ENOXAPARIN 40 MG/0.4 ML SYRINGE SUBCUT SCH (09:14)
[2017-07-30] MEDS: ASPIRIN EC 325 MG TABLET PO SCH (09:14)
[2017-07-30] MEDS: MULTIVITAMIN (CENTRUM) TABLET PO SCH (09:14)
[2017-07-30] MEDS: PRAVASTATIN 40 MG TABLET PO SCH (09:14)
[2017-07-30] MEDS: DILTIAZEM INJ 100 MG in SODIUM CHLORIDE 0.9% 100 ML IV SCH (09:25)
[2017-07-30 09:31] LABS: Basophils % 0.3 % (0.0-0.8); Hematocrit 37.9 VOL% (42.0-52.0); Hemoglobin 13.4 GM/DL (14.0-18.0); Immature Granulocytes % 10.5 %; Immature Granulocytes Absolute 1.24 #; Lymphocytes # 0.9 10*3/uL (1.4-4.0); Lymphocytes % 7.3 % (21.2-54.2); Mean Corpuscular HGB Conc 35.4 GM/DL (32-36); Mean Corpuscular Hemoglobin 33 PG (27-34); Mean Corpuscular Volume 92.7 FL (87-102); Mean Platelet Volume 10.7 FL (9.6-12.0); Monocytes # 0.8 10*3/uL (0.11-0.8); Monocytes % 6.4 % (1.7-12.7); Neutrophils # 8.9 10*3/uL (1.4-7.4); Neutrophils % 75.5 % (38.7-73.9); Red Blood Count 4.09 MC/CUMM (3.8-5.5); Red Cell Distribution Width 13.1 % (9.3-17.3); White Blood Count 11.8 T/CUMM (4-12)
[2017-07-30 09:52] LABS: Platelet Count 39 T/CUMM (130-400)
[2017-07-30 10:38] LABS: Band Neutrophils 11 % (0-10); Hypochromasia 1+; Lymphocytes 7 % (20-55); Metamyelocytes 3 %; Microcytosis Slight; Myelocytes 1 %; Platelet Estimate Decreased; Segmented Neutrophils 70 % (50-85); Total Cells Counted 100
[2017-07-30] MEDS ORDERED: cefTRIAXone 1,000 MG in SYRINGE 1 EACH IV SCH (12:30)
[2017-07-30] MEDS: CITALOPRAM 40 MG TABLET PO SCH (21:48)
[2017-07-31] MEDS: SODIUM CHLORIDE 0.45% 1,000 ML IV SCH ×2 (01:58→14:01)
[2017-07-31] MEDS: INSULIN REGULAR 100 UNIT/ML SUBCUT SCH ×4 (03:39→17:55)
[2017-07-31 05:13] LABS: Basophils % 0.3 % (0.0-0.8); Hematocrit 35.8 VOL% (42.0-52.0); Hemoglobin 12.7 GM/DL (14.0-18.0); Immature Granulocytes % 0.5 %; Immature Granulocytes Absolute 0.06 #; Lymphocytes # 1.3 10*3/uL (1.4-4.0); Lymphocytes % 10.2 % (21.2-54.2); Mean Corpuscular HGB Conc 35.5 GM/DL (32-36); Mean Corpuscular Hemoglobin 33 PG (27-34); Mean Corpuscular Volume 91.6 FL (87-102); Mean Platelet Volume 11.2 FL (9.6-12.0); Monocytes # 1.2 10*3/uL (0.11-0.8); Monocytes % 9.1 % (1.7-12.7); Neutrophils # 10.5 10*3/uL (1.4-7.4); Neutrophils % 79.9 % (38.7-73.9); Platelet Count 53 T/CUMM (130-400); Red Blood Count 3.91 MC/CUMM (3.8-5.5); Red Cell Distribution Width 13.1 % (9.3-17.3); White Blood Count 13.2 T/CUMM (4-12)
[2017-07-31 05:37] LABS: Band Neutrophils 8 % (0-10); Lymphocytes 9 % (20-55); Segmented Neutrophils 78 % (50-85); Total Cells Counted 100
[2017-07-31 05:38] LABS: Microcytosis Slight; Platelet Estimate Decreased
[2017-07-31 05:56] LABS: Calcium 7.5 MG/DL (8.5-10.1); Osmolality,Calculated 280.4 MOS/KG (273-304); Potassium 3.8 MMOL/L (3.5-5.1)
[2017-07-31] MEDS: DOCUSATE SODIUM 100 MG CAPSULE PO SCH ×2 (08:25→22:10)
[2017-07-31] MEDS ORDERED: MEROPENEM 1,000 MG in SYRINGE 1 EACH IV SCH (08:30)
[2017-07-31] MEDS: ENOXAPARIN 40 MG/0.4 ML SYRINGE SUBCUT SCH (09:22)
[2017-07-31] MEDS: LEVOTHYROXINE 50 MCG TABLET PO SCH (09:23)
[2017-07-31] MEDS: DILTIAZEM CD 240 MG CAPSULE PO SCH (09:23)
[2017-07-31] MEDS: PRAVASTATIN 40 MG TABLET PO SCH (09:23)
[2017-07-31] MEDS: PANTOPRAZOLE 40 MG TABLET PO SCH (09:23)
[2017-07-31] MEDS: MAGNESIUM OXIDE 400 MG TABLET PO SCH ×2 (09:23→22:09)
[2017-07-31] MEDS: ASPIRIN EC 325 MG TABLET PO SCH (09:23)
[2017-07-31] MEDS: MULTIVITAMIN (CENTRUM) TABLET PO SCH (09:23)
[2017-07-31] MEDS: DILTIAZEM INJ 100 MG in SODIUM CHLORIDE 0.9% 100 ML IV SCH (10:19)
[2017-07-31] MEDS: cefTRIAXone 2,000 MG in SYRINGE 1 EACH IV SCH (14:01)
[2017-07-31] MEDS: CITALOPRAM 40 MG TABLET PO SCH (22:09)
[2017-08-01] MEDS: SODIUM CHLORIDE 0.45% 1,000 ML IV SCH ×3 (00:16→16:57)
[2017-08-01] MEDS: INSULIN REGULAR 100 UNIT/ML SUBCUT SCH ×4 (00:25→18:12)
[2017-08-01 04:47] LABS: Basophils % 0.3 % (0.0-0.8); Eosinophils # 0.1 10*3/uL (0.0-0.87); Eosinophils % 0.8 % (0.00-10.9); Hematocrit 37.2 VOL% (42.0-52.0); Hemoglobin 12.6 GM/DL (14.0-18.0); Immature Granulocytes Absolute 0.13 #; Lymphocytes # 1.3 10*3/uL (1.4-4.0); Mean Corpuscular HGB Conc 33.9 GM/DL (32-36); Mean Corpuscular Hemoglobin 32 PG (27-34); Mean Corpuscular Volume 93.9 FL (87-102); Monocytes # 1.4 10*3/uL (0.11-0.8); Monocytes % 10.7 % (1.7-12.7); Neutrophils # 10.1 10*3/uL (1.4-7.4); Neutrophils % 77.2 % (38.7-73.9); Red Blood Count 3.96 MC/CUMM (3.8-5.5); Red Cell Distribution Width 12.6 % (9.3-17.3)
[2017-08-01 04:51] LABS: Platelet Count 68 T/CUMM (130-400)
[2017-08-01 05:14] LABS: Calcium 7.5 MG/DL (8.5-10.1); Osmolality,Calculated 281.1 MOS/KG (273-304); Potassium 3.8 MMOL/L (3.5-5.1)
[2017-08-01 07:31] LABS: Lymphocytes 7 % (20-55); Metamyelocytes 1 %; Segmented Neutrophils 86 % (50-85)
[2017-08-01 07:32] LABS: Hypochromasia 1+; Platelet Estimate Decreased; Total Cells Counted 100
[2017-08-01] MEDS: PRAVASTATIN 40 MG TABLET PO SCH (08:47)
[2017-08-01] MEDS: PANTOPRAZOLE 40 MG TABLET PO SCH (08:47)
[2017-08-01] MEDS: LEVOTHYROXINE 50 MCG TABLET PO SCH (08:48)
[2017-08-01] MEDS: MULTIVITAMIN (CENTRUM) TABLET PO SCH (08:49)
[2017-08-01] MEDS: DILTIAZEM CD 240 MG CAPSULE PO SCH (08:49)
[2017-08-01] MEDS: MAGNESIUM OXIDE 400 MG TABLET PO SCH ×2 (08:50→22:27)
[2017-08-01] MEDS: DOCUSATE SODIUM 100 MG CAPSULE PO SCH ×2 (08:50→22:27)
[2017-08-01] MEDS: ENOXAPARIN 40 MG/0.4 ML SYRINGE SUBCUT SCH (08:51)
[2017-08-01] MEDS: ASPIRIN EC 325 MG TABLET PO SCH (08:51)
[2017-08-01] MEDS: DILTIAZEM INJ 100 MG in SODIUM CHLORIDE 0.9% 100 ML IV SCH (09:27)
[2017-08-01] MEDS: cefTRIAXone 2,000 MG in SYRINGE 1 EACH IV SCH (13:50)
[2017-08-01] MEDS: ACETAMINOPHEN 325 MG TABLET PO PRN (19:52)
[2017-08-01] MEDS: CITALOPRAM 40 MG TABLET PO SCH (22:27)
[2017-08-02] MEDS: INSULIN REGULAR 100 UNIT/ML SUBCUT SCH ×4 (03:07→17:21)
[2017-08-02] MEDS: SODIUM CHLORIDE 0.45% 1,000 ML IV SCH (03:07)
[2017-08-02 03:17] LABS: Basophils # 0.1 10*3/uL (0.0-0.2); Basophils % 0.5 % (0.0-0.8); Eosinophils # 0.3 10*3/uL (0.0-0.87); Eosinophils % 2.5 % (0.00-10.9); Hematocrit 36.9 VOL% (42.0-52.0); Hemoglobin 12.8 GM/DL (14.0-18.0); Immature Granulocytes % 2.4 %; Immature Granulocytes Absolute 0.24 #; Lymphocytes # 1.5 10*3/uL (1.4-4.0); Lymphocytes % 15.1 % (21.2-54.2); Mean Corpuscular HGB Conc 34.7 GM/DL (32-36); Mean Corpuscular Hemoglobin 32 PG (27-34); Mean Corpuscular Volume 92.9 FL (87-102); Mean Platelet Volume 11.3 FL (9.6-12.0); Monocytes # 1.4 10*3/uL (0.11-0.8); Neutrophils # 6.6 10*3/uL (1.4-7.4); Neutrophils % 65.5 % (38.7-73.9); Platelet Count 80 T/CUMM (130-400); Red Blood Count 3.97 MC/CUMM (3.8-5.5); Red Cell Distribution Width 12.9 % (9.3-17.3); White Blood Count 10.1 T/CUMM (4-12)
[2017-08-02 06:30] LABS: Calcium 7.9 MG/DL (8.5-10.1); Osmolality,Calculated 284.8 MOS/KG (273-304); Potassium 4.1 MMOL/L (3.5-5.1)
[2017-08-02] MEDS: DOCUSATE SODIUM 100 MG CAPSULE PO SCH ×2 (08:48→21:37)
[2017-08-02] MEDS: DILTIAZEM CD 240 MG CAPSULE PO SCH (08:48)
[2017-08-02] MEDS: MAGNESIUM OXIDE 400 MG TABLET PO SCH ×2 (08:48→21:37)
[2017-08-02] MEDS: ASPIRIN EC 325 MG TABLET PO SCH (08:48)
[2017-08-02] MEDS: PANTOPRAZOLE 40 MG TABLET PO SCH (08:48)
[2017-08-02] MEDS: MULTIVITAMIN (CENTRUM) TABLET PO SCH (08:48)
[2017-08-02] MEDS: PRAVASTATIN 40 MG TABLET PO SCH (08:48)
[2017-08-02] MEDS: LEVOTHYROXINE 50 MCG TABLET PO SCH (08:48)
[2017-08-02] MEDS: DILTIAZEM INJ 100 MG in SODIUM CHLORIDE 0.9% 100 ML IV SCH (08:49)
[2017-08-02] MEDS: ENOXAPARIN 40 MG/0.4 ML SYRINGE SUBCUT SCH (08:49)
[2017-08-02] MEDS ORDERED: BISACODYL 10 MG SUPP RECTAL PRN (09:25)
[2017-08-02 10:28] LABS: Calcium 7.3 MG/DL (8.5-10.1); Osmolality,Calculated 285.8 MOS/KG (273-304); Potassium 3.7 MMOL/L (3.5-5.1)
[2017-08-02] MEDS: cefTRIAXone 2,000 MG in SYRINGE 1 EACH IV SCH (13:00)
[2017-08-02] MEDS: CITALOPRAM 40 MG TABLET PO SCH (21:37)
[2017-08-03] MEDS: INSULIN REGULAR 100 UNIT/ML SUBCUT SCH ×4 (06:42→17:46)
[2017-08-03] MEDS ORDERED: BISACODYL 5 MG TABLET PO PRN (08:13)
[2017-08-03] MEDS ORDERED: IRBESARTAN 150 MG TABLET PO SCH (09:00)
[2017-08-03] MEDS: hydroCHLOROthiazide 12.5 MG CAPSULE PO SCH (09:39)
[2017-08-03] MEDS: ENOXAPARIN 40 MG/0.4 ML SYRINGE SUBCUT SCH (09:39)
[2017-08-03] MEDS: MULTIVITAMIN (CENTRUM) TABLET PO SCH (09:40)
[2017-08-03] MEDS: DOCUSATE SODIUM 100 MG CAPSULE PO SCH ×2 (09:40→21:23)
[2017-08-03] MEDS: DILTIAZEM CD 240 MG CAPSULE PO SCH (09:40)
[2017-08-03] MEDS: PRAVASTATIN 40 MG TABLET PO SCH (09:40)
[2017-08-03] MEDS: LEVOTHYROXINE 50 MCG TABLET PO SCH (09:41)
[2017-08-03] MEDS: PANTOPRAZOLE 40 MG TABLET PO SCH (09:41)
[2017-08-03] MEDS: ASPIRIN EC 325 MG TABLET PO SCH (09:42)
[2017-08-03] MEDS: MAGNESIUM OXIDE 400 MG TABLET PO SCH ×2 (09:43→21:23)
[2017-08-03] MEDS: cefTRIAXone 2,000 MG in SYRINGE 1 EACH IV SCH (12:05)
[2017-08-03] MEDS: CITALOPRAM 40 MG TABLET PO SCH (21:23)
[2017-08-03] MEDS: ACETAMINOPHEN 325 MG TABLET PO PRN (23:53)
[2017-08-04] MEDS: INSULIN REGULAR 100 UNIT/ML SUBCUT SCH ×4 (01:12→17:04)
[2017-08-04 05:26] LABS: Basophils % 0.3 % (0.0-0.8); Eosinophils # 0.4 10*3/uL (0.0-0.87); Eosinophils % 4.1 % (0.00-10.9); Hematocrit 35.4 VOL% (42.0-52.0); Hemoglobin 12.3 GM/DL (14.0-18.0); Immature Granulocytes Absolute 0.52 #; Lymphocytes # 1.5 10*3/uL (1.4-4.0); Lymphocytes % 14.2 % (21.2-54.2); Mean Corpuscular HGB Conc 34.7 GM/DL (32-36); Mean Corpuscular Hemoglobin 32 PG (27-34); Mean Corpuscular Volume 93.2 FL (87-102); Mean Platelet Volume 10.2 FL (9.6-12.0); Monocytes # 1.3 10*3/uL (0.11-0.8); Neutrophils # 6.7 10*3/uL (1.4-7.4); Neutrophils % 64.4 % (38.7-73.9); Platelet Count 135 T/CUMM (130-400); Red Cell Distribution Width 12.7 % (9.3-17.3); White Blood Count 10.5 T/CUMM (4-12)
[2017-08-04 05:48] LABS: Band Neutrophils 4 % (0-10); Eosinophils 8 % (0-10); Lymphocytes 12 % (20-55); Segmented Neutrophils 68 % (50-85); Total Cells Counted 100
[2017-08-04 05:49] LABS: Hypochromasia 1+; Microcytosis 1+; Platelet Estimate Adequate
[2017-08-04 05:57] LABS: Calcium 7.9 MG/DL (8.5-10.1); Osmolality,Calculated 286.7 MOS/KG (273-304); Potassium 3.9 MMOL/L (3.5-5.1)
[2017-08-04 06:20] LABS: Risk Ratio 7.38; VLDL CHOLESTEROL 40.6 MG/DL
[2017-08-04] MEDS: DILTIAZEM CD 240 MG CAPSULE PO SCH (08:39)
[2017-08-04] MEDS: ENOXAPARIN 40 MG/0.4 ML SYRINGE SUBCUT SCH (08:39)
[2017-08-04] MEDS: hydroCHLOROthiazide 12.5 MG CAPSULE PO SCH (08:39)
[2017-08-04] MEDS: IRBESARTAN 150 MG TABLET PO SCH (08:39)
[2017-08-04] MEDS: DOCUSATE SODIUM 100 MG CAPSULE PO SCH ×2 (08:40→20:36)
[2017-08-04] MEDS: PANTOPRAZOLE 40 MG TABLET PO SCH (08:40)
[2017-08-04] MEDS: PRAVASTATIN 40 MG TABLET PO SCH (08:40)
[2017-08-04] MEDS: MULTIVITAMIN (CENTRUM) TABLET PO SCH (08:40)
[2017-08-04] MEDS: MAGNESIUM OXIDE 400 MG TABLET PO SCH ×2 (08:40→20:36)
[2017-08-04] MEDS: LEVOTHYROXINE 50 MCG TABLET PO SCH (08:40)
[2017-08-04] MEDS: ASPIRIN EC 325 MG TABLET PO SCH (08:40)
[2017-08-04] MEDS: cefTRIAXone 2,000 MG in SYRINGE 1 EACH IV SCH (11:34)
[2017-08-04] MEDS: ACETAMINOPHEN 325 MG TABLET PO PRN (14:07)
[2017-08-04] MEDS: CITALOPRAM 40 MG TABLET PO SCH (20:36)
[2017-08-05] MEDS: INSULIN REGULAR 100 UNIT/ML SUBCUT SCH ×3 (01:55→12:17)
[2017-08-05 04:57] LABS: Basophils % 0.4 % (0.0-0.8); Eosinophils # 0.3 10*3/uL (0.0-0.87); Hematocrit 36.4 VOL% (42.0-52.0); Hemoglobin 12.2 GM/DL (14.0-18.0); Immature Granulocytes % 4.7 %; Immature Granulocytes Absolute 0.52 #; Lymphocytes # 1.4 10*3/uL (1.4-4.0); Mean Corpuscular HGB Conc 33.5 GM/DL (32-36); Mean Corpuscular Hemoglobin 32 PG (27-34); Mean Corpuscular Volume 95.5 FL (87-102); Mean Platelet Volume 9.8 FL (9.6-12.0); Monocytes # 1.1 10*3/uL (0.11-0.8); Monocytes % 9.5 % (1.7-12.7); Neutrophils # 7.7 10*3/uL (1.4-7.4); Neutrophils % 69.4 % (38.7-73.9); Platelet Count 160 T/CUMM (130-400); Red Blood Count 3.81 MC/CUMM (3.8-5.5); Red Cell Distribution Width 12.7 % (9.3-17.3); White Blood Count 11.1 T/CUMM (4-12)
[2017-08-05 05:28] LABS: Calcium 8.1 MG/DL (8.5-10.1); Osmolality,Calculated 284.8 MOS/KG (273-304); Potassium 4.2 MMOL/L (3.5-5.1); Potassium 4.4 MMOL/L (3.5-5.1)
[2017-08-05 05:33] LABS: Band Neutrophils 2 % (0-10); Eosinophils 3 % (0-10); Giant Platelets Few; Hypochromasia 1+; Lymphocytes 13 % (20-55); Microcytosis Slight; Platelet Estimate Normal; Segmented Neutrophils 73 % (50-85); Total Cells Counted 100
[2017-08-05] MEDS: ENOXAPARIN 40 MG/0.4 ML SYRINGE SUBCUT SCH (08:48)
[2017-08-05] MEDS: MAGNESIUM OXIDE 400 MG TABLET PO SCH (08:49)
[2017-08-05] MEDS: PRAVASTATIN 40 MG TABLET PO SCH (08:49)
[2017-08-05] MEDS: MULTIVITAMIN (CENTRUM) TABLET PO SCH (08:49)
[2017-08-05] MEDS: LEVOTHYROXINE 50 MCG TABLET PO SCH (08:49)
[2017-08-05] MEDS: ASPIRIN EC 325 MG TABLET PO SCH (08:49)
[2017-08-05] MEDS: IRBESARTAN 150 MG TABLET PO SCH (08:49)
[2017-08-05] MEDS: hydroCHLOROthiazide 12.5 MG CAPSULE PO SCH (08:49)
[2017-08-05] MEDS: DILTIAZEM CD 240 MG CAPSULE PO SCH (08:49)
[2017-08-05] MEDS: PANTOPRAZOLE 40 MG TABLET PO SCH (08:49)
[2017-08-05] MEDS: DOCUSATE SODIUM 100 MG CAPSULE PO SCH (08:51)
[2017-08-05 11:46] VITALS: BP 134/74
[2017-08-05] MEDS: cefTRIAXone 2,000 MG in SYRINGE 1 EACH IV SCH (12:18)
== END 2017-08-05 16:08 | disposition swing bed (61) | DRG 698 ==
LOC: EDUNIT# → EDBD → N.ED 15:39 → N.EDINP 18:29 → N.CC 20:46 → N.TELEN 07-31 16:22
PROVIDERS: ADMIT Family Medicine; ATTEND Family Medicine

== ENCOUNTER 2017-11-19 13:44 | Inpatient (IN) ==
[2017-11-19] MEDS ORDERED: ACETAMINOPHEN 325 MG TABLET PO PRN (16:17)
[2017-11-19] MEDS ORDERED: PROMETHAZINE 25 MG/1 ML VIAL IM PRN (16:17)
[2017-11-19] MEDS ORDERED: ONDANSETRON 4 MG/2 ML VIAL IV PRN (16:17)
[2017-11-19] MEDS ORDERED: HYDROmorphone 2 MG/1 ML VIAL IV PRN (16:17)
[2017-11-19] MEDS ORDERED: GLUCAGON 1 MG VIAL IM PRN (16:35)
[2017-11-19] MEDS ORDERED: DEXTROSE 50% 25 GM/50 ML VIAL IV PRN (16:35)
[2017-11-19 16:43] LABS: Basophils # 0.1 10*3/uL (0.0-0.2); Basophils % 0.3 % (0.0-0.8); Eosinophils # 0.1 10*3/uL (0.0-0.87); Eosinophils % 0.6 % (0.00-10.9); Hematocrit 34.9 VOL% (42.0-52.0); Immature Granulocytes % 1.5 %; Immature Granulocytes Absolute 0.26 #; Lymphocytes % 11.8 % (21.2-54.2); Mean Corpuscular HGB Conc 34.4 GM/DL (32-36); Mean Corpuscular Hemoglobin 33 PG (27-34); Mean Corpuscular Volume 95.1 FL (87-102); Monocytes # 1.8 10*3/uL (0.11-0.8); Monocytes % 10.6 % (1.7-12.7); Neutrophils % 75.2 % (38.7-73.9); Platelet Count 206 T/CUMM (130-400); Red Blood Count 3.67 MC/CUMM (3.8-5.5); Red Cell Distribution Width 12.2 % (9.3-17.3); White Blood Count 17.3 T/CUMM (4-12)
[2017-11-19] MEDS ORDERED: ERTAPENEM 1,000 MG VIAL IV SCH (17:00)
[2017-11-19] MEDS ORDERED: DAPTOmycin 500 MG VIAL IV SCH (17:00)
[2017-11-19 17:01] LABS: Calcium 8.8 MG/DL (8.5-10.1); Osmolality,Calculated 271.4 MOS/KG (273-304); Potassium 3.8 MMOL/L (3.5-5.1)
[2017-11-19] MEDS: INSULIN NPH/REGULAR 70/30 100 UNIT/ML SUBCUT SCH (18:26)
[2017-11-19] MEDS: LACTATED RINGERS 1,000 ML IV SCH (19:55)
[2017-11-19] MEDS: MAGNESIUM OXIDE 400 MG TABLET PO SCH (20:59)
[2017-11-19] MEDS: INSULIN LISPRO 100 UNIT/ML SUBCUT SCH (21:25)
[2017-11-20 02:24] LABS: Basophils # 0.1 10*3/uL (0.0-0.2); Basophils % 0.5 % (0.0-0.8); Eosinophils # 0.2 10*3/uL (0.0-0.87); Eosinophils % 1.1 % (0.00-10.9); Hematocrit 33.7 VOL% (42.0-52.0); Hemoglobin 11.5 GM/DL (14.0-18.0); Immature Granulocytes Absolute 0.14 #; Lymphocytes # 2.7 10*3/uL (1.4-4.0); Lymphocytes % 18.6 % (21.2-54.2); Mean Corpuscular HGB Conc 34.1 GM/DL (32-36); Mean Corpuscular Hemoglobin 32 PG (27-34); Mean Corpuscular Volume 93.9 FL (87-102); Mean Platelet Volume 9.5 FL (9.6-12.0); Monocytes # 1.5 10*3/uL (0.11-0.8); Monocytes % 10.8 % (1.7-12.7); Neutrophils # 9.7 10*3/uL (1.4-7.4); Platelet Count 213 T/CUMM (130-400); Red Blood Count 3.59 MC/CUMM (3.8-5.5); Red Cell Distribution Width 12.1 % (9.3-17.3); White Blood Count 14.2 T/CUMM (4-12)
[2017-11-20 02:51] LABS: Calcium 8.3 MG/DL (8.5-10.1); Osmolality,Calculated 277.1 MOS/KG (273-304); Potassium 3.9 MMOL/L (3.5-5.1)
[2017-11-20] MEDS: LEVOTHYROXINE 50 MCG TABLET PO SCH (05:38)
[2017-11-20] MEDS: LACTATED RINGERS 1,000 ML IV SCH ×3 (06:28→19:18)
[2017-11-20] MEDS ORDERED: PRAVASTATIN 40 MG TABLET PO SCH (09:00)
[2017-11-20] MEDS: DILTIAZEM CD 240 MG CAPSULE PO SCH (10:00)
[2017-11-20] MEDS: hydroCHLOROthiazide 12.5 MG CAPSULE PO SCH (10:00)
[2017-11-20] MEDS: INSULIN NPH/REGULAR 70/30 100 UNIT/ML SUBCUT SCH ×2 (11:07→17:08)
[2017-11-20] MEDS: INSULIN LISPRO 100 UNIT/ML SUBCUT SCH ×4 (11:07→23:14)
[2017-11-20] MEDS: CITALOPRAM 40 MG TABLET PO SCH (11:08)
[2017-11-20] MEDS: ASPIRIN EC 325 MG TABLET PO SCH (11:08)
[2017-11-20] MEDS: MULTIVITAMIN (CENTRUM) TABLET PO SCH (11:08)
[2017-11-20] MEDS: NITROFURANTOIN MACROCRYSTALS 50 MG CAPSULE PO SCH (11:08)
[2017-11-20] MEDS: MAGNESIUM OXIDE 400 MG TABLET PO SCH ×2 (11:11→22:20)
[2017-11-20] MEDS: KETOCONAZOLE 2% CREAM 30 GM TUBE TOP SCH (11:11)
[2017-11-20] MEDS: PANTOPRAZOLE 40 MG TABLET PO SCH (11:12)
[2017-11-20] MEDS: ERTAPENEM 1,000 MG in SODIUM CHLORIDE 0.9% 100 ML IV SCH (12:10)
[2017-11-20] MEDS ORDERED: MIDAZOLAM 2 MG/2 ML VIAL ONE (15:12)
[2017-11-20] MEDS ORDERED: DEXAMETHASONE 10 MG/1 ML VIAL ONE (15:12)
[2017-11-20] MEDS ORDERED: PROPOFOL 200 MG/20 ML VIAL IV ONE (15:12)
[2017-11-20] MEDS ORDERED: fentaNYL 100 MCG/2 ML VIAL ONE (15:12)
[2017-11-20] MEDS ORDERED: SEVOFLURANE 1 UNIT/15 MINUTE INH ONE (15:12)
[2017-11-20] MEDS ORDERED: KETOROLAC 30 MG/1 ML VIAL ONE (15:13)
[2017-11-20] MEDS ORDERED: ePHEDrine 50 MG/ML AMP ONE (15:13)
[2017-11-20] MEDS ORDERED: ONDANSETRON 4 MG/2 ML VIAL ONE (15:13)
[2017-11-20] MEDS: ZINC OXIDE PASTE 113 GM TUBE TOP SCH (23:15)
[2017-11-21] MEDS: LACTATED RINGERS 1,000 ML IV SCH ×3 (01:00→21:24)
[2017-11-21] MEDS: KETOCONAZOLE 2% CREAM 30 GM TUBE TOP SCH ×3 (02:00→21:25)
[2017-11-21 04:49] LABS: Basophils % 0.2 % (0.0-0.8); Hematocrit 34.8 VOL% (42.0-52.0); Hemoglobin 11.7 GM/DL (14.0-18.0); Immature Granulocytes % 1.4 %; Immature Granulocytes Absolute 0.19 #; Lymphocytes # 1.1 10*3/uL (1.4-4.0); Lymphocytes % 8.5 % (21.2-54.2); Mean Corpuscular HGB Conc 33.6 GM/DL (32-36); Mean Corpuscular Hemoglobin 32 PG (27-34); Mean Corpuscular Volume 95.3 FL (87-102); Mean Platelet Volume 9.7 FL (9.6-12.0); Monocytes # 0.7 10*3/uL (0.11-0.8); Monocytes % 5.2 % (1.7-12.7); Neutrophils # 11.4 10*3/uL (1.4-7.4); Neutrophils % 84.7 % (38.7-73.9); Platelet Count 216 T/CUMM (130-400); Red Blood Count 3.65 MC/CUMM (3.8-5.5); Red Cell Distribution Width 11.9 % (9.3-17.3); White Blood Count 13.5 T/CUMM (4-12)
[2017-11-21 05:32] LABS: Albumin 2.6 G/DL (3.4-5.0); Bilirubin,Total 0.9 MG/DL (0.2-1.0); Calcium 8.4 MG/DL (8.5-10.1); Osmolality,Calculated 283.2 MOS/KG (273-304); Total Protein 6.8 G/DL (6.4-8.3)
[2017-11-21 05:48] LABS: Free T4 (Free Thyroxine) 0.88 NG/DL (0.76-1.46); Thyroid Stimulating Hormone 0.456 uIU/ml (0.358-3.74)
[2017-11-21] MEDS: LEVOTHYROXINE 50 MCG TABLET PO SCH (06:03)
[2017-11-21] MEDS: INSULIN NPH/REGULAR 70/30 100 UNIT/ML SUBCUT SCH ×2 (09:57→17:46)
[2017-11-21] MEDS: INSULIN LISPRO 100 UNIT/ML SUBCUT SCH ×4 (10:14→21:24)
[2017-11-21] MEDS: NITROFURANTOIN MACROCRYSTALS 50 MG CAPSULE PO SCH (10:18)
[2017-11-21] MEDS: DILTIAZEM CD 240 MG CAPSULE PO SCH (10:18)
[2017-11-21] MEDS: PANTOPRAZOLE 40 MG TABLET PO SCH (10:18)
[2017-11-21] MEDS: hydroCHLOROthiazide 12.5 MG CAPSULE PO SCH (10:19)
[2017-11-21] MEDS: MULTIVITAMIN (CENTRUM) TABLET PO SCH (10:20)
[2017-11-21] MEDS: CITALOPRAM 40 MG TABLET PO SCH (10:20)
[2017-11-21] MEDS: ASPIRIN EC 325 MG TABLET PO SCH (10:20)
[2017-11-21] MEDS: MAGNESIUM OXIDE 400 MG TABLET PO SCH ×2 (10:20→21:24)
[2017-11-21] MEDS: ENOXAPARIN 40 MG/0.4 ML SYRINGE SUBCUT SCH (10:21)
[2017-11-21] MEDS: ERTAPENEM 1,000 MG in SODIUM CHLORIDE 0.9% 100 ML IV SCH (11:34)
[2017-11-21] MEDS: ZINC OXIDE PASTE 113 GM TUBE TOP SCH ×2 (12:00→20:30)
[2017-11-21 16:26] LABS: Apearance,Urine CLEAR (Clear); Bilirubin,Urine Negative (Negative); Blood, Urine Small mg/dL (Negative); Glucose,Urine (UA) >=500 mg/dL (Negative); Ketones,Urine Negative (Negative); Mucus,Urine Occasional /LPF (Occasional); Nitrite,Urine Negative (Negative); Protein,Urine Negative; RBC,Urine 2 /HPF (0-4); Squamous Epithelial Cell,Urine Occasional /HPF (0-10); Urine Color Straw (Yellow); Urine Specific Gravity 1.007 (1.001-1.035); Urine Urobilinogen < 2.0 EU/DL (0.2-1.0); WBC,Urine 5 /HPF (0-6)
[2017-11-22 02:27] LABS: Basophils % 0.3 % (0.0-0.8); Eosinophils % 0.3 % (0.00-10.9); Hematocrit 32.5 VOL% (42.0-52.0); Hemoglobin 11.3 GM/DL (14.0-18.0); Immature Granulocytes % 0.8 %; Lymphocytes % 15.3 % (21.2-54.2); Mean Corpuscular HGB Conc 34.8 GM/DL (32-36); Mean Corpuscular Hemoglobin 32 PG (27-34); Mean Corpuscular Volume 92.3 FL (87-102); Mean Platelet Volume 9.5 FL (9.6-12.0); Monocytes % 7.4 % (1.7-12.7); Neutrophils # 10.1 10*3/uL (1.4-7.4); Neutrophils % 75.9 % (38.7-73.9); Platelet Count 218 T/CUMM (130-400); Red Blood Count 3.52 MC/CUMM (3.8-5.5); Red Cell Distribution Width 11.9 % (9.3-17.3); White Blood Count 13.3 T/CUMM (4-12)
[2017-11-22] MEDS: LEVOTHYROXINE 50 MCG TABLET PO SCH (05:56)
[2017-11-22] MEDS: LACTATED RINGERS 1,000 ML IV SCH ×3 (06:55→18:57)
[2017-11-22] MEDS: ERTAPENEM 1,000 MG in SODIUM CHLORIDE 0.9% 100 ML IV SCH (08:15)
[2017-11-22] MEDS: INSULIN LISPRO 100 UNIT/ML SUBCUT SCH ×4 (08:17→20:44)
[2017-11-22] MEDS: INSULIN NPH/REGULAR 70/30 100 UNIT/ML SUBCUT SCH ×2 (08:18→16:57)
[2017-11-22] MEDS: ZINC OXIDE PASTE 113 GM TUBE TOP SCH ×2 (10:03→20:45)
[2017-11-22] MEDS: MULTIVITAMIN (CENTRUM) TABLET PO SCH (10:04)
[2017-11-22] MEDS: hydroCHLOROthiazide 12.5 MG CAPSULE PO SCH (10:04)
[2017-11-22] MEDS: DILTIAZEM CD 240 MG CAPSULE PO SCH (10:04)
[2017-11-22] MEDS: MAGNESIUM OXIDE 400 MG TABLET PO SCH ×2 (10:04→20:44)
[2017-11-22] MEDS: ASPIRIN EC 325 MG TABLET PO SCH (10:05)
[2017-11-22] MEDS: NITROFURANTOIN MACROCRYSTALS 50 MG CAPSULE PO SCH (10:05)
[2017-11-22] MEDS: PANTOPRAZOLE 40 MG TABLET PO SCH (10:05)
[2017-11-22] MEDS: CITALOPRAM 40 MG TABLET PO SCH (10:05)
[2017-11-22] MEDS: ENOXAPARIN 40 MG/0.4 ML SYRINGE SUBCUT SCH (10:07)
[2017-11-22] MEDS: KETOCONAZOLE 2% CREAM 30 GM TUBE TOP SCH ×2 (10:08→20:46)
[2017-11-22 13:48] LABS: Calcium 8.4 MG/DL (8.5-10.1); Osmolality,Calculated 280.2 MOS/KG (273-304); Potassium 4.6 MMOL/L (3.5-5.1)
[2017-11-23] MEDS: LACTATED RINGERS 1,000 ML IV SCH ×3 (02:23→18:14)
[2017-11-23 04:52] LABS: Basophils # 0.1 10*3/uL (0.0-0.2); Basophils % 0.5 % (0.0-0.8); Eosinophils # 0.2 10*3/uL (0.0-0.87); Eosinophils % 1.3 % (0.00-10.9); Hematocrit 34.5 VOL% (42.0-52.0); Hemoglobin 12.1 GM/DL (14.0-18.0); Immature Granulocytes % 0.9 %; Immature Granulocytes Absolute 0.12 #; Lymphocytes # 3.1 10*3/uL (1.4-4.0); Lymphocytes % 23.3 % (21.2-54.2); Mean Corpuscular HGB Conc 35.1 GM/DL (32-36); Mean Corpuscular Hemoglobin 33 PG (27-34); Mean Corpuscular Volume 92.7 FL (87-102); Mean Platelet Volume 9.3 FL (9.6-12.0); Monocytes # 1.2 10*3/uL (0.11-0.8); Monocytes % 9.2 % (1.7-12.7); Neutrophils # 8.5 10*3/uL (1.4-7.4); Neutrophils % 64.8 % (38.7-73.9); Platelet Count 244 T/CUMM (130-400); Red Blood Count 3.72 MC/CUMM (3.8-5.5); Red Cell Distribution Width 11.9 % (9.3-17.3); White Blood Count 13.1 T/CUMM (4-12)
[2017-11-23] MEDS: LEVOTHYROXINE 50 MCG TABLET PO SCH (06:11)
[2017-11-23] MEDS: PANTOPRAZOLE 40 MG TABLET PO SCH (09:06)
[2017-11-23] MEDS: MAGNESIUM OXIDE 400 MG TABLET PO SCH ×2 (09:06→21:35)
[2017-11-23] MEDS: ASPIRIN EC 325 MG TABLET PO SCH (09:06)
[2017-11-23] MEDS: hydroCHLOROthiazide 12.5 MG CAPSULE PO SCH (09:06)
[2017-11-23] MEDS: MULTIVITAMIN (CENTRUM) TABLET PO SCH (09:06)
[2017-11-23] MEDS: DILTIAZEM CD 240 MG CAPSULE PO SCH (09:06)
[2017-11-23] MEDS: NITROFURANTOIN MACROCRYSTALS 50 MG CAPSULE PO SCH (09:06)
[2017-11-23] MEDS: INSULIN NPH/REGULAR 70/30 100 UNIT/ML SUBCUT SCH ×2 (09:07→18:15)
[2017-11-23] MEDS: INSULIN LISPRO 100 UNIT/ML SUBCUT SCH ×4 (09:07→21:35)
[2017-11-23] MEDS: ERTAPENEM 1,000 MG in SODIUM CHLORIDE 0.9% 100 ML IV SCH (09:07)
[2017-11-23] MEDS: CITALOPRAM 40 MG TABLET PO SCH (09:07)
[2017-11-23] MEDS: ZINC OXIDE PASTE 113 GM TUBE TOP SCH ×2 (09:08→21:39)
[2017-11-23] MEDS: ENOXAPARIN 40 MG/0.4 ML SYRINGE SUBCUT SCH (09:08)
[2017-11-23] MEDS: KETOCONAZOLE 2% CREAM 30 GM TUBE TOP SCH ×2 (09:08→21:35)
[2017-11-24] MEDS: ZINC OXIDE PASTE 113 GM TUBE TOP SCH ×2 (01:06→09:36)
[2017-11-24] MEDS: LACTATED RINGERS 1,000 ML IV SCH ×3 (01:06→22:51)
[2017-11-24 06:32] LABS: Basophils # 0.1 10*3/uL (0.0-0.2); Basophils % 0.6 % (0.0-0.8); Eosinophils # 0.3 10*3/uL (0.0-0.87); Eosinophils % 1.8 % (0.00-10.9); Hematocrit 36.1 VOL% (42.0-52.0); Hemoglobin 12.5 GM/DL (14.0-18.0); Immature Granulocytes % 1.1 %; Immature Granulocytes Absolute 0.15 #; Lymphocytes # 2.7 10*3/uL (1.4-4.0); Lymphocytes % 18.8 % (21.2-54.2); Mean Corpuscular HGB Conc 34.6 GM/DL (32-36); Mean Corpuscular Hemoglobin 32 PG (27-34); Mean Corpuscular Volume 92.8 FL (87-102); Mean Platelet Volume 9.3 FL (9.6-12.0); Monocytes # 1.2 10*3/uL (0.11-0.8); Monocytes % 8.5 % (1.7-12.7); Neutrophils # 9.8 10*3/uL (1.4-7.4); Neutrophils % 69.2 % (38.7-73.9); Platelet Count 235 T/CUMM (130-400); Red Blood Count 3.89 MC/CUMM (3.8-5.5); White Blood Count 14.2 T/CUMM (4-12)
[2017-11-24 07:07] LABS: Calcium 9.1 MG/DL (8.5-10.1); Osmolality,Calculated 280.8 MOS/KG (273-304); Potassium 4.5 MMOL/L (3.5-5.1); Risk Ratio 5.19
[2017-11-24] MEDS: LEVOTHYROXINE 50 MCG TABLET PO SCH (07:47)
[2017-11-24] MEDS: ENOXAPARIN 40 MG/0.4 ML SYRINGE SUBCUT SCH (09:33)
[2017-11-24] MEDS: DILTIAZEM CD 240 MG CAPSULE PO SCH (09:33)
[2017-11-24] MEDS: CITALOPRAM 40 MG TABLET PO SCH (09:34)
[2017-11-24] MEDS: PANTOPRAZOLE 40 MG TABLET PO SCH (09:34)
[2017-11-24] MEDS: hydroCHLOROthiazide 12.5 MG CAPSULE PO SCH (09:34)
[2017-11-24] MEDS: MAGNESIUM OXIDE 400 MG TABLET PO SCH ×2 (09:34→21:03)
[2017-11-24] MEDS: MULTIVITAMIN (CENTRUM) TABLET PO SCH (09:34)
[2017-11-24] MEDS: NITROFURANTOIN MACROCRYSTALS 50 MG CAPSULE PO SCH (09:34)
[2017-11-24] MEDS: ASPIRIN EC 325 MG TABLET PO SCH (09:34)
[2017-11-24] MEDS: INSULIN LISPRO 100 UNIT/ML SUBCUT SCH ×4 (09:35→21:03)
[2017-11-24] MEDS: KETOCONAZOLE 2% CREAM 30 GM TUBE TOP SCH ×2 (09:36→21:04)
[2017-11-24] MEDS: INSULIN NPH/REGULAR 70/30 100 UNIT/ML SUBCUT SCH ×2 (09:43→18:47)
[2017-11-24] MEDS: ERTAPENEM 1,000 MG in SODIUM CHLORIDE 0.9% 100 ML IV SCH (10:23)
[2017-11-25] MEDS: ZINC OXIDE PASTE 113 GM TUBE TOP SCH ×3 (01:12→21:27)
[2017-11-25 04:41] LABS: Basophils # 0.1 10*3/uL (0.0-0.2); Basophils % 0.7 % (0.0-0.8); Eosinophils # 0.3 10*3/uL (0.0-0.87); Eosinophils % 2.1 % (0.00-10.9); Hematocrit 35.2 VOL% (42.0-52.0); Immature Granulocytes % 1.4 %; Immature Granulocytes Absolute 0.21 #; Lymphocytes # 2.9 10*3/uL (1.4-4.0); Lymphocytes % 19.8 % (21.2-54.2); Mean Corpuscular HGB Conc 34.1 GM/DL (32-36); Mean Corpuscular Hemoglobin 32 PG (27-34); Mean Corpuscular Volume 95.1 FL (87-102); Mean Platelet Volume 9.3 FL (9.6-12.0); Monocytes # 1.2 10*3/uL (0.11-0.8); Monocytes % 8.5 % (1.7-12.7); Neutrophils # 9.9 10*3/uL (1.4-7.4); Neutrophils % 67.5 % (38.7-73.9); Platelet Count 237 T/CUMM (130-400); White Blood Count 14.6 T/CUMM (4-12)
[2017-11-25 05:14] LABS: Calcium 8.5 MG/DL (8.5-10.1); Osmolality,Calculated 279.8 MOS/KG (273-304); Potassium 4.2 MMOL/L (3.5-5.1)
[2017-11-25] MEDS: LEVOTHYROXINE 50 MCG TABLET PO SCH (06:18)
[2017-11-25] MEDS: INSULIN LISPRO 100 UNIT/ML SUBCUT SCH ×4 (07:24→21:27)
[2017-11-25] MEDS: INSULIN NPH/REGULAR 70/30 100 UNIT/ML SUBCUT SCH ×2 (07:25→17:15)
[2017-11-25] MEDS: DILTIAZEM CD 240 MG CAPSULE PO SCH (08:15)
[2017-11-25] MEDS: ERTAPENEM 1,000 MG in SODIUM CHLORIDE 0.9% 100 ML IV SCH (09:04)
[2017-11-25] MEDS: LACTATED RINGERS 1,000 ML IV SCH ×2 (09:07→19:22)
[2017-11-25] MEDS: ASPIRIN EC 325 MG TABLET PO SCH (10:21)
[2017-11-25] MEDS: MULTIVITAMIN (CENTRUM) TABLET PO SCH (10:21)
[2017-11-25] MEDS: CITALOPRAM 40 MG TABLET PO SCH (10:21)
[2017-11-25] MEDS: NITROFURANTOIN MACROCRYSTALS 50 MG CAPSULE PO SCH (10:22)
[2017-11-25] MEDS: MAGNESIUM OXIDE 400 MG TABLET PO SCH ×2 (10:22→21:26)
[2017-11-25] MEDS: ENOXAPARIN 40 MG/0.4 ML SYRINGE SUBCUT SCH (10:22)
[2017-11-25] MEDS: hydroCHLOROthiazide 12.5 MG CAPSULE PO SCH (10:22)
[2017-11-25] MEDS: KETOCONAZOLE 2% CREAM 30 GM TUBE TOP SCH ×2 (10:23→21:25)
[2017-11-25] MEDS: PANTOPRAZOLE 40 MG TABLET PO SCH (10:23)
[2017-11-25] MEDS ORDERED: PROPOFOL 200 MG/20 ML VIAL IV ONE (15:49)
[2017-11-25] MEDS ORDERED: ONDANSETRON 4 MG/2 ML VIAL ONE (15:50)
[2017-11-25] MEDS ORDERED: LACTATED RINGERS 1,000 ML IV ONE (15:50)
[2017-11-25] MEDS ORDERED: PHENYLEPHRINE 10 MG/1 ML VIAL IV ONE (15:50)
[2017-11-25] MEDS ORDERED: fentaNYL 100 MCG/2 ML VIAL ONE (15:50)
[2017-11-25] MEDS ORDERED: SEVOFLURANE 1 UNIT/15 MINUTE INH ONE (15:50)
[2017-11-25] MEDS ORDERED: GLUCAGON 1 MG VIAL IM PRN (15:56)
[2017-11-25] MEDS ORDERED: DEXTROSE 50% 25 GM/50 ML VIAL IV PRN (15:56)
[2017-11-26] MEDS: LACTATED RINGERS 1,000 ML IV SCH ×2 (03:35→21:38)
[2017-11-26 04:42] LABS: Basophils % 0.3 % (0.0-0.8); Eosinophils # 0.2 10*3/uL (0.0-0.87); Eosinophils % 1.3 % (0.00-10.9); Hematocrit 32.7 VOL% (42.0-52.0); Hemoglobin 11.4 GM/DL (14.0-18.0); Immature Granulocytes % 0.7 %; Lymphocytes # 2.2 10*3/uL (1.4-4.0); Mean Corpuscular HGB Conc 34.9 GM/DL (32-36); Mean Corpuscular Hemoglobin 32 PG (27-34); Mean Corpuscular Volume 92.6 FL (87-102); Mean Platelet Volume 9.4 FL (9.6-12.0); Monocytes # 1.4 10*3/uL (0.11-0.8); Monocytes % 9.8 % (1.7-12.7); Neutrophils # 10.5 10*3/uL (1.4-7.4); Neutrophils % 72.9 % (38.7-73.9); Platelet Count 204 T/CUMM (130-400); Red Blood Count 3.53 MC/CUMM (3.8-5.5); White Blood Count 14.3 T/CUMM (4-12)
[2017-11-26 05:18] LABS: Albumin 2.3 G/DL (3.4-5.0); Bilirubin,Total 0.5 MG/DL (0.2-1.0); Calcium 7.9 MG/DL (8.5-10.1); Osmolality,Calculated 276.2 MOS/KG (273-304); Potassium 4.3 MMOL/L (3.5-5.1); Total Protein 6.4 G/DL (6.4-8.3)
[2017-11-26] MEDS: LEVOTHYROXINE 50 MCG TABLET PO SCH (06:36)
[2017-11-26] MEDS: CITALOPRAM 40 MG TABLET PO SCH (08:30)
[2017-11-26] MEDS: INSULIN NPH/REGULAR 70/30 100 UNIT/ML SUBCUT SCH ×2 (08:31→18:11)
[2017-11-26] MEDS: DILTIAZEM CD 240 MG CAPSULE PO SCH (08:31)
[2017-11-26] MEDS: ERTAPENEM 1,000 MG in SODIUM CHLORIDE 0.9% 100 ML IV SCH (08:31)
[2017-11-26] MEDS: MAGNESIUM OXIDE 400 MG TABLET PO SCH ×2 (08:31→21:43)
[2017-11-26] MEDS: MULTIVITAMIN (CENTRUM) TABLET PO SCH (08:31)
[2017-11-26] MEDS: ASPIRIN EC 325 MG TABLET PO SCH (08:31)
[2017-11-26] MEDS: hydroCHLOROthiazide 12.5 MG CAPSULE PO SCH (08:31)
[2017-11-26] MEDS: NITROFURANTOIN MACROCRYSTALS 50 MG CAPSULE PO SCH (08:31)
[2017-11-26] MEDS: PANTOPRAZOLE 40 MG TABLET PO SCH (08:31)
[2017-11-26] MEDS: INSULIN LISPRO 100 UNIT/ML SUBCUT SCH ×4 (08:32→21:38)
[2017-11-26] MEDS: KETOCONAZOLE 2% CREAM 30 GM TUBE TOP SCH ×2 (09:56→21:41)
[2017-11-26] MEDS: ZINC OXIDE PASTE 113 GM TUBE TOP SCH ×2 (09:56→21:39)
[2017-11-26] MEDS: ENOXAPARIN 40 MG/0.4 ML SYRINGE SUBCUT SCH (09:56)
[2017-11-26] MEDS: MORPHINE 4 MG/1 ML VIAL IV PRN (21:43)
[2017-11-27 05:43] LABS: Basophils # 0.1 10*3/uL (0.0-0.2); Basophils % 0.5 % (0.0-0.8); Eosinophils # 0.2 10*3/uL (0.0-0.87); Eosinophils % 2.3 % (0.00-10.9); Hematocrit 29.1 VOL% (42.0-52.0); Hemoglobin 9.8 GM/DL (14.0-18.0); Immature Granulocytes % 0.8 %; Immature Granulocytes Absolute 0.08 #; Lymphocytes # 2.1 10*3/uL (1.4-4.0); Lymphocytes % 20.8 % (21.2-54.2); Mean Corpuscular HGB Conc 33.7 GM/DL (32-36); Mean Corpuscular Hemoglobin 32 PG (27-34); Mean Corpuscular Volume 94.8 FL (87-102); Mean Platelet Volume 9.7 FL (9.6-12.0); Monocytes # 1.4 10*3/uL (0.11-0.8); Monocytes % 13.3 % (1.7-12.7); Neutrophils # 6.4 10*3/uL (1.4-7.4); Neutrophils % 62.3 % (38.7-73.9); Platelet Count 186 T/CUMM (130-400); Red Blood Count 3.07 MC/CUMM (3.8-5.5); Red Cell Distribution Width 12.2 % (9.3-17.3); White Blood Count 10.2 T/CUMM (4-12)
[2017-11-27] MEDS: MORPHINE 4 MG/1 ML VIAL IV PRN (06:01)
[2017-11-27] MEDS: LACTATED RINGERS 1,000 ML IV SCH ×2 (06:02→09:38)
[2017-11-27] MEDS: LEVOTHYROXINE 50 MCG TABLET PO SCH (06:05)
[2017-11-27] MEDS: ENOXAPARIN 40 MG/0.4 ML SYRINGE SUBCUT SCH (08:50)
[2017-11-27] MEDS: hydroCHLOROthiazide 12.5 MG CAPSULE PO SCH (08:50)
[2017-11-27] MEDS: ASPIRIN EC 325 MG TABLET PO SCH (08:50)
[2017-11-27] MEDS: PANTOPRAZOLE 40 MG TABLET PO SCH (08:50)
[2017-11-27] MEDS: DILTIAZEM CD 240 MG CAPSULE PO SCH (08:50)
[2017-11-27] MEDS: NITROFURANTOIN MACROCRYSTALS 50 MG CAPSULE PO SCH (08:50)
[2017-11-27] MEDS: MAGNESIUM OXIDE 400 MG TABLET PO SCH (08:50)
[2017-11-27] MEDS: CITALOPRAM 40 MG TABLET PO SCH (08:50)
[2017-11-27] MEDS: MULTIVITAMIN (CENTRUM) TABLET PO SCH (08:50)
[2017-11-27] MEDS: INSULIN NPH/REGULAR 70/30 100 UNIT/ML SUBCUT SCH (08:51)
[2017-11-27] MEDS: KETOCONAZOLE 2% CREAM 30 GM TUBE TOP SCH (08:51)
[2017-11-27] MEDS: ZINC OXIDE PASTE 113 GM TUBE TOP SCH (08:51)
[2017-11-27] MEDS: INSULIN LISPRO 100 UNIT/ML SUBCUT SCH ×2 (08:51→16:37)
[2017-11-27] MEDS: ERTAPENEM 1,000 MG in SODIUM CHLORIDE 0.9% 100 ML IV SCH (09:40)
[2017-11-27 11:32] VITALS: BP 100/70
== END 2017-11-27 16:20 | DRG 617 ==
LOC: N.3E 15:19
PROVIDERS: ADMIT Surgery; ATTEND Surgery

== ENCOUNTER 2018-03-03 12:36 | Inpatient (IN) ==
[2018-03-03] MEDS ORDERED: SODIUM CHLORIDE 0.9% 1,000 ML IV STA (14:46)
[2018-03-03] MEDS ORDERED: ONDANSETRON 4 MG/2 ML VIAL IV STA (14:46)
[2018-03-03] MEDS ORDERED: ONDANSETRON 4 MG/2 ML VIAL ONE (14:50)
[2018-03-03 14:55] LABS: Basophils % 0.2 % (0.0-0.8); Eosinophils # 0.3 10*3/uL (0.0-0.87); Eosinophils % 3.6 % (0.00-10.9); Hematocrit 42.6 VOL% (42.0-52.0); Hemoglobin 14.8 GM/DL (14.0-18.0); Immature Granulocytes % 0.5 %; Immature Granulocytes Absolute 0.04 #; Lymphocytes # 2.2 10*3/uL (1.4-4.0); Lymphocytes % 25.5 % (21.2-54.2); Mean Corpuscular HGB Conc 34.7 GM/DL (32-36); Mean Corpuscular Hemoglobin 32 PG (27-34); Mean Corpuscular Volume 92.2 FL (87-102); Mean Platelet Volume 9.6 FL (9.6-12.0); Monocytes % 11.8 % (1.7-12.7); Neutrophils # 4.9 10*3/uL (1.4-7.4); Neutrophils % 58.4 % (38.7-73.9); Platelet Count 157 T/CUMM (130-400); Red Blood Count 4.62 MC/CUMM (3.8-5.5); Red Cell Distribution Width 12.8 % (9.3-17.3); White Blood Count 8.4 T/CUMM (4-12)
[2018-03-03 15:33] LABS: Bilirubin,Total 0.6 MG/DL (0.2-1.0); Calcium 8.9 MG/DL (8.5-10.1); Lactic Acid 1.4 MMOL/L (0.4-2.0); Osmolality,Calculated 279.8 MOS/KG (273-304); Total Protein 7.4 G/DL (6.4-8.3)
[2018-03-03] MEDS ORDERED: ONDANSETRON 4 MG/2 ML VIAL IV PRN (15:54)
[2018-03-03] MEDS ORDERED: DEXTROSE 50% 25 GM/50 ML VIAL IV PRN (15:54)
[2018-03-03] MEDS ORDERED: ACETAMINOPHEN 325 MG TABLET PO PRN (15:54)
[2018-03-03] MEDS ORDERED: GLUCAGON 1 MG VIAL IM PRN (15:54)
[2018-03-03] MEDS ORDERED: PANTOPRAZOLE 40 MG TABLET PO ONE (17:14)
[2018-03-03] MEDS: PANTOPRAZOLE 40 MG TABLET PO SCH (17:16)
[2018-03-03] MEDS: SODIUM CHLORIDE 0.9% 1,000 ML IV SCH (17:17)
[2018-03-03] MEDS: DOCUSATE SODIUM 100 MG CAPSULE PO SCH (22:24)
[2018-03-03] MEDS: MAGNESIUM OXIDE 400 MG TABLET PO SCH (22:24)
[2018-03-03] MEDS: buPROPion SR 150 MG TABLET PO SCH (22:25)
[2018-03-03] MEDS: PRAVASTATIN 40 MG TABLET PO SCH (22:25)
[2018-03-03] MEDS: INSULIN LISPRO 100 UNIT/ML SUBCUT SCH (22:26)
[2018-03-04] MEDS: SODIUM CHLORIDE 0.9% 1,000 ML IV SCH ×4 (01:28→17:20)
[2018-03-04 04:05] LABS: Apearance,Urine CLEAR (Clear); Bacteria,Urine Occasional /HPF (Few); Bilirubin,Urine Negative (Negative); Blood, Urine Small mg/dL (Negative); Glucose,Urine (UA) Negative (Negative); Ketones,Urine Negative (Negative); Mucus,Urine Occasional /LPF (Occasional); Nitrite,Urine Negative (Negative); Protein,Urine Negative; RBC,Urine 8 /HPF (0-4); Squamous Epithelial Cell,Urine Occasional /HPF (0-10); Urine Color Yellow (Yellow); Urine Specific Gravity 1.015 (1.001-1.035); Urine Urobilinogen < 2.0 EU/DL (0.2-1.0); WBC,Urine 8 /HPF (0-6)
[2018-03-04] MEDS ORDERED: LEVOTHYROXINE 50 MCG TABLET PO SCH (06:00)
[2018-03-04 06:40] LABS: Basophils % 0.4 % (0.0-0.8); Eosinophils # 0.3 10*3/uL (0.0-0.87); Eosinophils % 3.7 % (0.00-10.9); Hematocrit 38.1 VOL% (42.0-52.0); Hemoglobin 13.1 GM/DL (14.0-18.0); Immature Granulocytes % 0.5 %; Immature Granulocytes Absolute 0.04 #; Lymphocytes # 2.3 10*3/uL (1.4-4.0); Lymphocytes % 26.9 % (21.2-54.2); Mean Corpuscular HGB Conc 34.4 GM/DL (32-36); Mean Corpuscular Hemoglobin 32 PG (27-34); Mean Corpuscular Volume 93.4 FL (87-102); Mean Platelet Volume 9.9 FL (9.6-12.0); Monocytes % 11.9 % (1.7-12.7); Neutrophils # 4.8 10*3/uL (1.4-7.4); Neutrophils % 56.6 % (38.7-73.9); Platelet Count 144 T/CUMM (130-400); Red Blood Count 4.08 MC/CUMM (3.8-5.5); Red Cell Distribution Width 12.9 % (9.3-17.3); White Blood Count 8.5 T/CUMM (4-12)
[2018-03-04 07:13] LABS: Calcium 8.2 MG/DL (8.5-10.1); Osmolality,Calculated 281.7 MOS/KG (273-304); Potassium 4.2 MMOL/L (3.5-5.1); Risk Ratio 4.27
[2018-03-04 07:20] LABS: Free T4 (Free Thyroxine) 1.09 NG/DL (0.76-1.46); Thyroid Stimulating Hormone 9.45 uIU/ml (0.358-3.74)
[2018-03-04] MEDS: INSULIN LISPRO 100 UNIT/ML SUBCUT SCH ×4 (07:30→21:08)
[2018-03-04] MEDS: hydroCHLOROthiazide 12.5 MG CAPSULE PO SCH (08:53)
[2018-03-04] MEDS: buPROPion SR 150 MG TABLET PO SCH ×2 (08:54→21:09)
[2018-03-04] MEDS: DILTIAZEM CD 240 MG CAPSULE PO SCH (08:54)
[2018-03-04] MEDS: NITROFURANTOIN MACROCRYSTALS 50 MG CAPSULE PO SCH (08:55)
[2018-03-04] MEDS: MAGNESIUM OXIDE 400 MG TABLET PO SCH ×2 (08:56→21:09)
[2018-03-04] MEDS: PANTOPRAZOLE 40 MG TABLET PO SCH (08:56)
[2018-03-04] MEDS: MULTIVITAMIN (CENTRUM) TABLET PO SCH (08:56)
[2018-03-04] MEDS: ASPIRIN EC 325 MG TABLET PO SCH (08:56)
[2018-03-04] MEDS: DOCUSATE SODIUM 100 MG CAPSULE PO SCH ×2 (08:58→21:08)
[2018-03-04] MEDS: INSULIN NPH/REGULAR 70/30 100 UNIT/ML SUBCUT SCH ×2 (08:58→17:20)
[2018-03-04] MEDS: ZINC OXIDE PASTE 113 GM TUBE TOP SCH ×2 (14:35→21:09)
[2018-03-04] MEDS: PRAVASTATIN 40 MG TABLET PO SCH (21:09)
[2018-03-05] MEDS: SODIUM CHLORIDE 0.9% 1,000 ML IV SCH ×4 (01:50→18:32)
[2018-03-05] MEDS: LEVOTHYROXINE 75 MCG TABLET PO SCH (05:55)
[2018-03-05 05:56] LABS: Basophils % 0.2 % (0.0-0.8); Eosinophils # 0.4 10*3/uL (0.0-0.87); Eosinophils % 3.9 % (0.00-10.9); Hematocrit 37.5 VOL% (42.0-52.0); Immature Granulocytes % 0.7 %; Immature Granulocytes Absolute 0.06 #; Lymphocytes % 22.3 % (21.2-54.2); Mean Corpuscular HGB Conc 34.7 GM/DL (32-36); Mean Corpuscular Hemoglobin 33 PG (27-34); Mean Corpuscular Volume 93.8 FL (87-102); Mean Platelet Volume 9.5 FL (9.6-12.0); Monocytes # 0.9 10*3/uL (0.11-0.8); Monocytes % 10.1 % (1.7-12.7); Neutrophils # 5.6 10*3/uL (1.4-7.4); Neutrophils % 62.8 % (38.7-73.9); Platelet Count 134 T/CUMM (130-400); Red Cell Distribution Width 12.5 % (9.3-17.3); White Blood Count 8.9 T/CUMM (4-12)
[2018-03-05 06:09] LABS: Calcium 7.9 MG/DL (8.5-10.1); Osmolality,Calculated 277.5 MOS/KG (273-304); Potassium 3.9 MMOL/L (3.5-5.1)
[2018-03-05] MEDS: INSULIN NPH/REGULAR 70/30 100 UNIT/ML SUBCUT SCH ×2 (07:27→19:34)
[2018-03-05] MEDS: INSULIN LISPRO 100 UNIT/ML SUBCUT SCH ×4 (07:27→21:31)
[2018-03-05] MEDS: ZINC OXIDE PASTE 113 GM TUBE TOP SCH ×2 (09:45→21:32)
[2018-03-05] MEDS: buPROPion SR 150 MG TABLET PO SCH ×2 (10:44→21:32)
[2018-03-05] MEDS: hydroCHLOROthiazide 12.5 MG CAPSULE PO SCH (10:45)
[2018-03-05] MEDS: NITROFURANTOIN MACROCRYSTALS 50 MG CAPSULE PO SCH (10:45)
[2018-03-05] MEDS: PANTOPRAZOLE 40 MG TABLET PO SCH (10:45)
[2018-03-05] MEDS: DILTIAZEM CD 240 MG CAPSULE PO SCH (10:45)
[2018-03-05] MEDS: MULTIVITAMIN (CENTRUM) TABLET PO SCH (10:45)
[2018-03-05] MEDS: ASPIRIN EC 325 MG TABLET PO SCH (10:47)
[2018-03-05] MEDS: MAGNESIUM OXIDE 400 MG TABLET PO SCH ×2 (10:47→21:32)
[2018-03-05] MEDS: DOCUSATE SODIUM 100 MG CAPSULE PO SCH (10:47)
[2018-03-05] MEDS: PRAVASTATIN 40 MG TABLET PO SCH (21:32)
[2018-03-05] MEDS: VANCOMYCIN 50 MG/ML 60 ML/BOTTLE PO SCH (21:32)
[2018-03-06] MEDS: VANCOMYCIN 50 MG/ML 60 ML/BOTTLE PO SCH ×5 (00:29→23:50)
[2018-03-06] MEDS: SODIUM CHLORIDE 0.9% 1,000 ML IV SCH ×4 (00:29→23:49)
[2018-03-06 05:01] LABS: Basophils % 0.2 % (0.0-0.8); Eosinophils # 0.4 10*3/uL (0.0-0.87); Eosinophils % 2.6 % (0.00-10.9); Hematocrit 36.5 VOL% (42.0-52.0); Hemoglobin 12.9 GM/DL (14.0-18.0); Immature Granulocytes % 0.4 %; Immature Granulocytes Absolute 0.06 #; Lymphocytes # 2.4 10*3/uL (1.4-4.0); Lymphocytes % 17.1 % (21.2-54.2); Mean Corpuscular HGB Conc 35.3 GM/DL (32-36); Mean Corpuscular Hemoglobin 32 PG (27-34); Mean Corpuscular Volume 91.3 FL (87-102); Mean Platelet Volume 9.8 FL (9.6-12.0); Monocytes # 1.6 10*3/uL (0.11-0.8); Monocytes % 11.3 % (1.7-12.7); Neutrophils # 9.5 10*3/uL (1.4-7.4); Neutrophils % 68.4 % (38.7-73.9); Platelet Count 142 T/CUMM (130-400); Red Cell Distribution Width 12.6 % (9.3-17.3); White Blood Count 13.9 T/CUMM (4-12)
[2018-03-06 05:16] LABS: Calcium 7.9 MG/DL (8.5-10.1); Osmolality,Calculated 272.7 MOS/KG (273-304); Potassium 3.5 MMOL/L (3.5-5.1)
[2018-03-06] MEDS: LEVOTHYROXINE 75 MCG TABLET PO SCH (06:37)
[2018-03-06] MEDS: INSULIN LISPRO 100 UNIT/ML SUBCUT SCH ×4 (07:45→21:23)
[2018-03-06] MEDS: INSULIN NPH/REGULAR 70/30 100 UNIT/ML SUBCUT SCH ×2 (07:46→17:27)
[2018-03-06] MEDS: MULTIVITAMIN (CENTRUM) TABLET PO SCH (09:32)
[2018-03-06] MEDS: PANTOPRAZOLE 40 MG TABLET PO SCH (09:32)
[2018-03-06] MEDS: MAGNESIUM OXIDE 400 MG TABLET PO SCH ×2 (09:32→21:24)
[2018-03-06] MEDS: buPROPion SR 150 MG TABLET PO SCH ×2 (09:32→21:24)
[2018-03-06] MEDS: ASPIRIN EC 325 MG TABLET PO SCH (09:32)
[2018-03-06] MEDS: NITROFURANTOIN MACROCRYSTALS 50 MG CAPSULE PO SCH (09:32)
[2018-03-06] MEDS: hydroCHLOROthiazide 12.5 MG CAPSULE PO SCH (09:32)
[2018-03-06] MEDS: DILTIAZEM CD 240 MG CAPSULE PO SCH (09:33)
[2018-03-06] MEDS: ZINC OXIDE PASTE 113 GM TUBE TOP SCH ×2 (17:27→21:25)
[2018-03-06] MEDS ORDERED: VANCOMYCIN 50 MG/ML 60 ML/BOTTLE PO SCH (21:00)
[2018-03-06] MEDS: PRAVASTATIN 40 MG TABLET PO SCH (21:24)
[2018-03-07] MEDS: VANCOMYCIN 50 MG/ML 60 ML/BOTTLE PO SCH ×3 (05:40→17:43)
[2018-03-07] MEDS: LEVOTHYROXINE 75 MCG TABLET PO SCH (05:41)
[2018-03-07 07:14] LABS: Basophils % 0.2 % (0.0-0.8); Eosinophils # 0.4 10*3/uL (0.0-0.87); Eosinophils % 2.9 % (0.00-10.9); Hematocrit 39.3 VOL% (42.0-52.0); Hemoglobin 13.5 GM/DL (14.0-18.0); Immature Granulocytes % 0.6 %; Immature Granulocytes Absolute 0.07 #; Lymphocytes # 1.5 10*3/uL (1.4-4.0); Lymphocytes % 11.6 % (21.2-54.2); Mean Corpuscular HGB Conc 34.4 GM/DL (32-36); Mean Corpuscular Hemoglobin 32 PG (27-34); Mean Platelet Volume 9.8 FL (9.6-12.0); Monocytes # 1.2 10*3/uL (0.11-0.8); Monocytes % 9.3 % (1.7-12.7); Neutrophils # 9.4 10*3/uL (1.4-7.4); Neutrophils % 75.4 % (38.7-73.9); Platelet Count 143 T/CUMM (130-400); Red Blood Count 4.18 MC/CUMM (3.8-5.5); Red Cell Distribution Width 12.6 % (9.3-17.3); White Blood Count 12.5 T/CUMM (4-12)
[2018-03-07 07:27] LABS: Calcium 7.9 MG/DL (8.5-10.1); Osmolality,Calculated 277.7 MOS/KG (273-304); Potassium 3.4 MMOL/L (3.5-5.1)
[2018-03-07] MEDS: SODIUM CHLORIDE 0.9% 1,000 ML IV SCH ×3 (08:00→21:32)
[2018-03-07] MEDS: INSULIN LISPRO 100 UNIT/ML SUBCUT SCH ×4 (08:34→21:31)
[2018-03-07] MEDS: INSULIN NPH/REGULAR 70/30 100 UNIT/ML SUBCUT SCH ×2 (09:44→17:43)
[2018-03-07] MEDS: MAGNESIUM OXIDE 400 MG TABLET PO SCH ×2 (09:45→21:30)
[2018-03-07] MEDS: DILTIAZEM CD 240 MG CAPSULE PO SCH (09:45)
[2018-03-07] MEDS: NITROFURANTOIN MACROCRYSTALS 50 MG CAPSULE PO SCH (09:45)
[2018-03-07] MEDS: MULTIVITAMIN (CENTRUM) TABLET PO SCH (09:45)
[2018-03-07] MEDS: hydroCHLOROthiazide 12.5 MG CAPSULE PO SCH (09:45)
[2018-03-07] MEDS: buPROPion SR 150 MG TABLET PO SCH ×2 (09:46→21:30)
[2018-03-07] MEDS: ASPIRIN EC 325 MG TABLET PO SCH (09:46)
[2018-03-07] MEDS: PANTOPRAZOLE 40 MG TABLET PO SCH (09:46)
[2018-03-07] MEDS: ZINC OXIDE PASTE 113 GM TUBE TOP SCH ×2 (15:40→21:33)
[2018-03-07] MEDS: PRAVASTATIN 40 MG TABLET PO SCH (21:30)
[2018-03-07] MEDS: POTASSIUM CHLORIDE 8 MEQ CAPSULE PO SCH (21:30)
[2018-03-08] MEDS: VANCOMYCIN 50 MG/ML 60 ML/BOTTLE PO SCH ×4 (01:36→17:47)
[2018-03-08] MEDS: SODIUM CHLORIDE 0.9% 1,000 ML IV SCH ×3 (03:22→17:47)
[2018-03-08] MEDS: LEVOTHYROXINE 75 MCG TABLET PO SCH (05:31)
[2018-03-08] MEDS: INSULIN LISPRO 100 UNIT/ML SUBCUT SCH ×4 (09:51→21:44)
[2018-03-08] MEDS: INSULIN NPH/REGULAR 70/30 100 UNIT/ML SUBCUT SCH ×2 (09:51→17:47)
[2018-03-08] MEDS: PANTOPRAZOLE 40 MG TABLET PO SCH (09:52)
[2018-03-08] MEDS: MAGNESIUM OXIDE 400 MG TABLET PO SCH ×2 (09:52→22:36)
[2018-03-08] MEDS: DILTIAZEM CD 240 MG CAPSULE PO SCH (09:52)
[2018-03-08] MEDS: MULTIVITAMIN (CENTRUM) TABLET PO SCH (09:52)
[2018-03-08] MEDS: ASPIRIN EC 325 MG TABLET PO SCH (09:52)
[2018-03-08] MEDS: NITROFURANTOIN MACROCRYSTALS 50 MG CAPSULE PO SCH (09:52)
[2018-03-08] MEDS: hydroCHLOROthiazide 12.5 MG CAPSULE PO SCH (09:52)
[2018-03-08] MEDS: POTASSIUM CHLORIDE 8 MEQ CAPSULE PO SCH ×2 (09:52→22:36)
[2018-03-08] MEDS: buPROPion SR 150 MG TABLET PO SCH ×2 (09:52→22:37)
[2018-03-08] MEDS: ZINC OXIDE PASTE 113 GM TUBE TOP SCH ×2 (09:54→22:36)
[2018-03-08] MEDS ORDERED: GENTAMICIN INJ 240 MG in SODIUM CHLORIDE 0.9% 100 ML IV SCH (19:00)
[2018-03-08] MEDS ORDERED: PROPOFOL 200 MG/20 ML VIAL IV ONE (21:06)
[2018-03-08] MEDS ORDERED: SEVOFLURANE 1 UNIT/15 MINUTE INH ONE (21:06)
[2018-03-08] MEDS ORDERED: PHENYLEPHRINE 1 MG/10 ML SYRINGE IV ONE (21:07)
[2018-03-08] MEDS ORDERED: GLYCOPYRROLATE 0.4 MG/2 ML VIAL ONE (21:07)
[2018-03-08] MEDS ORDERED: fentaNYL 100 MCG/2 ML VIAL ONE (21:07)
[2018-03-08] MEDS ORDERED: ONDANSETRON 4 MG/2 ML VIAL ONE (21:07)
[2018-03-08] MEDS ORDERED: ETOMIDATE 40 MG/20 ML VIAL IV ONE (21:07)
[2018-03-08] MEDS: PRAVASTATIN 40 MG TABLET PO SCH (22:37)
[2018-03-09] MEDS: SODIUM CHLORIDE 0.9% 1,000 ML IV SCH ×3 (00:10→20:58)
[2018-03-09] MEDS: VANCOMYCIN 50 MG/ML 60 ML/BOTTLE PO SCH ×4 (00:10→18:38)
[2018-03-09] MEDS: LEVOTHYROXINE 75 MCG TABLET PO SCH (06:20)
[2018-03-09 07:09] LABS: Osmolality,Calculated 277.7 MOS/KG (273-304); Potassium 3.4 MMOL/L (3.5-5.1)
[2018-03-09] MEDS: PANTOPRAZOLE 40 MG TABLET PO SCH (09:06)
[2018-03-09] MEDS: NITROFURANTOIN MACROCRYSTALS 50 MG CAPSULE PO SCH (09:06)
[2018-03-09] MEDS: ASPIRIN EC 325 MG TABLET PO SCH (09:06)
[2018-03-09] MEDS: POTASSIUM CHLORIDE 8 MEQ CAPSULE PO SCH ×2 (09:06→20:44)
[2018-03-09] MEDS: MULTIVITAMIN (CENTRUM) TABLET PO SCH (09:06)
[2018-03-09] MEDS: hydroCHLOROthiazide 12.5 MG CAPSULE PO SCH (09:06)
[2018-03-09] MEDS: buPROPion SR 150 MG TABLET PO SCH ×2 (09:06→20:46)
[2018-03-09] MEDS: MAGNESIUM OXIDE 400 MG TABLET PO SCH ×2 (09:06→20:44)
[2018-03-09] MEDS: DILTIAZEM CD 240 MG CAPSULE PO SCH (09:06)
[2018-03-09] MEDS: INSULIN LISPRO 100 UNIT/ML SUBCUT SCH ×4 (09:07→20:40)
[2018-03-09] MEDS: INSULIN NPH/REGULAR 70/30 100 UNIT/ML SUBCUT SCH ×2 (09:07→18:26)
[2018-03-09] MEDS: ZINC OXIDE PASTE 113 GM TUBE TOP SCH ×2 (09:07→20:46)
[2018-03-09] MEDS: LACTOBACILLUS RHAMNOSUS GG CAPSULE PO SCH (14:04)
[2018-03-09] MEDS: PRAVASTATIN 40 MG TABLET PO SCH (20:45)
[2018-03-10] MEDS: SODIUM CHLORIDE 0.9% 1,000 ML IV SCH ×4 (00:49→17:31)
[2018-03-10] MEDS: VANCOMYCIN 50 MG/ML 60 ML/BOTTLE PO SCH ×4 (01:39→17:35)
[2018-03-10] MEDS: LEVOTHYROXINE 75 MCG TABLET PO SCH (06:29)
[2018-03-10 06:49] LABS: Basophils # 0.1 10*3/uL (0.0-0.2); Basophils % 0.4 % (0.0-0.8); Eosinophils # 0.4 10*3/uL (0.0-0.87); Eosinophils % 2.7 % (0.00-10.9); Hematocrit 35.8 VOL% (42.0-52.0); Hemoglobin 11.8 GM/DL (14.0-18.0); Immature Granulocytes % 0.5 %; Immature Granulocytes Absolute 0.07 #; Lymphocytes % 15.3 % (21.2-54.2); Mean Corpuscular Hemoglobin 32 PG (27-34); Mean Platelet Volume 9.3 FL (9.6-12.0); Monocytes # 1.6 10*3/uL (0.11-0.8); Neutrophils # 9.2 10*3/uL (1.4-7.4); Neutrophils % 69.1 % (38.7-73.9); Platelet Count 143 T/CUMM (130-400); Red Blood Count 3.69 MC/CUMM (3.8-5.5); Red Cell Distribution Width 13.2 % (9.3-17.3); White Blood Count 13.4 T/CUMM (4-12)
[2018-03-10 07:20] LABS: Calcium 8.2 MG/DL (8.5-10.1); Osmolality,Calculated 277.8 MOS/KG (273-304); Potassium 3.8 MMOL/L (3.5-5.1)
[2018-03-10] MEDS: buPROPion SR 150 MG TABLET PO SCH ×2 (09:10→20:47)
[2018-03-10] MEDS: INSULIN NPH/REGULAR 70/30 100 UNIT/ML SUBCUT SCH ×2 (09:10→16:12)
[2018-03-10] MEDS: ASPIRIN EC 325 MG TABLET PO SCH (09:10)
[2018-03-10] MEDS: LACTOBACILLUS RHAMNOSUS GG CAPSULE PO SCH (09:10)
[2018-03-10] MEDS: MULTIVITAMIN (CENTRUM) TABLET PO SCH (09:10)
[2018-03-10] MEDS: PANTOPRAZOLE 40 MG TABLET PO SCH (09:10)
[2018-03-10] MEDS: NITROFURANTOIN MACROCRYSTALS 50 MG CAPSULE PO SCH (09:10)
[2018-03-10] MEDS: MAGNESIUM OXIDE 400 MG TABLET PO SCH ×2 (09:10→20:47)
[2018-03-10] MEDS: hydroCHLOROthiazide 12.5 MG CAPSULE PO SCH (09:10)
[2018-03-10] MEDS: POTASSIUM CHLORIDE 8 MEQ CAPSULE PO SCH ×2 (09:10→20:48)
[2018-03-10] MEDS: DILTIAZEM CD 240 MG CAPSULE PO SCH (09:10)
[2018-03-10] MEDS: INSULIN LISPRO 100 UNIT/ML SUBCUT SCH ×4 (09:34→20:48)
[2018-03-10] MEDS: ZINC OXIDE PASTE 113 GM TUBE TOP SCH ×2 (09:36→20:49)
[2018-03-10] MEDS: PRAVASTATIN 40 MG TABLET PO SCH (20:48)
[2018-03-11] MEDS: SODIUM CHLORIDE 0.9% 1,000 ML IV SCH ×2 (00:31→08:59)
[2018-03-11] MEDS: VANCOMYCIN 50 MG/ML 60 ML/BOTTLE PO SCH ×3 (00:40→08:54)
[2018-03-11] MEDS: LEVOTHYROXINE 75 MCG TABLET PO SCH (06:35)
[2018-03-11] MEDS: buPROPion SR 150 MG TABLET PO SCH (08:53)
[2018-03-11] MEDS: MULTIVITAMIN (CENTRUM) TABLET PO SCH (08:53)
[2018-03-11] MEDS: ASPIRIN EC 325 MG TABLET PO SCH (08:53)
[2018-03-11] MEDS: NITROFURANTOIN MACROCRYSTALS 50 MG CAPSULE PO SCH (08:53)
[2018-03-11] MEDS: MAGNESIUM OXIDE 400 MG TABLET PO SCH (08:53)
[2018-03-11] MEDS: hydroCHLOROthiazide 12.5 MG CAPSULE PO SCH (08:53)
[2018-03-11] MEDS: LACTOBACILLUS RHAMNOSUS GG CAPSULE PO SCH (08:53)
[2018-03-11] MEDS: INSULIN NPH/REGULAR 70/30 100 UNIT/ML SUBCUT SCH (08:53)
[2018-03-11] MEDS: DILTIAZEM CD 240 MG CAPSULE PO SCH (08:53)
[2018-03-11] MEDS: POTASSIUM CHLORIDE 8 MEQ CAPSULE PO SCH (08:53)
[2018-03-11] MEDS: PANTOPRAZOLE 40 MG TABLET PO SCH (08:53)
[2018-03-11] MEDS: ZINC OXIDE PASTE 113 GM TUBE TOP SCH (08:54)
[2018-03-11] MEDS: INSULIN LISPRO 100 UNIT/ML SUBCUT SCH ×2 (08:58→13:02)
[2018-03-11 11:14] VITALS: BP 165/88
== END 2018-03-11 12:34 | disposition home health service (06) | DRG 373 ==
LOC: EDBD → EDUNIT# → N.EDINP 12:36 → N.ED 12:36 → N.3E 20:53
PROVIDERS: ADMIT Family Medicine; ATTEND Internal Medicine

== ENCOUNTER 2018-04-02 02:48 | Inpatient (IN) ==
[2018-04-02] MEDS ORDERED: SODIUM CHLORIDE 0.9% 1,000 ML IV STA (03:01)
[2018-04-02] MEDS ORDERED: FLUMAZENIL 0.5 MG/5 ML VIAL IV PRN (03:01)
[2018-04-02 03:30] LABS: Basophils # 0.1 10*3/uL (0.0-0.2); Basophils % 0.5 % (0.0-0.8); Eosinophils # 0.4 10*3/uL (0.0-0.87); Eosinophils % 3.4 % (0.00-10.9); Hematocrit 42.2 VOL% (42.0-52.0); Hemoglobin 14.2 GM/DL (14.0-18.0); Immature Granulocytes % 0.7 %; Immature Granulocytes Absolute 0.08 #; Lymphocytes # 1.8 10*3/uL (1.4-4.0); Mean Corpuscular HGB Conc 33.6 GM/DL (32-36); Mean Corpuscular Hemoglobin 32 PG (27-34); Mean Corpuscular Volume 95.7 FL (87-102); Mean Platelet Volume 10.1 FL (9.6-12.0); Monocytes # 1.3 10*3/uL (0.11-0.8); Monocytes % 11.1 % (1.7-12.7); Neutrophils # 8.4 10*3/uL (1.4-7.4); Neutrophils % 69.3 % (38.7-73.9); Platelet Count 169 T/CUMM (130-400); Red Blood Count 4.41 MC/CUMM (3.8-5.5); Red Cell Distribution Width 12.4 % (9.3-17.3); White Blood Count 12.1 T/CUMM (4-12)
[2018-04-02 03:46] LABS: Alanine Aminotransferase 34 U/L (16-61); Alkaline Phosphatase 104 U/L (45-117); Aspartate Amino Transferase 30 U/L (0-37); Blood Urea Nitrogen 23 MG/DL (7-18); Calcium 8.7 MG/DL (8.5-10.1); Glucose 167 MG/DL (74-106); Osmolality,Calculated 280.8 MOS/KG (273-304); Potassium 3.5 MMOL/L (3.5-5.1); Sodium 137 MMOL/L (136-145); Total Protein 7.8 G/DL (6.4-8.3)
[2018-04-02 03:51] LABS: Ammonia 33 UMOL/L (11-32)
[2018-04-02 04:20] LABS: Apearance,Urine CLEAR (Clear); Bacteria,Urine Occasional /HPF (Few); Bilirubin,Urine Negative (Negative); Blood, Urine Small mg/dL (Negative); Glucose,Urine (UA) Negative (Negative); Ketones,Urine Negative (Negative); Mucus,Urine Occasional /LPF (Occasional); Nitrite,Urine Positive (Negative); Protein,Urine Negative; RBC,Urine 18 /HPF (0-4); Squamous Epithelial Cell,Urine Occasional /HPF (0-10); Urine Specific Gravity 1.014 (1.001-1.035); WBC,Urine 28 /HPF (0-6)
[2018-04-02 04:21] LABS: Barbiturates Screen,Urine Negative (Negative); Benzodiazepines Screen,Urine Negative (Negative); Cannabinoid Screen,Urine Negative (Negative); Opiate Screen,Urine Negative (Negative); Phencyclidine Screen,Urine Negative (Negative); Urine Color Yellow (Yellow)
[2018-04-02] MEDS ORDERED: cefTRIAXone 1,000 MG in SODIUM CHLORIDE 0.9% 100 ML IV STA (04:35)
[2018-04-02] MEDS ORDERED: GLUCAGON 1 MG VIAL IM PRN (04:51)
[2018-04-02] MEDS ORDERED: ONDANSETRON 4 MG/2 ML VIAL IV PRN (04:51)
[2018-04-02] MEDS ORDERED: DEXTROSE 50% 25 GM/50 ML VIAL IV PRN (04:51)
[2018-04-02] MEDS: DEXTROSE 5% NACL 0.9% 1,000 ML IV SCH ×3 (07:00→22:52)
[2018-04-02] MEDS ORDERED: ENOXAPARIN 40 MG/0.4 ML SYRINGE SUBCUT SCH (08:30)
[2018-04-02] MEDS: hydroCHLOROthiazide 12.5 MG CAPSULE PO SCH (09:41)
[2018-04-02] MEDS: MULTIVITAMIN (CENTRUM) TABLET PO SCH (09:42)
[2018-04-02] MEDS: MAGNESIUM OXIDE 400 MG TABLET PO SCH ×2 (09:43→20:46)
[2018-04-02] MEDS: buPROPion SR 150 MG TABLET PO SCH ×2 (09:43→20:50)
[2018-04-02] MEDS: DOCUSATE SODIUM 100 MG CAPSULE PO SCH ×2 (09:43→20:50)
[2018-04-02] MEDS: PANTOPRAZOLE 40 MG TABLET PO SCH (09:43)
[2018-04-02] MEDS: ASPIRIN EC 325 MG TABLET PO SCH (09:44)
[2018-04-02] MEDS: DILTIAZEM CD 240 MG CAPSULE PO SCH (09:48)
[2018-04-02] MEDS: NITROFURANTOIN MACROCRYSTALS 50 MG CAPSULE PO SCH (09:53)
[2018-04-02] MEDS: INSULIN LISPRO 100 UNIT/ML SUBCUT SCH ×3 (13:06→20:50)
[2018-04-02] MEDS: PRAVASTATIN 40 MG TABLET PO SCH (20:49)
[2018-04-03 03:31] LABS: Basophils # 0.1 10*3/uL (0.0-0.2); Basophils % 0.4 % (0.0-0.8); Eosinophils # 0.7 10*3/uL (0.0-0.87); Eosinophils % 5.6 % (0.00-10.9); Hematocrit 36.1 VOL% (42.0-52.0); Hemoglobin 11.9 GM/DL (14.0-18.0); Immature Granulocytes % 0.7 %; Immature Granulocytes Absolute 0.08 #; Lymphocytes # 2.5 10*3/uL (1.4-4.0); Lymphocytes % 21.5 % (21.2-54.2); Mean Corpuscular Hemoglobin 31 PG (27-34); Mean Corpuscular Volume 95.3 FL (87-102); Monocytes # 1.3 10*3/uL (0.11-0.8); Neutrophils # 7.1 10*3/uL (1.4-7.4); Neutrophils % 60.8 % (38.7-73.9); Platelet Count 160 T/CUMM (130-400); Red Blood Count 3.79 MC/CUMM (3.8-5.5); Red Cell Distribution Width 12.7 % (9.3-17.3); White Blood Count 11.7 T/CUMM (4-12)
[2018-04-03 03:55] LABS: Calcium 7.8 MG/DL (8.5-10.1); Free T4 (Free Thyroxine) 1.01 NG/DL (0.76-1.46); Osmolality,Calculated 282.7 MOS/KG (273-304); Potassium 3.6 MMOL/L (3.5-5.1); Risk Ratio 2.32; Thyroid Stimulating Hormone 7.92 uIU/ml (0.358-3.74); VLDL CHOLESTEROL 19.6 MG/DL
[2018-04-03] MEDS: DEXTROSE 5% NACL 0.9% 1,000 ML IV SCH ×3 (05:31→22:06)
[2018-04-03] MEDS: LEVOTHYROXINE 75 MCG TABLET PO SCH (06:05)
[2018-04-03] MEDS: INSULIN LISPRO 100 UNIT/ML SUBCUT SCH ×4 (08:40→22:24)
[2018-04-03] MEDS: PANTOPRAZOLE 40 MG TABLET PO SCH (09:49)
[2018-04-03] MEDS: DILTIAZEM CD 240 MG CAPSULE PO SCH (09:49)
[2018-04-03] MEDS: DOCUSATE SODIUM 100 MG CAPSULE PO SCH ×2 (09:49→22:14)
[2018-04-03] MEDS: NITROFURANTOIN MACROCRYSTALS 50 MG CAPSULE PO SCH (09:50)
[2018-04-03] MEDS: buPROPion SR 150 MG TABLET PO SCH ×2 (09:50→22:07)
[2018-04-03] MEDS: MAGNESIUM OXIDE 400 MG TABLET PO SCH ×2 (09:50→22:07)
[2018-04-03] MEDS: ASPIRIN EC 325 MG TABLET PO SCH (09:50)
[2018-04-03] MEDS: hydroCHLOROthiazide 12.5 MG CAPSULE PO SCH (09:50)
[2018-04-03] MEDS: MULTIVITAMIN (CENTRUM) TABLET PO SCH (09:50)
[2018-04-03] MEDS: PRAVASTATIN 40 MG TABLET PO SCH (22:07)
[2018-04-04 06:38] LABS: Basophils # 0.1 10*3/uL (0.0-0.2); Basophils % 0.7 % (0.0-0.8); Eosinophils # 0.9 10*3/uL (0.0-0.87); Eosinophils % 6.9 % (0.00-10.9); Hemoglobin 12.3 GM/DL (14.0-18.0); Immature Granulocytes % 0.6 %; Immature Granulocytes Absolute 0.08 #; Lymphocytes # 2.6 10*3/uL (1.4-4.0); Lymphocytes % 20.6 % (21.2-54.2); Mean Corpuscular HGB Conc 34.2 GM/DL (32-36); Mean Corpuscular Hemoglobin 32 PG (27-34); Mean Platelet Volume 10.2 FL (9.6-12.0); Monocytes # 1.5 10*3/uL (0.11-0.8); Monocytes % 11.8 % (1.7-12.7); Neutrophils # 7.5 10*3/uL (1.4-7.4); Neutrophils % 59.4 % (38.7-73.9); Osmolality,Calculated 279.7 MOS/KG (273-304); Platelet Count 158 T/CUMM (130-400); Potassium 3.5 MMOL/L (3.5-5.1); Red Blood Count 3.87 MC/CUMM (3.8-5.5); Red Cell Distribution Width 12.6 % (9.3-17.3); White Blood Count 12.7 T/CUMM (4-12)
[2018-04-04] MEDS: DEXTROSE 5% NACL 0.9% 1,000 ML IV SCH ×5 (07:27→21:45)
[2018-04-04] MEDS: INSULIN LISPRO 100 UNIT/ML SUBCUT SCH ×4 (08:07→20:32)
[2018-04-04] MEDS: DOCUSATE SODIUM 100 MG CAPSULE PO SCH ×2 (08:37→20:32)
[2018-04-04] MEDS: MULTIVITAMIN (CENTRUM) TABLET PO SCH (10:34)
[2018-04-04] MEDS: DILTIAZEM CD 240 MG CAPSULE PO SCH (10:35)
[2018-04-04] MEDS: buPROPion SR 150 MG TABLET PO SCH ×2 (10:35→20:32)
[2018-04-04] MEDS: ASPIRIN EC 325 MG TABLET PO SCH (10:35)
[2018-04-04] MEDS: MAGNESIUM OXIDE 400 MG TABLET PO SCH ×2 (10:35→20:32)
[2018-04-04] MEDS: hydroCHLOROthiazide 12.5 MG CAPSULE PO SCH (10:35)
[2018-04-04] MEDS: NITROFURANTOIN MACROCRYSTALS 50 MG CAPSULE PO SCH (10:35)
[2018-04-04] MEDS: LEVOTHYROXINE 75 MCG TABLET PO SCH (10:36)
[2018-04-04] MEDS: PANTOPRAZOLE 40 MG TABLET PO SCH (10:38)
[2018-04-04] MEDS: PRAVASTATIN 40 MG TABLET PO SCH (20:32)
[2018-04-05] MEDS: DEXTROSE 5% NACL 0.9% 1,000 ML IV SCH ×5 (03:25→23:41)
[2018-04-05] MEDS: LEVOTHYROXINE 75 MCG TABLET PO SCH (07:29)
[2018-04-05] MEDS: INSULIN LISPRO 100 UNIT/ML SUBCUT SCH ×5 (08:40→21:27)
[2018-04-05] MEDS: DILTIAZEM CD 240 MG CAPSULE PO SCH (08:42)
[2018-04-05] MEDS: DOCUSATE SODIUM 100 MG CAPSULE PO SCH ×2 (09:00→21:28)
[2018-04-05] MEDS: buPROPion SR 150 MG TABLET PO SCH ×2 (09:00→21:08)
[2018-04-05] MEDS ORDERED: PROPOFOL 200 MG/20 ML VIAL IV ONE (09:00)
[2018-04-05] MEDS ORDERED: LIDOCAINE 2% 5 ML VIAL ONE (09:00)
[2018-04-05] MEDS ORDERED: FLUCONAZOLE 200 MG TABLET PO ONE (13:26)
[2018-04-05] MEDS: NITROFURANTOIN MACROCRYSTALS 50 MG CAPSULE PO SCH (15:43)
[2018-04-05] MEDS: MULTIVITAMIN (CENTRUM) TABLET PO SCH (15:43)
[2018-04-05] MEDS: ASPIRIN EC 325 MG TABLET PO SCH (15:43)
[2018-04-05] MEDS: hydroCHLOROthiazide 12.5 MG CAPSULE PO SCH (15:43)
[2018-04-05] MEDS: PANTOPRAZOLE 40 MG TABLET PO SCH (15:44)
[2018-04-05] MEDS: MAGNESIUM OXIDE 400 MG TABLET PO SCH ×2 (15:44→21:08)
[2018-04-05] MEDS ORDERED: INSULIN NPH/REGULAR 70/30 100 UNIT/ML SUBCUT SCH (16:30)
[2018-04-05] MEDS: PRAVASTATIN 40 MG TABLET PO SCH (21:08)
[2018-04-05] MEDS: ACETAMINOPHEN 325 MG TABLET PO PRN (23:40)
[2018-04-06] MEDS: DEXTROSE 5% NACL 0.9% 1,000 ML IV SCH ×2 (00:06→05:21)
[2018-04-06 04:08] LABS: Basophils # 0.1 10*3/uL (0.0-0.2); Basophils % 0.5 % (0.0-0.8); Eosinophils # 0.6 10*3/uL (0.0-0.87); Eosinophils % 5.4 % (0.00-10.9); Hematocrit 33.6 VOL% (42.0-52.0); Hemoglobin 11.7 GM/DL (14.0-18.0); Immature Granulocytes % 0.5 %; Immature Granulocytes Absolute 0.05 #; Lymphocytes # 2.3 10*3/uL (1.4-4.0); Lymphocytes % 21.9 % (21.2-54.2); Mean Corpuscular HGB Conc 34.8 GM/DL (32-36); Mean Corpuscular Hemoglobin 32 PG (27-34); Mean Corpuscular Volume 91.3 FL (87-102); Mean Platelet Volume 10.3 FL (9.6-12.0); Monocytes # 1.1 10*3/uL (0.11-0.8); Monocytes % 10.1 % (1.7-12.7); Neutrophils # 6.5 10*3/uL (1.4-7.4); Neutrophils % 61.6 % (38.7-73.9); Platelet Count 154 T/CUMM (130-400); Red Blood Count 3.68 MC/CUMM (3.8-5.5); Red Cell Distribution Width 12.5 % (9.3-17.3); White Blood Count 10.5 T/CUMM (4-12)
[2018-04-06 04:21] LABS: Calcium 7.4 MG/DL (8.5-10.1); Osmolality,Calculated 285.4 MOS/KG (273-304); Potassium 2.7 MMOL/L (3.5-5.1)
[2018-04-06] MEDS: ACETAMINOPHEN 325 MG TABLET PO PRN (05:05)
[2018-04-06] MEDS: LEVOTHYROXINE 75 MCG TABLET PO SCH (06:46)
[2018-04-06] MEDS ORDERED: SODIUM CHLORIDE 0.45% 1,000 ML IV SCH (07:30)
[2018-04-06] MEDS ORDERED: INSULIN NPH/REGULAR 70/30 100 UNIT/ML SUBCUT SCH ×3 (07:30→07:38)
[2018-04-06] MEDS ORDERED: SODIUM CHLOR 0.45% KCL 20 MEQ 20 MEQ/1,000 ML BAG IV SCH (08:00)
[2018-04-06] MEDS: POTASSIUM CHLORIDE RIDER 10 MEQ in PREMIX 1 EACH IV SCH ×3 (08:08→12:48)
[2018-04-06] MEDS ORDERED: FLUCONAZOLE 100 MG TABLET PO SCH (09:00)
[2018-04-06] MEDS ORDERED: SKIN HEALING OINT (AQUAPHOR) 50 GM TUBE TOP SCH (09:00)
[2018-04-06] MEDS: INSULIN LISPRO 100 UNIT/ML SUBCUT SCH ×3 (09:24→16:45)
[2018-04-06] MEDS: ASPIRIN EC 325 MG TABLET PO SCH (09:26)
[2018-04-06] MEDS: DILTIAZEM CD 240 MG CAPSULE PO SCH (09:26)
[2018-04-06] MEDS: NITROFURANTOIN MACROCRYSTALS 50 MG CAPSULE PO SCH (09:28)
[2018-04-06] MEDS: PANTOPRAZOLE 40 MG TABLET PO SCH (09:28)
[2018-04-06] MEDS: MAGNESIUM OXIDE 400 MG TABLET PO SCH (09:28)
[2018-04-06] MEDS: hydroCHLOROthiazide 12.5 MG CAPSULE PO SCH (09:28)
[2018-04-06] MEDS: buPROPion SR 150 MG TABLET PO SCH (09:29)
[2018-04-06] MEDS ORDERED: CHOLESTYRAMINE 4 GM PACK PO SCH (09:30)
[2018-04-06] MEDS: DOCUSATE SODIUM 100 MG CAPSULE PO SCH (09:40)
[2018-04-06] MEDS: MULTIVITAMIN (CENTRUM) TABLET PO SCH (10:26)
[2018-04-06 11:32] VITALS: BP 127/75
[2018-04-06] MEDS ORDERED: VANCOMYCIN 50 MG/ML 60 ML/BOTTLE PO SCH (12:00)
[2018-04-06] MEDS ORDERED: POTASSIUM CHLORIDE RIDER 10 MEQ in PREMIX 1 EACH IV SCH (12:30)
== END 2018-04-06 16:45 | disposition home or self-care (01) | DRG 638 ==
LOC: EDUNIT# → EDBD → N.EDINP 02:48 → N.ED 02:48 → N.EDINP 05:17 → N.3E 05:28
PROVIDERS: ADMIT Family Medicine; ATTEND Family Medicine

== ENCOUNTER 2018-07-15 12:57 | Inpatient (IN) ==
[2018-07-15] MEDS ORDERED: MAGNESIUM HYDROXIDE SUSP 30 ML UDCUP PO PRN (13:32)
[2018-07-15] MEDS ORDERED: GLUCAGON 1 MG VIAL IM PRN (13:32)
[2018-07-15] MEDS ORDERED: ACETAMINOPHEN 325 MG TABLET PO PRN (13:32)
[2018-07-15] MEDS ORDERED: ONDANSETRON 4 MG/2 ML VIAL IV PRN (13:32)
[2018-07-15] MEDS ORDERED: DEXTROSE 50% 25 GM/50 ML VIAL IV PRN (13:32)
[2018-07-15] MEDS ORDERED: ENOXAPARIN 40 MG/0.4 ML SYRINGE SUBCUT SCH (14:00)
[2018-07-15 14:59] LABS: Basophils # 0.1 10*3/uL (0.0-0.2); Basophils % 0.6 % (0.0-0.8); Eosinophils # 0.5 10*3/uL (0.0-0.87); Eosinophils % 3.1 % (0.00-10.9); Hematocrit 43.1 VOL% (42.0-52.0); Hemoglobin 14.2 GM/DL (14.0-18.0); Immature Granulocytes % 1.3 %; Immature Granulocytes Absolute 0.23 #; Lymphocytes # 2.5 10*3/uL (1.4-4.0); Lymphocytes % 14.2 % (21.2-54.2); Mean Corpuscular HGB Conc 32.9 GM/DL (32-36); Mean Corpuscular Hemoglobin 31 PG (27-34); Mean Corpuscular Volume 92.9 FL (87-102); Mean Platelet Volume 9.5 FL (9.6-12.0); Monocytes # 1.7 10*3/uL (0.11-0.8); Monocytes % 9.9 % (1.7-12.7); Neutrophils # 12.3 10*3/uL (1.4-7.4); Neutrophils % 70.9 % (38.7-73.9); Platelet Count 377 T/CUMM (130-400); Red Blood Count 4.64 MC/CUMM (3.8-5.5); Red Cell Distribution Width 12.3 % (9.3-17.3); White Blood Count 17.3 T/CUMM (4-12)
[2018-07-15 15:15] LABS: Albumin 2.6 G/DL (3.4-5.0); Bilirubin,Total 0.6 MG/DL (0.2-1.0); Calcium 8.8 MG/DL (8.5-10.1); Osmolality,Calculated 275.1 MOS/KG (273-304); Potassium 3.6 MMOL/L (3.5-5.1); Total Protein 8.4 G/DL (6.4-8.3)
[2018-07-15] MEDS: SODIUM CHLORIDE 0.45% 1,000 ML IV SCH (16:57)
[2018-07-15] MEDS: PANTOPRAZOLE 40 MG TABLET PO SCH (17:01)
[2018-07-15 18:46] LABS: Apearance,Urine CLOUDY (Clear); Bacteria,Urine Many /HPF (Few); Bilirubin,Urine Negative (Negative); Blood, Urine Large mg/dL (Negative); Glucose,Urine (UA) Negative (Negative); Ketones,Urine Negative (Negative); Mucus,Urine Few /LPF (Occasional); Nitrite,Urine Negative (Negative); Protein,Urine 100 MG/DL; RBC,Urine 366 /HPF (0-4); Urine Color Amber (Yellow); Urine Specific Gravity 1.021 (1.001-1.035); WBC,Urine 1565 /HPF (0-6)
[2018-07-15] MEDS: PHENAZOPYRIDINE 95 MG TABLET PO SCH (19:42)
[2018-07-15] MEDS: SIMVASTATIN 20 MG TABLET PO SCH (21:13)
[2018-07-15] MEDS: DUTASTERIDE 0.5 MG CAPSULE PO SCH (21:13)
[2018-07-15] MEDS: MAGNESIUM OXIDE 400 MG TABLET PO SCH (21:13)
[2018-07-15] MEDS: buPROPion SR 150 MG TABLET PO SCH (21:13)
[2018-07-16] MEDS: SODIUM CHLORIDE 0.45% 1,000 ML IV SCH ×2 (00:45→10:11)
[2018-07-16 04:41] LABS: Basophils # 0.1 10*3/uL (0.0-0.2); Basophils % 0.4 % (0.0-0.8); Eosinophils # 0.7 10*3/uL (0.0-0.87); Hematocrit 35.7 VOL% (42.0-52.0); Immature Granulocytes % 0.8 %; Immature Granulocytes Absolute 0.13 #; Lymphocytes # 3.5 10*3/uL (1.4-4.0); Mean Corpuscular HGB Conc 33.6 GM/DL (32-36); Mean Corpuscular Hemoglobin 31 PG (27-34); Mean Corpuscular Volume 91.5 FL (87-102); Mean Platelet Volume 9.6 FL (9.6-12.0); Monocytes # 1.7 10*3/uL (0.11-0.8); Monocytes % 10.3 % (1.7-12.7); Neutrophils # 10.4 10*3/uL (1.4-7.4); Neutrophils % 63.5 % (38.7-73.9); Platelet Count 276 T/CUMM (130-400); Red Cell Distribution Width 12.3 % (9.3-17.3); White Blood Count 16.4 T/CUMM (4-12)
[2018-07-16 05:15] LABS: Calcium 8.1 MG/DL (8.5-10.1); Osmolality,Calculated 271.4 MOS/KG (273-304); Potassium 3.1 MMOL/L (3.5-5.1); Risk Ratio 5.38; VLDL CHOLESTEROL 27.4 MG/DL
[2018-07-16 05:22] LABS: Thyroid Stimulating Hormone 5.06 uIU/ml (0.358-3.74)
[2018-07-16] MEDS: LEVOTHYROXINE 75 MCG TABLET PO SCH (06:20)
[2018-07-16] MEDS ORDERED: POTASSIUM CHLORIDE INJ 20 MEQ in SODIUM CHLORIDE 0.45% 1,000 ML IV SCH (08:21)
[2018-07-16] MEDS: INSULIN NPH/REGULAR 70/30 100 UNIT/ML SUBCUT SCH ×2 (09:14→16:58)
[2018-07-16] MEDS: hydroCHLOROthiazide 12.5 MG CAPSULE PO SCH (09:16)
[2018-07-16] MEDS: PANTOPRAZOLE 40 MG TABLET PO SCH (09:16)
[2018-07-16] MEDS: SODIUM CHLOR 0.45% KCL 20 MEQ 20 MEQ/1,000 ML BAG IV SCH ×2 (09:16→22:16)
[2018-07-16] MEDS: buPROPion SR 150 MG TABLET PO SCH ×2 (09:16→20:42)
[2018-07-16] MEDS: DILTIAZEM CD 240 MG CAPSULE PO SCH (09:16)
[2018-07-16] MEDS: ASPIRIN EC 325 MG TABLET PO SCH (09:16)
[2018-07-16] MEDS: PHENAZOPYRIDINE 95 MG TABLET PO SCH ×2 (09:16→16:57)
[2018-07-16] MEDS: MAGNESIUM OXIDE 400 MG TABLET PO SCH ×2 (09:16→20:41)
[2018-07-16] MEDS: NITROFURANTOIN MACROCRYSTALS 50 MG CAPSULE PO SCH (09:16)
[2018-07-16] MEDS: MULTIVITAMIN (CENTRUM) TABLET PO SCH (09:16)
[2018-07-16] MEDS ORDERED: POTASSIUM CHLORIDE 20 MEQ TABLET PO ONE (13:31)
[2018-07-16] MEDS ORDERED: VANCOMYCIN INJ 1,000 MG in SODIUM CHLORIDE 0.9% 250 ML IV SCH (14:00)
[2018-07-16] MEDS: VANCOMYCIN INJ 2,000 MG in SODIUM CHLORIDE 0.9% 500 ML IV SCH (15:03)
[2018-07-16] MEDS: DUTASTERIDE 0.5 MG CAPSULE PO SCH (20:41)
[2018-07-16] MEDS: SIMVASTATIN 20 MG TABLET PO SCH (20:42)
[2018-07-17] MEDS: VANCOMYCIN INJ 2,000 MG in SODIUM CHLORIDE 0.9% 500 ML IV SCH ×2 (02:40→15:43)
[2018-07-17] MEDS: SODIUM CHLOR 0.45% KCL 20 MEQ 20 MEQ/1,000 ML BAG IV SCH ×3 (04:24→17:42)
[2018-07-17] MEDS: LEVOTHYROXINE 75 MCG TABLET PO SCH (05:35)
[2018-07-17 05:40] LABS: Basophils # 0.1 10*3/uL (0.0-0.2); Basophils % 0.5 % (0.0-0.8); Eosinophils # 0.5 10*3/uL (0.0-0.87); Eosinophils % 3.1 % (0.00-10.9); Hematocrit 34.2 VOL% (42.0-52.0); Hemoglobin 11.3 GM/DL (14.0-18.0); Immature Granulocytes % 0.9 %; Immature Granulocytes Absolute 0.13 #; Lymphocytes % 19.9 % (21.2-54.2); Mean Corpuscular Hemoglobin 31 PG (27-34); Mean Corpuscular Volume 93.4 FL (87-102); Mean Platelet Volume 9.5 FL (9.6-12.0); Monocytes # 1.8 10*3/uL (0.11-0.8); Monocytes % 11.7 % (1.7-12.7); Neutrophils # 9.8 10*3/uL (1.4-7.4); Neutrophils % 63.9 % (38.7-73.9); Platelet Count 272 T/CUMM (130-400); Red Blood Count 3.66 MC/CUMM (3.8-5.5); Red Cell Distribution Width 12.1 % (9.3-17.3); White Blood Count 15.2 T/CUMM (4-12)
[2018-07-17 06:00] LABS: Potassium 3.5 MMOL/L (3.5-5.1)
[2018-07-17] MEDS ORDERED: LIDOCAINE 1% 20 ML VIAL ONE (09:33)
[2018-07-17] MEDS ORDERED: fentaNYL 100 MCG/2 ML VIAL ONE (10:07)
[2018-07-17] MEDS ORDERED: SEVOFLURANE 1 UNIT/15 MINUTE INH ONE (10:07)
[2018-07-17] MEDS ORDERED: PROPOFOL 200 MG/20 ML VIAL IV ONE (10:07)
[2018-07-17] MEDS ORDERED: MIDAZOLAM 2 MG/2 ML VIAL ONE (10:07)
[2018-07-17] MEDS ORDERED: PHENYLEPHRINE 1 MG/10 ML SYRINGE IV ONE (10:08)
[2018-07-17] MEDS: INSULIN NPH/REGULAR 70/30 100 UNIT/ML SUBCUT SCH ×2 (11:03→17:40)
[2018-07-17] MEDS: ASPIRIN EC 325 MG TABLET PO SCH (11:03)
[2018-07-17] MEDS: PHENAZOPYRIDINE 95 MG TABLET PO SCH ×2 (11:04→16:19)
[2018-07-17] MEDS: MAGNESIUM OXIDE 400 MG TABLET PO SCH ×2 (11:45→20:40)
[2018-07-17] MEDS: DILTIAZEM CD 240 MG CAPSULE PO SCH (11:45)
[2018-07-17] MEDS: NITROFURANTOIN MACROCRYSTALS 50 MG CAPSULE PO SCH (11:45)
[2018-07-17] MEDS: hydroCHLOROthiazide 12.5 MG CAPSULE PO SCH (11:45)
[2018-07-17] MEDS: buPROPion SR 150 MG TABLET PO SCH ×2 (11:45→20:38)
[2018-07-17] MEDS: MULTIVITAMIN (CENTRUM) TABLET PO SCH (11:45)
[2018-07-17] MEDS: PANTOPRAZOLE 40 MG TABLET PO SCH (11:46)
[2018-07-17] MEDS: busPIRone 5 MG TABLET PO SCH ×2 (16:18→20:38)
[2018-07-17] MEDS: DUTASTERIDE 0.5 MG CAPSULE PO SCH (20:39)
[2018-07-17] MEDS: SIMVASTATIN 20 MG TABLET PO SCH (20:40)
[2018-07-18] MEDS: SODIUM CHLOR 0.45% KCL 20 MEQ 20 MEQ/1,000 ML BAG IV SCH ×3 (00:29→21:02)
[2018-07-18] MEDS: VANCOMYCIN INJ 2,000 MG in SODIUM CHLORIDE 0.9% 500 ML IV SCH ×2 (03:49→15:37)
[2018-07-18 05:02] LABS: Basophils # 0.1 10*3/uL (0.0-0.2); Basophils % 0.6 % (0.0-0.8); Eosinophils # 0.5 10*3/uL (0.0-0.87); Eosinophils % 3.4 % (0.00-10.9); Hematocrit 34.2 VOL% (42.0-52.0); Hemoglobin 11.3 GM/DL (14.0-18.0); Immature Granulocytes % 0.7 %; Lymphocytes # 2.8 10*3/uL (1.4-4.0); Mean Corpuscular Hemoglobin 31 PG (27-34); Mean Corpuscular Volume 92.7 FL (87-102); Mean Platelet Volume 9.8 FL (9.6-12.0); Monocytes # 1.3 10*3/uL (0.11-0.8); Monocytes % 8.9 % (1.7-12.7); Neutrophils % 67.4 % (38.7-73.9); Platelet Count 285 T/CUMM (130-400); Red Blood Count 3.69 MC/CUMM (3.8-5.5); Red Cell Distribution Width 12.3 % (9.3-17.3); White Blood Count 14.8 T/CUMM (4-12)
[2018-07-18] MEDS: LEVOTHYROXINE 75 MCG TABLET PO SCH (06:11)
[2018-07-18] MEDS: INSULIN NPH/REGULAR 70/30 100 UNIT/ML SUBCUT SCH ×2 (09:15→17:31)
[2018-07-18] MEDS: DILTIAZEM CD 240 MG CAPSULE PO SCH (09:16)
[2018-07-18] MEDS: busPIRone 5 MG TABLET PO SCH ×3 (09:18→21:01)
[2018-07-18] MEDS: PHENAZOPYRIDINE 95 MG TABLET PO SCH ×2 (09:18→17:33)
[2018-07-18] MEDS: hydroCHLOROthiazide 12.5 MG CAPSULE PO SCH (09:19)
[2018-07-18] MEDS: buPROPion SR 150 MG TABLET PO SCH ×2 (09:19→21:01)
[2018-07-18] MEDS: NITROFURANTOIN MACROCRYSTALS 50 MG CAPSULE PO SCH (09:19)
[2018-07-18] MEDS: MAGNESIUM OXIDE 400 MG TABLET PO SCH ×2 (09:19→21:01)
[2018-07-18] MEDS: PANTOPRAZOLE 40 MG TABLET PO SCH (09:19)
[2018-07-18] MEDS: MULTIVITAMIN (CENTRUM) TABLET PO SCH (09:19)
[2018-07-18] MEDS: ASPIRIN EC 325 MG TABLET PO SCH (09:19)
[2018-07-18] MEDS: SODIUM HYPOCHLORITE 0.25% IRRIG 473 ML BOTTLE TOP SCH (11:20)
[2018-07-18] MEDS: SIMVASTATIN 20 MG TABLET PO SCH (21:01)
[2018-07-18] MEDS: DUTASTERIDE 0.5 MG CAPSULE PO SCH (21:01)
[2018-07-19] MEDS: cefTRIAXone 1,000 MG VIAL IV SCH ×2 (04:13→21:55)
[2018-07-19] MEDS: SODIUM CHLOR 0.45% KCL 20 MEQ 20 MEQ/1,000 ML BAG IV SCH ×3 (04:14→19:40)
[2018-07-19 06:11] LABS: Basophils # 0.1 10*3/uL (0.0-0.2); Basophils % 0.5 % (0.0-0.8); Eosinophils # 0.4 10*3/uL (0.0-0.87); Eosinophils % 2.8 % (0.00-10.9); Hematocrit 35.8 VOL% (42.0-52.0); Hemoglobin 11.7 GM/DL (14.0-18.0); Immature Granulocytes % 1.3 %; Immature Granulocytes Absolute 0.19 #; Lymphocytes % 13.5 % (21.2-54.2); Mean Corpuscular HGB Conc 32.7 GM/DL (32-36); Mean Corpuscular Hemoglobin 30 PG (27-34); Mean Corpuscular Volume 92.7 FL (87-102); Mean Platelet Volume 9.5 FL (9.6-12.0); Monocytes # 1.5 10*3/uL (0.11-0.8); Neutrophils # 10.5 10*3/uL (1.4-7.4); Neutrophils % 71.9 % (38.7-73.9); Platelet Count 294 T/CUMM (130-400); Red Blood Count 3.86 MC/CUMM (3.8-5.5); Red Cell Distribution Width 12.3 % (9.3-17.3); White Blood Count 14.6 T/CUMM (4-12)
[2018-07-19] MEDS: LEVOTHYROXINE 75 MCG TABLET PO SCH (06:24)
[2018-07-19 06:27] LABS: Calcium 8.4 MG/DL (8.5-10.1); Osmolality,Calculated 271.1 MOS/KG (273-304); Potassium 3.7 MMOL/L (3.5-5.1)
[2018-07-19] MEDS: DILTIAZEM CD 240 MG CAPSULE PO SCH (09:29)
[2018-07-19] MEDS: hydroCHLOROthiazide 12.5 MG CAPSULE PO SCH (09:30)
[2018-07-19] MEDS: MULTIVITAMIN (CENTRUM) TABLET PO SCH (09:30)
[2018-07-19] MEDS: buPROPion SR 150 MG TABLET PO SCH ×2 (09:30→21:55)
[2018-07-19] MEDS: PHENAZOPYRIDINE 95 MG TABLET PO SCH ×2 (09:30→18:19)
[2018-07-19] MEDS: busPIRone 5 MG TABLET PO SCH ×3 (09:31→21:54)
[2018-07-19] MEDS: PANTOPRAZOLE 40 MG TABLET PO SCH (09:31)
[2018-07-19] MEDS: ASPIRIN EC 325 MG TABLET PO SCH (09:31)
[2018-07-19] MEDS: MAGNESIUM OXIDE 400 MG TABLET PO SCH ×2 (09:31→21:55)
[2018-07-19] MEDS: NITROFURANTOIN MACROCRYSTALS 50 MG CAPSULE PO SCH (09:31)
[2018-07-19] MEDS: SODIUM HYPOCHLORITE 0.25% IRRIG 473 ML BOTTLE TOP SCH (09:40)
[2018-07-19] MEDS ORDERED: VANCOMYCIN INJ 2,000 MG in SODIUM CHLORIDE 0.9% 500 ML IV SCH (15:00)
[2018-07-19] MEDS: INSULIN NPH/REGULAR 70/30 100 UNIT/ML SUBCUT SCH (16:37)
[2018-07-19] MEDS: SIMVASTATIN 20 MG TABLET PO SCH (21:55)
[2018-07-19] MEDS: DUTASTERIDE 0.5 MG CAPSULE PO SCH (21:55)
[2018-07-19] MEDS ORDERED: ZALEPLON 5 MG CAPSULE ONE (22:23)
[2018-07-19] MEDS: ZALEPLON 5 MG CAPSULE PO PRN (22:24)
[2018-07-20] MEDS: SODIUM CHLOR 0.45% KCL 20 MEQ 20 MEQ/1,000 ML BAG IV SCH ×3 (03:46→22:45)
[2018-07-20] MEDS: LEVOTHYROXINE 75 MCG TABLET PO SCH (05:55)
[2018-07-20] MEDS ORDERED: LIDOCAINE 1% 20 ML VIAL ONE (06:35)
[2018-07-20 06:49] LABS: Basophils # 0.1 10*3/uL (0.0-0.2); Basophils % 0.5 % (0.0-0.8); Eosinophils # 0.4 10*3/uL (0.0-0.87); Eosinophils % 3.4 % (0.00-10.9); Hematocrit 34.5 VOL% (42.0-52.0); Hemoglobin 11.3 GM/DL (14.0-18.0); Immature Granulocytes % 0.8 %; Lymphocytes # 2.7 10*3/uL (1.4-4.0); Mean Corpuscular HGB Conc 32.8 GM/DL (32-36); Mean Corpuscular Hemoglobin 31 PG (27-34); Mean Corpuscular Volume 93.2 FL (87-102); Mean Platelet Volume 9.2 FL (9.6-12.0); Monocytes # 1.2 10*3/uL (0.11-0.8); Neutrophils # 7.6 10*3/uL (1.4-7.4); Neutrophils % 63.3 % (38.7-73.9); Platelet Count 255 T/CUMM (130-400); Red Cell Distribution Width 12.4 % (9.3-17.3); White Blood Count 12.1 T/CUMM (4-12)
[2018-07-20 07:12] LABS: Calcium 8.1 MG/DL (8.5-10.1); Osmolality,Calculated 276.7 MOS/KG (273-304)
[2018-07-20] MEDS ORDERED: ONDANSETRON 4 MG/2 ML VIAL ONE (08:18)
[2018-07-20] MEDS ORDERED: PROPOFOL 200 MG/20 ML VIAL IV ONE (08:18)
[2018-07-20] MEDS ORDERED: SEVOFLURANE 1 UNIT/15 MINUTE INH ONE (08:18)
[2018-07-20] MEDS ORDERED: fentaNYL 100 MCG/2 ML VIAL ONE (08:18)
[2018-07-20] MEDS ORDERED: PHENYLEPHRINE 1 MG/10 ML SYRINGE IV ONE (08:18)
[2018-07-20] MEDS ORDERED: SUCCINYLCHOLINE 200 MG/10 ML VIAL ONE (08:19)
[2018-07-20] MEDS ORDERED: LACTATED RINGERS 1,000 ML IV ONE (08:19)
[2018-07-20] MEDS: PHENAZOPYRIDINE 95 MG TABLET PO SCH ×2 (09:49→18:05)
[2018-07-20] MEDS: buPROPion SR 150 MG TABLET PO SCH ×2 (09:50→22:15)
[2018-07-20] MEDS: busPIRone 5 MG TABLET PO SCH ×3 (09:50→22:15)
[2018-07-20] MEDS: ASPIRIN EC 325 MG TABLET PO SCH (09:50)
[2018-07-20] MEDS: hydroCHLOROthiazide 12.5 MG CAPSULE PO SCH (09:50)
[2018-07-20] MEDS: LINEZOLID 600 MG TABLET PO SCH ×2 (09:50→22:15)
[2018-07-20] MEDS: NITROFURANTOIN MACROCRYSTALS 50 MG CAPSULE PO SCH (09:50)
[2018-07-20] MEDS: LACTOBACILLUS RHAMNOSUS GG CAPSULE PO SCH (09:50)
[2018-07-20] MEDS: MULTIVITAMIN (CENTRUM) TABLET PO SCH (09:50)
[2018-07-20] MEDS: MAGNESIUM OXIDE 400 MG TABLET PO SCH ×2 (09:50→22:15)
[2018-07-20] MEDS: PANTOPRAZOLE 40 MG TABLET PO SCH (09:50)
[2018-07-20] MEDS: DILTIAZEM CD 240 MG CAPSULE PO SCH (09:51)
[2018-07-20] MEDS: INSULIN NPH/REGULAR 70/30 100 UNIT/ML SUBCUT SCH ×2 (09:52→17:33)
[2018-07-20] MEDS: SODIUM HYPOCHLORITE 0.25% IRRIG 473 ML BOTTLE TOP SCH (09:53)
[2018-07-20] MEDS: SIMVASTATIN 20 MG TABLET PO SCH (22:15)
[2018-07-20] MEDS: DUTASTERIDE 0.5 MG CAPSULE PO SCH (22:15)
[2018-07-20] MEDS: cefTRIAXone 1,000 MG VIAL IV SCH (22:30)
[2018-07-21 06:05] LABS: Basophils # 0.1 10*3/uL (0.0-0.2); Basophils % 0.5 % (0.0-0.8); Eosinophils # 0.5 10*3/uL (0.0-0.87); Eosinophils % 3.8 % (0.00-10.9); Hemoglobin 11.1 GM/DL (14.0-18.0); Immature Granulocytes Absolute 0.13 #; Lymphocytes # 2.6 10*3/uL (1.4-4.0); Lymphocytes % 19.6 % (21.2-54.2); Mean Corpuscular HGB Conc 32.6 GM/DL (32-36); Mean Corpuscular Hemoglobin 31 PG (27-34); Mean Corpuscular Volume 93.9 FL (87-102); Mean Platelet Volume 9.2 FL (9.6-12.0); Monocytes # 1.1 10*3/uL (0.11-0.8); Monocytes % 8.3 % (1.7-12.7); Neutrophils # 8.7 10*3/uL (1.4-7.4); Neutrophils % 66.8 % (38.7-73.9); Platelet Count 258 T/CUMM (130-400); Red Blood Count 3.62 MC/CUMM (3.8-5.5); Red Cell Distribution Width 12.3 % (9.3-17.3)
[2018-07-21] MEDS: LEVOTHYROXINE 75 MCG TABLET PO SCH (06:05)
[2018-07-21] MEDS: SODIUM CHLOR 0.45% KCL 20 MEQ 20 MEQ/1,000 ML BAG IV SCH (06:07)
[2018-07-21 06:59] LABS: Calcium 7.9 MG/DL (8.5-10.1); Potassium 4.1 MMOL/L (3.5-5.1)
[2018-07-21] MEDS: POTASSIUM CHLORIDE IV SCH ×2 (09:36→20:37)
[2018-07-21] MEDS: MAGNESIUM SULF IV SCH ×2 (09:36→20:37)
[2018-07-21] MEDS: [UNRECOGNIZED DRUG - OTHER] IV SCH ×2 (09:36→20:37)
[2018-07-21] MEDS: INSULIN NPH/REGULAR 70/30 100 UNIT/ML SUBCUT SCH ×2 (09:38→17:37)
[2018-07-21] MEDS: LINEZOLID 600 MG TABLET PO SCH ×2 (09:41→20:38)
[2018-07-21] MEDS: hydroCHLOROthiazide 12.5 MG CAPSULE PO SCH (09:41)
[2018-07-21] MEDS: DILTIAZEM CD 240 MG CAPSULE PO SCH (09:41)
[2018-07-21] MEDS: LACTOBACILLUS RHAMNOSUS GG CAPSULE PO SCH (09:42)
[2018-07-21] MEDS: busPIRone 5 MG TABLET PO SCH ×3 (09:42→20:37)
[2018-07-21] MEDS: PHENAZOPYRIDINE 95 MG TABLET PO SCH ×2 (09:42→17:36)
[2018-07-21] MEDS: PANTOPRAZOLE 40 MG TABLET PO SCH (09:43)
[2018-07-21] MEDS: MAGNESIUM OXIDE 400 MG TABLET PO SCH ×2 (09:43→20:38)
[2018-07-21] MEDS: MULTIVITAMIN (CENTRUM) TABLET PO SCH (09:43)
[2018-07-21] MEDS: buPROPion SR 150 MG TABLET PO SCH ×2 (09:43→20:38)
[2018-07-21] MEDS: ASPIRIN EC 325 MG TABLET PO SCH (09:43)
[2018-07-21] MEDS: NITROFURANTOIN MACROCRYSTALS 50 MG CAPSULE PO SCH (09:43)
[2018-07-21] MEDS ORDERED: LOPERAMIDE 2 MG CAPSULE PO PRN (12:30)
[2018-07-21] MEDS: SODIUM HYPOCHLORITE 0.25% IRRIG 473 ML BOTTLE TOP SCH (14:00)
[2018-07-21] MEDS: SIMVASTATIN 20 MG TABLET PO SCH (20:38)
[2018-07-21] MEDS: DUTASTERIDE 0.5 MG CAPSULE PO SCH (20:38)
[2018-07-21] MEDS: cefTRIAXone 1,000 MG VIAL IV SCH (22:59)
[2018-07-21] MEDS: ZALEPLON 5 MG CAPSULE PO PRN (22:59)
[2018-07-21] MEDS ORDERED: SODIUM CHLORIDE 0.65% NASAL SPRAY 45 ML BOTTLE BOTH NARES PRN (23:05)
[2018-07-22 06:05] LABS: Basophils # 0.1 10*3/uL (0.0-0.2); Basophils % 0.5 % (0.0-0.8); Eosinophils # 0.4 10*3/uL (0.0-0.87); Eosinophils % 3.7 % (0.00-10.9); Hematocrit 31.7 VOL% (42.0-52.0); Hemoglobin 10.6 GM/DL (14.0-18.0); Immature Granulocytes Absolute 0.12 #; Lymphocytes # 2.9 10*3/uL (1.4-4.0); Lymphocytes % 24.5 % (21.2-54.2); Mean Corpuscular HGB Conc 33.4 GM/DL (32-36); Mean Corpuscular Hemoglobin 31 PG (27-34); Mean Corpuscular Volume 93.2 FL (87-102); Mean Platelet Volume 9.1 FL (9.6-12.0); Monocytes # 1.1 10*3/uL (0.11-0.8); Monocytes % 9.3 % (1.7-12.7); Neutrophils # 7.2 10*3/uL (1.4-7.4); Platelet Count 251 T/CUMM (130-400); Red Cell Distribution Width 12.4 % (9.3-17.3); White Blood Count 11.9 T/CUMM (4-12)
[2018-07-22 06:23] LABS: Calcium 7.9 MG/DL (8.5-10.1); Osmolality,Calculated 274.8 MOS/KG (273-304); Potassium 3.5 MMOL/L (3.5-5.1)
[2018-07-22] MEDS: LEVOTHYROXINE 75 MCG TABLET PO SCH (06:30)
[2018-07-22] MEDS ORDERED: INSULIN NPH/REGULAR 70/30 100 UNIT/ML SUBCUT SCH ×2 (08:38→17:00)
[2018-07-22] MEDS: MAGNESIUM SULF IV SCH (08:41)
[2018-07-22] MEDS: POTASSIUM CHLORIDE IV SCH (08:41)
[2018-07-22] MEDS: [UNRECOGNIZED DRUG - OTHER] IV SCH (08:41)
[2018-07-22] MEDS: MAGNESIUM OXIDE 400 MG TABLET PO SCH (09:16)
[2018-07-22] MEDS: NITROFURANTOIN MACROCRYSTALS 50 MG CAPSULE PO SCH (09:17)
[2018-07-22] MEDS: ASPIRIN EC 325 MG TABLET PO SCH (09:17)
[2018-07-22] MEDS: LACTOBACILLUS RHAMNOSUS GG CAPSULE PO SCH (09:17)
[2018-07-22] MEDS: busPIRone 5 MG TABLET PO SCH ×2 (09:17→15:04)
[2018-07-22] MEDS: hydroCHLOROthiazide 12.5 MG CAPSULE PO SCH (09:18)
[2018-07-22] MEDS: DILTIAZEM CD 240 MG CAPSULE PO SCH (09:18)
[2018-07-22] MEDS: LINEZOLID 600 MG TABLET PO SCH (09:18)
[2018-07-22] MEDS: PHENAZOPYRIDINE 95 MG TABLET PO SCH ×2 (09:18→17:14)
[2018-07-22] MEDS: PANTOPRAZOLE 40 MG TABLET PO SCH (09:19)
[2018-07-22] MEDS: buPROPion SR 150 MG TABLET PO SCH (09:19)
[2018-07-22] MEDS: MULTIVITAMIN (CENTRUM) TABLET PO SCH (15:03)
[2018-07-22 17:42] VITALS: BP 147/80
== END 2018-07-22 17:23 | DRG 264 ==
LOC: N.5E 13:50
PROVIDERS: ADMIT Family Medicine; ATTEND Family Medicine